=== PATIENT | female | born 1940 | race Caucasian/White ===

== ENCOUNTER 2019-04-06 07:40 | Outpatient (CLI) | payer MEDICARE, SELFPAY ==
--- NOTE | 2019-04-11 | SLEEP_ITS ---
CPAP Titration DATE OF STUDY: 04/06/2019 ORDERING PHYSICIAN: Katelynn Larsen M.D. REASON FOR THIS STUDY: Moderate obstructive sleep apnea on a prior study, 01/26/2019. HISTORY: This patient is a 78-year-old female, 72 inches tall, weighing 270 pounds with a body mass index of 36.6. On 01/26/2019, she underwent a basic nocturnal polysomnogram for complaints of tiredness and excessive daytime sleepiness. She had an apnea-hypopnea index of 19.5 with a minimum saturation of 88%. Her sleep apnea was severe during supine REM with an AHI of 32.2, worse in non-supine REM. She returns for a CPAP titration. MEDICAL COMORBIDITIES: 1. Paroxysmal atrial fibrillation. 2. Hypertension. 3. Hyperlipidemia. 4. Morbid obesity. 5. Anxiety. 6. COPD. 7. Hypothyroidism. 8. Degenerative joint disease. 9. Gastroesophageal reflux disease. HABITS: No history of tobacco. No alcohol. No recreational drugs. She does consume caffeine. DESCRIPTION OF THE STUDY: On the [place] Sleepiness Scale, her score was 12. This was conducted as a full night CPAP titration using the [employer] multiple channel system including EOG, EEG, submental EMG, EKG, nasal and oral airflow using thermistors and nasal pressure sensors, chest and abdominal belts, body position data and pulse oximetry. The study was scored using CMS guidelines. Duration of the study was 390.3 minutes. Sleep time was 307 minutes. Sleep efficiency was 78.7%. Sleep latency was prolonged at 31.9 minutes. REM latency was short at 70 minutes. There were 21 awakenings and the patient spent 14% of the study awake after sleep onset, 51.4 minutes. Sleep architecture showed 6.7% stage I sleep, 63.8% stage II sleep, no stage III sleep, and 15.2% stage REM. Sleep architecture was relatively well consolidated with 3 REM episodes. The apnea-hypopnea index was 6.6. The obstructive index was 6.1 and the central index was 0.6. During supine REM, the patient had 1 obstructive apnea, 2 central apneas, 16 obstructive hypopneas for an index of 20.9. In supine non-REM, she had 1 obstructive apnea, 1 central apnea, 13 obstructive hypopneas for an index of 3.6. No events occurred in non-supine non-REM. The lowest desaturation was 81%. The patient spent 2.9 minutes below 88%, 0.7% of the study. There were 32 desaturations of 4% or greater for an index of 4.9. This was higher during REM at 19.8. AROUSALS: Fifty-six arousals for an index of 8.6. There were 14 snores for an index of 2.2, 36 spontaneous arousals for an index of 5.5, and 6 limb movements for an arousal index of 0.9. LIMB MOVEMENTS: Thirty-seven limb movements for an index of 7.2. EKG: Sinus rhythm, sinus bradycardia, mean heart rate 58. During this titration, the patient used a small AirFit P10 nasal pillow, heated humidity with an initial pressure of 5 cm titrating up to 10 cm. At 10 cm, the patient had 1 hour 31 minutes in bed, 25 minutes in REM, 1 hour in non-REM, 1 central apnea, 2 hypopneas for an index of 2.1, and a minimum saturation of 89%. Sleep efficiency was 92%. IMPRESSION: 1. This CPAP titration shows an optimal pressure of 10 cm of water pressure using an AirFit P10 nasal pillow, small size with heated humidity. This should be used with all episodes of sleep. 2. Events were worse in supine REM. This appeared to be optimized at optimal pressure. 3. Other medical comorbidities as listed. Close clinical followup is recommended. Snoring was mild and intermittent and this resolved at the optimal pressure. MICHAEL KOHLI M.D. BOILER REPAIRMAN BOILER REPAIRMAN D I MT:
== END 2019-04-06 07:41 | disposition home or self-care (01) ==
LOC: ANHCSM 07:40
PROVIDERS: PCP Family Medicine; Visit Provider Internal Medicine Cardiovascular Disease
DX: G47.33 Obstructive sleep apnea (adult) (pediatric) (principal); I10 Essential (primary) hypertension; J44.9 Chronic obstructive pulmonary disease, unspecified; E03.9 Hypothyroidism, unspecified; I48.0 Paroxysmal atrial fibrillation; K21.9 Gastro-esophageal reflux disease without esophagitis
CPT/HCPCS: 95811

== ENCOUNTER 2019-04-13 09:19 | Outpatient (CLI) | payer MEDICARE, SELFPAY ==
[2019-04-13 09:32] LABS: Basophils Absolute Auto 0.1 K/mm3 (0.0-0.1); Eosinophils Absolute Auto 0.2 K/mm3 (0-0.3); Eosinophils Percent Auto 2.4 % (0-4.4); Hematocrit 43.7 % (37.0-47.0); Hemoglobin 14.2 g/dL (12.0-15.0); Immature Granulocyte Absolute 0.01 K/mm3 (0.00-0.031); Immature Granulocyte Percent A 0.2 % (0-0.5); Lymphocytes Absolute Auto 2.12 K/mm3 (0.9-3.2); Lymphocytes Percent Auto 34.4 % (18.3-44.2); Mean Corpuscular HGB Conc 32.5 g/dl (32-36); Mean Corpuscular Hemoglobin 28.5 pg (26-34); Mean Corpuscular Volume 87.8 fl (80-100); Monocytes Absolute Auto 0.4 K/mm3 (0.1-0.6); Neutrophils Absolute Auto 3.5 K/mm3 (1.3-6.7); Platelet Count Result 206 k/mm3 (150-375); Red Blood Count 4.98 M/mm3 (4.2-5.4); Red Cell Distribution Width 14.6 % (11.5-14.5); White Blood Count 6.2 K/mm3 (4.5-10.0)
[2019-04-13 09:36] LABS: Blood Urea Nitrogen 19 mg/dL (8-26); Carbon Dioxide 28 mmol/L (22-30); Chloride 103 mmol/L (98-109); Estimated Glomerular Filt Rate > 60; Glucose 130 mg/dL (70-105); Potassium 3.8 mmol/L (3.5-4.9); Sodium 141 mmol/L (138-146)
== END 2019-04-13 09:20 | disposition home or self-care (01) ==
LOC: ANHLAB 09:20
PROVIDERS: PCP Family Medicine; Visit Provider Internal Medicine Hematology & Oncology
DX: D75.1 Secondary polycythemia (principal)
CPT/HCPCS: 36415; 80048; 85025

== ENCOUNTER 2019-07-06 11:15 | Outpatient (CLI) | payer MEDICARE, SELFPAY ==
[2019-07-06 11:39] LABS: Basophils Absolute Auto 0.1 K/mm3 (0.0-0.1); Basophils Percent Auto 0.9 % (0.2-1.2); Eosinophils Absolute Auto 0.2 K/mm3 (0-0.3); Eosinophils Percent Auto 2.6 % (0-4.4); Hematocrit 43.7 % (37.0-47.0); Hemoglobin 13.8 g/dL (12.0-15.0); Immature Granulocyte Absolute 0.02 K/mm3 (0.00-0.031); Immature Granulocyte Percent A 0.3 % (0-0.5); Lymphocytes Absolute Auto 2.17 K/mm3 (0.9-3.2); Lymphocytes Percent Auto 33.3 % (18.3-44.2); Mean Corpuscular HGB Conc 31.6 g/dl (32-36); Mean Corpuscular Hemoglobin 28.3 pg (26-34); Mean Corpuscular Volume 89.7 fl (80-100); Mean Platelet Volume 9.9 fl (7.4-10.4); Monocytes Absolute Auto 0.4 K/mm3 (0.1-0.6); Monocytes Percent Auto 5.4 % (2.6-8.5); Neutrophils Absolute Auto 3.8 K/mm3 (1.3-6.7); Neutrophils Percent Auto 57.5 % (45.5-73.1); Platelet Count Result 235 k/mm3 (150-375); Red Blood Count 4.87 M/mm3 (4.2-5.4); Red Cell Distribution Width 14.6 % (11.5-14.5); White Blood Count 6.5 K/mm3 (4.5-10.0)
[2019-07-06 11:44] LABS: Blood Urea Nitrogen 20 mg/dL (8-26); Carbon Dioxide 30 mmol/L (22-30); Chloride 102 mmol/L (98-109); Estimated Glomerular Filt Rate 60; Glucose 129 mg/dL (70-105); Sodium 140 mmol/L (138-146)
== END 2019-07-06 11:16 | disposition home or self-care (01) ==
LOC: ANHLAB 11:16
PROVIDERS: PCP Family Medicine; Visit Provider Internal Medicine Hematology & Oncology
DX: D75.1 Secondary polycythemia (principal)
CPT/HCPCS: 36415; 80048; 85025

== ENCOUNTER 2019-07-27 09:54 | Outpatient (CLI) | payer MEDICARE, SELFPAY ==
--- NOTE | ~2019-07-27 | NM_ITS ---
EXAMINATION: NM bone scan whole body DATE: 07/27/2019 13:54 INDICATION: Low back pain TECHNIQUE: 23.6 mCi Tc-99m HDP was administered intravenously. Delayed whole-body scintigrams were o btained. COMPARISON: CT abdomen and pelvis dated 11/04/2016 and sacrum and coccyx radiographs dated 05/23/2018 FINDINGS: Mild lumbar dextrocurvature. Mild likely degenerative joint centered uptake at the bilateral acromioc lavicular joints, the bilateral patellofemoral joints, right greater than left and at several lumbar and lower thoracic facet joints most prominently on the left at L3-L4 there is corresponding severe o steoarthritis with vacuum phenomena on the prior CT. No other suspicious foci of abnormal bone uptake . IMPRESSION: 1. Mild likely degenerative joint centered uptake as detailed above. No other lesions suspicious for metastatic disease, fracture or other acute osseous abnormality. Reviewed, dictated and finalized at location A. IMPRESSION: 1. Mild likely degenerative joint centered uptake as detailed above. No other l esions suspicious for metastatic disease, fracture or other acute osseous abnor mality.
== END 2019-07-27 09:55 | disposition home or self-care (01) ==
PROVIDERS: PCP Family Medicine; Visit Provider Orthopaedic Surgery
DX: M54.5 Low back pain (principal)
CPT/HCPCS: 78306; A9561

== ENCOUNTER 2019-12-21 11:39 | Outpatient (CLI) | payer MEDICARE, SELFPAY ==
[2019-12-21 12:10] LABS: Basophils Absolute Auto 0.1 K/mm3 (0.0-0.1); Basophils Percent Auto 0.9 % (0.2-1.2); Eosinophils Absolute Auto 0.2 K/mm3 (0-0.3); Eosinophils Percent Auto 2.5 % (0-4.4); Hematocrit 45.1 % (37.0-47.0); Hemoglobin 14.4 g/dL (12.0-15.0); Immature Granulocyte Absolute 0.01 K/mm3 (0.00-0.031); Immature Granulocyte Percent A 0.2 % (0-0.5); Lymphocytes Absolute Auto 2.42 K/mm3 (0.9-3.2); Lymphocytes Percent Auto 38.3 % (18.3-44.2); Mean Corpuscular HGB Conc 31.9 g/dl (32-36); Mean Corpuscular Volume 87.6 fl (80-100); Mean Platelet Volume 10.1 fl (7.4-10.4); Monocytes Absolute Auto 0.4 K/mm3 (0.1-0.6); Monocytes Percent Auto 6.8 % (2.6-8.5); Neutrophils Absolute Auto 3.2 K/mm3 (1.3-6.7); Neutrophils Percent Auto 51.3 % (45.5-73.1); Platelet Count Result 231 k/mm3 (150-375); Red Blood Count 5.15 M/mm3 (4.2-5.4); Red Cell Distribution Width 14.4 % (11.5-14.5); White Blood Count 6.3 K/mm3 (4.5-10.0)
[2019-12-21 17:11] LABS: Alanine Aminotransferase 22 U/L (4-35); Albumin Level 4.1 g/dL (3.5-5.1); Alkaline Phosphatase 123 U/L (38-126); Anion Gap 7 mmol/L (8-16); Aspartate Amino Transferase 27 U/L (14-36); Bilirubin,Total 0.3 mg/dL (0.2-1.3); Blood Urea Nitrogen 23 mg/dL (7-17); Carbon Dioxide 31 mmol/L (22-30); Chloride 105 mmol/L (98-107); Estimated Glomerular Filt Rate > 60; Glucose 110 mg/dL (65-105); Potassium 4.5 mmol/L (3.4-5.0); Sodium 143 mmol/L (137-145)
== END 2019-12-21 11:40 | disposition home or self-care (01) ==
PROVIDERS: PCP Family Medicine; Visit Provider Internal Medicine Hematology & Oncology
DX: D75.1 Secondary polycythemia (principal)
CPT/HCPCS: 36415; 80053; 85025

== ENCOUNTER 2020-02-23 11:30 | Outpatient (CLI) | payer MEDICARE, SELFPAY ==
--- NOTE | ~2020-02-23 | US_ITS ---
US renal BI 02/23/2020 12:12 Procedure: Realtime transabdominal ultrasound of the kidneys and bladder. Indication: UTI Comparison: UTI Findings: Renal echotexture is normal bilaterally without hydronephrosis, contour deforming mass or r enal calculus. The right kidney measures 10.1 cm and left kidney measures 10.5 cm. Bladder within no rmal limits. Impression: 1: Unremarkable renal ultrasound. No stones, masses or hydronephrosis. Reviewed, dictated and finalized at location A. ALS COORDINATOR Impression: 1: Unremarkable renal ultrasound. No stones, masses or hydronephrosis.
== END 2020-02-23 11:31 | disposition home or self-care (01) ==
PROVIDERS: PCP Family Medicine; Visit Provider Internal Medicine Infectious Disease
DX: N39.0 Urinary tract infection, site not specified (principal)
CPT/HCPCS: 76775

== ENCOUNTER 2020-06-15 12:57 | Outpatient (CLI) | payer MEDICARE, SELFPAY | END 2020-06-15 12:58 | disposition home or self-care (01) | LOC: ANHAUDASC 13:00 | PROVIDERS: PCP Family Medicine; Visit Provider Otolaryngology | DX: H90.3 Sensorineural hearing loss, bilateral (principal) | CPT/HCPCS: 92557; 92567 ==

== ENCOUNTER 2020-07-12 09:24 | Outpatient (CLI) | payer MEDICARE, SELFPAY ==
[2020-07-12 09:50] LABS: Basophils Absolute Auto 0.1 K/mm3 (0.0-0.1); Basophils Percent Auto 1.1 % (0.2-1.2); Eosinophils Absolute Auto 0.2 K/mm3 (0-0.3); Eosinophils Percent Auto 3.1 % (0-4.4); Hematocrit 44.3 % (37.0-47.0); Hemoglobin 14.4 g/dL (12.0-15.0); Immature Granulocyte Absolute 0.01 K/mm3 (0.00-0.031); Immature Granulocyte Percent A 0.2 % (0-0.5); Lymphocytes Absolute Auto 2.23 K/mm3 (0.9-3.2); Lymphocytes Percent Auto 40.9 % (18.3-44.2); Mean Corpuscular HGB Conc 32.5 g/dl (32-36); Mean Corpuscular Hemoglobin 28.3 pg (26-34); Mean Corpuscular Volume 87.2 fl (80-100); Monocytes Absolute Auto 0.4 K/mm3 (0.1-0.6); Monocytes Percent Auto 6.4 % (2.6-8.5); Neutrophils Absolute Auto 2.6 K/mm3 (1.3-6.7); Neutrophils Percent Auto 48.3 % (45.5-73.1); Platelet Count Result 221 k/mm3 (150-375); Red Blood Count 5.08 M/mm3 (4.2-5.4); Red Cell Distribution Width 14.1 % (11.5-14.5); White Blood Count 5.5 K/mm3 (4.5-10.0)
== END 2020-07-12 09:25 | disposition home or self-care (01) ==
PROVIDERS: PCP Family Medicine; Visit Provider Internal Medicine Hematology & Oncology
DX: D75.1 Secondary polycythemia (principal)
CPT/HCPCS: 36415; 85025

== ENCOUNTER 2021-04-10 14:22 | Outpatient (CLI) | payer MEDICARE, SELFPAY ==
[2021-04-10 14:37] LABS: Basophils Absolute Auto 0.1 K/mm3 (0.0-0.1); Basophils Percent Auto 1.2 % (0.2-1.2); Eosinophils Absolute Auto 0.2 K/mm3 (0-0.3); Hematocrit 44.2 % (37.0-47.0); Immature Granulocyte Absolute 0.01 K/mm3 (0.00-0.031); Immature Granulocyte Percent A 0.2 % (0-0.5); Lymphocytes Absolute Auto 2.38 K/mm3 (0.9-3.2); Lymphocytes Percent Auto 40.1 % (18.3-44.2); Mean Corpuscular HGB Conc 31.7 g/dl (32-36); Mean Corpuscular Hemoglobin 29.3 pg (26-34); Mean Corpuscular Volume 92.5 fl (80-100); Mean Platelet Volume 10.3 fl (7.4-10.4); Monocytes Absolute Auto 0.4 K/mm3 (0.1-0.6); Monocytes Percent Auto 6.7 % (2.6-8.5); Neutrophils Absolute Auto 2.8 K/mm3 (1.3-6.7); Neutrophils Percent Auto 47.8 % (45.5-73.1); Platelet Count Result 221 k/mm3 (150-375); Red Blood Count 4.78 M/mm3 (4.2-5.4); Red Cell Distribution Width 14.2 % (11.5-14.5); White Blood Count 5.9 K/mm3 (4.5-10.0)
[2021-04-10 14:41] LABS: Blood Urea Nitrogen 23 mg/dL (8-26); Carbon Dioxide 25 mmol/L (22-30); Chloride 103 mmol/L (98-109); Estimated Glomerular Filt Rate > 60; Glucose 110 mg/dL (70-105); Potassium 3.9 mmol/L (3.5-4.9); Sodium 141 mmol/L (138-146)
[2021-04-10 16:46] LABS: Alanine Aminotransferase 21 U/L (4-35); Albumin Level 4.3 g/dL (3.5-5.1); Alkaline Phosphatase 113 U/L (38-126); Anion Gap 8 mmol/L (8-16); Aspartate Amino Transferase 55 U/L (14-36); Bilirubin,Total 0.6 mg/dL (0.2-1.3); Blood Urea Nitrogen 23 mg/dL (7-17); Calcium 10.1 mg/dL (8.4-10.2); Carbon Dioxide 26 mmol/L (22-30); Chloride 104 mmol/L (98-107); Estimated Glomerular Filt Rate > 60; Glucose 108 mg/dL (65-110); Sodium 138 mmol/L (137-145)
== END 2021-04-10 14:23 | disposition home or self-care (01) ==
LOC: ANHLAB 14:23
PROVIDERS: PCP Family Medicine; Visit Provider Internal Medicine Hematology & Oncology
DX: D75.1 Secondary polycythemia (principal)
CPT/HCPCS: 36415; 80053; 85025

== ENCOUNTER 2021-05-09 14:45 | Emergency (ER) | payer MEDICARE, SELFPAY ==
[2021-05-09 14:51] VITALS: BP 137/58; PULSE 92; PULSE 93; RESP 18; TEMP 36.9; O2SAT 94; O2SAT 95
[2021-05-09 14:52] VITALS: BP 137/58; PULSE 89; O2SAT 98
[2021-05-09] MEDS: SODIUM CHLORIDE 0.9% IV 1,000 ML 999 ML IV CONT (15:09)
[2021-05-09 15:16] LABS: Basophils Percent Auto 0.4 % (0.2-1.2); Eosinophils Percent Auto 0.3 % (0-4.4); Hematocrit 48.2 % (37.0-47.0); Hemoglobin 15.4 g/dL (12.0-15.0); Immature Granulocyte Absolute 0.01 K/mm3 (0.00-0.031); Immature Granulocyte Percent A 0.1 % (0-0.5); Lymphocytes Absolute Auto 0.48 K/mm3 (0.9-3.2); Lymphocytes Percent Auto 6.5 % (18.3-44.2); Mean Corpuscular Volume 90.8 fl (80-100); Mean Platelet Volume 10.1 fl (7.4-10.4); Monocytes Absolute Auto 0.2 K/mm3 (0.1-0.6); Monocytes Percent Auto 2.9 % (2.6-8.5); Neutrophils Absolute Auto 6.6 K/mm3 (1.3-6.7); Neutrophils Percent Auto 89.8 % (45.5-73.1); Platelet Count Result 207 k/mm3 (150-375); Red Blood Count 5.31 M/mm3 (4.2-5.4); Red Cell Distribution Width 14.4 % (11.5-14.5); White Blood Count 7.3 K/mm3 (4.5-10.0)
[2021-05-09 15:25] LABS: Lactic Acid Reflex 1.3 mmol/L (0.7-2.1)
[2021-05-09 15:26] LABS: Alanine Aminotransferase 20 U/L (4-35); Albumin Level 4.1 g/dL (3.5-5.1); Alkaline Phosphatase 105 U/L (38-126); Anion Gap 5 mmol/L (8-16); Aspartate Amino Transferase 25 U/L (14-36); Bilirubin,Total 0.6 mg/dL (0.2-1.3); Blood Urea Nitrogen 21 mg/dL (7-17); Calcium 9.1 mg/dL (8.4-10.2); Carbon Dioxide 29 mmol/L (22-30); Chloride 103 mmol/L (98-107); Estimated CRCL calculation 80 ml/min; Estimated Glomerular Filt Rate > 60; Glucose 141 mg/dL (65-110); Lipase 48 U/L (23-300); Potassium 4.1 mmol/L (3.4-5.0); Sodium 137 mmol/L (137-145)
[2021-05-09 15:33] VITALS: PULSE 80; O2SAT 97
--- NOTE | 2021-05-09 16:05 | ED.NAVMDI ---
HPI - Nausea/Vomiting/Diarrhea General Chief complaint: Nausea/Vomiting/Diarrhea Stated complaint: n/v/d Time Seen by Provider: 05/09/21 14:52 Source: patient History of Present Illness HPI Narrative: Patient presents with nausea, vomiting, and diarrhea. Patient reports she has been sick all day and then hard time tolerating p.o. so she came to the ER for further evaluation. Reports diffuse body aches and feels like she has chills. EMS gave her Zofran in route and she reports she is starting to feel improved. She denies any urinary symptoms denies any blood or bile or melena denies any known sick contacts. Related Data Home Medications Medication Instructions Recorded Confirmed omeprazole 20 mg capsule,delayed 20 mg PO DAILY 04/20/19 08/25/20 release levothyroxine 100 mcg tablet 125 mcg PO DAILY tablet 04/22/19 08/25/20 metoprolol succinate 25 mg 50 mg PO DAILY tablet 04/22/19 08/25/20 tablet,extended release 24 hr aspirin 227 mg-acetaminophen 194 1 tablet PO ONCE 11/30/19 08/25/20 mg-caffeine 33 mg tablet pravastatin 10 mg tablet 10 mg PO DAILY 06/17/20 08/25/20 pregabalin 100 mg capsule 100 mg PO DAILY cap 06/17/20 08/25/20 Allergies Allergy/AdvReac Type Severity Reaction Status Date / Time atorvastatin Allergy Mild Muscle Pain Verified 08/25/20 14:59 ciprofloxacin Allergy Unknown Hives Verified 08/25/20 14:59 codeine Allergy Unknown UNKNOWN Verified 08/25/20 14:59 levofloxacin Allergy Unknown Rash Verified 08/25/20 14:59 nitrofurantoin Allergy Unknown ITCH AND Verified 08/25/20 14:59 DIZZY Penicillins Allergy Unknown UTI Verified 08/25/20 14:59 prednisone Allergy Unknown Hives / Verified 08/25/20 14:59 Red Face Sulfa (Sulfonamide Allergy Unknown Anaphylactic Verified 08/25/20 14:59 Antibiotics) Shock Contrast Media Allergy Unknown Hives and Uncoded 07/13/20 11:19 rash Review of Systems Review of Systems: CONSTITUTIONAL: Reports chills and sweats EYES: Denies visual changes, redness, or discharge. ENT: Denies rhinorrhea, congestion, sore throat, or otalgia. CARDIOVASCULAR: Denies chest pain, palpitations, or edema. RESPIRATORY: Denies cough or dyspnea. GASTROINTESTINAL: Reports nausea vomiting and diarrhea GENITOURINARY: Denies dysuria or hematuria. SKIN: Denies rash or itching. MUSCULOSKELETAL: Denies back pain, joint pain, or myalgia. NEUROLOGIC: Denies headache, numbness, dizziness, or weakness. PSYCHIATRIC: Denies anxiety or depression. All systems reviewed & are unremarkable except as noted in HPI and below PMFSH Past Medical History Medical History Chronic atrial fibrillation Frequent urinary tract infections Hypersomnia Hypothyroidism Obesity (BMI 30-39.9) Obstructive sleep apnea Pulmonary hypertension Rhinitis Shortness of Breath Sleep-disordered breathing SOB (shortness of breath) Surgical History Surgical History History of hysterectomy Family History Family History Mother Carcinoma of colon Father Family history of emphysema, Onset Age: 60 Social History Social History Smoking status: Never smoker Alcohol intake: never Substance use: never Exam Narrative: GENERAL: Well-appearing, well-nourished, and in no acute distress. HEAD: Normocephalic, atraumatic. EYES: PERRLA and EOMI. ENT: Nares clear, no rhinorrhea or epistaxis. Mucous membranes moist. NECK: Supple. No masses. No JVD CHEST: Clear to auscultation. No respiratory distress. No wheezes rales or rhonchi HEART: Regular rate and rhythm. No murmur heard. Normal peripheral pulses. ABDOMEN: Soft, nontender, nondistended, normal active bowel sounds. EXTREMITIES: Normal range of motion. No edema. SKIN: Warm, dry, no rash. NEURO: No focal deficits. Alert and oriented
[2021-05-09 16:08] VITALS: PULSE 78; O2SAT 90
[2021-05-09 16:52] LABS: Add Urine Microscopic? YES; Appearance Urine Cloudy (Clear); Bacteria Urine Trace /hpf; Bilirubin Urine Negative (Negative); Blood Urine Negative (Negative); Color Urine Yellow (Yellow); Glucose Urine UA Negative (Negative); Ketones Urine Negative (Negative); Leukocyte Esterase Ur Negative LEU/UL (Negative); Mucus Urine Moderate /lpf; Nitrate Urine Negative (Negative); Protein Urine 1+ mg/dL (Negative); RBC Urine 0-2 /hpf (0-2); Specific Grav Ur 1.023 (1.001-1.035); Squamous Epithelial Cell Urine Rare /hpf (Few); Urobilinogen Urine Negative mg/dL (<2.0); WBC Urine 0-3 /hpf
--- NOTE | 2021-05-09 17:23 | PC.NURSE ---
Patient walked without difficulty with personal assistive devices, EDP made aware at this time.
== END 2021-05-09 18:05 | disposition home or self-care (01) ==
PROVIDERS: Emergency Provider Emergency Medicine; PCP Family Medicine
DX: R11.2 Nausea with vomiting, unspecified (principal); R52 Pain, unspecified; I48.20 Chronic atrial fibrillation, unspecified; Z87.440 Personal history of urinary (tract) infections; E03.9 Hypothyroidism, unspecified; G47.33 Obstructive sleep apnea (adult) (pediatric); E66.9 Obesity, unspecified; Z68.37 Body mass index [BMI] 37.0-37.9, adult; I27.20 Pulmonary hypertension, unspecified; Z79.82 Long term (current) use of aspirin
CPT/HCPCS: 36415; 51701; 80053; 81001; 83605; 83690; 85025; 96360; 99283; J7030

== ENCOUNTER 2021-06-16 06:02 | Emergency (ER) | payer MEDICARE, SELFPAY ==
[2021-06-16 06:18] VITALS: BP 175/76; PULSE 75; RESP 20; TEMP 36.2; O2SAT 98
[2021-06-16 06:36] VITALS: O2SAT 96
--- NOTE | 2021-06-16 06:51 | ED.URI ---
HPI - URI/Sore Throat General Chief Complaint: Upper Respiratory Infection Stated Complaint: URI, wants COVID test Time Seen by Provider: 06/16/21 06:19 Source: patient Mode of arrival: ambulatory Limitations: no limitations History of Present Illness HPI Narrative: Patient is an 80-year-old female here to on to get tested for COVID because my nephew is going back to [place] . Patient states that she been having URI symptoms, described as cough, runny nose for the past few days. Patient denies any chest pain, shortness of breath, abdominal pain, nausea, vomiting, diarrhea, fever or chills. Related Data Home Medications Medication Instructions Recorded Confirmed omeprazole 20 mg capsule,delayed 20 mg PO DAILY 04/20/19 08/25/20 release levothyroxine 100 mcg tablet 125 mcg PO DAILY tablet 04/22/19 08/25/20 metoprolol succinate 25 mg 50 mg PO DAILY tablet 04/22/19 08/25/20 tablet,extended release 24 hr aspirin 227 mg-acetaminophen 194 1 tablet PO ONCE 11/30/19 08/25/20 mg-caffeine 33 mg tablet pravastatin 10 mg tablet 10 mg PO DAILY 06/17/20 08/25/20 pregabalin 100 mg capsule 100 mg PO DAILY cap 06/17/20 08/25/20 Allergies Allergy/AdvReac Type Severity Reaction Status Date / Time atorvastatin Allergy Mild Muscle Pain Verified 06/16/21 06:23 ciprofloxacin Allergy Unknown Hives Verified 06/16/21 06:23 codeine Allergy Unknown UNKNOWN Verified 06/16/21 06:23 levofloxacin Allergy Unknown Rash Verified 06/16/21 06:23 nitrofurantoin Allergy Unknown ITCH AND Verified 06/16/21 06:23 DIZZY Penicillins Allergy Unknown UTI Verified 06/16/21 06:23 prednisone Allergy Unknown Hives / Verified 06/16/21 06:23 Red Face Sulfa (Sulfonamide Allergy Unknown Anaphylactic Verified 06/16/21 06:23 Antibiotics) Shock Contrast Media Allergy Unknown Hives and Uncoded 07/13/20 11:19 rash Review of Systems Review of Systems: Per HPI [facility] Past Medical History Medical History Chronic atrial fibrillation Frequent urinary tract infections Hypersomnia Hypothyroidism Obesity (BMI 30-39.9) Obstructive sleep apnea Pulmonary hypertension Rhinitis Shortness of Breath Sleep-disordered breathing SOB (shortness of breath) Surgical History Surgical History History of hysterectomy Family History Family History Mother Carcinoma of colon Father Family history of emphysema, Onset Age: 60 Social History Social History Smoking status: Never smoker Alcohol intake: never Substance use: never Exam Const: General: cooperative, comfortable, no acute distress, well developed, alert and awake; No confusion Nutritional Appearance: obese Orientation/consciousness: oriented to person, oriented to place, oriented to time, patient oriented x3 and No confusion Limitations: no limitations HENMT: Head: normal to inspection, normocephalic and atraumatic Ears: hearing grossly normal bilaterally, TM normal on the right and TM normal on the left General nose exam: Normal external nose present, Normal nares present and No nasal discharge present Face and sinus: normal facial exam Mouth: Yes Normal oral and palatal mucosa present, Yes lip normal, Yes tongue normal and Yes oropharynx normal Throat: posterior oropharynx normal, tonsils normal and uvula midline Eyes: General: appearance normal, both eyes and all related structures Pupils: Equal, round and reactive pupils present EOM: EOMs intact bilaterally Neck: Neck: normal visual inspection, full ROM, no lymphadenopathy and no meningeal signs Chest: Chest palpation & inspection: normal inspection of the chest Resp: Effort & Inspection: normal respiratory effort, able to speak in complete sentences, no respiratory distress and not tachypneic Auscu
[2021-06-16 07:19] LABS: Influenza A QL RT-PCR Negative (Negative); Influenza B QL RT-PCR Negative (Negative); SARS-CoV-2 RNA PCR Negative
--- NOTE | 2021-06-16 07:21 | PC.NURSE ---
Patient report received from RODNEY Atkinson. All questions answered and care of patient assumed. Patient resting comfortably in stretcher at this time. Awaiting lab results and disposition. Will address needs as they arise.
== END 2021-06-16 07:53 | disposition home or self-care (01) ==
LOC: ANHED 06:51
PROVIDERS: Emergency Provider Emergency Medicine; PCP Family Medicine
DX: J06.9 Acute upper respiratory infection, unspecified (principal); Z20.822 Contact with and (suspected) exposure to COVID-19; I48.20 Chronic atrial fibrillation, unspecified; I27.20 Pulmonary hypertension, unspecified; E03.9 Hypothyroidism, unspecified; G47.33 Obstructive sleep apnea (adult) (pediatric); E66.9 Obesity, unspecified; Z68.37 Body mass index [BMI] 37.0-37.9, adult; Z87.442 Personal history of urinary calculi; Z79.82 Long term (current) use of aspirin
CPT/HCPCS: 87502; 99283; C9803; U0003; U0005

== ENCOUNTER 2021-08-03 13:55 | Outpatient (CLI) | payer MEDICARE, SELFPAY ==
--- NOTE | ~2021-08-03 | US_ITS ---
EXAMINATION: US art doppler w press LE BI DATE: 08/03/2021 15:36 INDICATION: Peripheral vascular disease and hypercholesterolemia TECHNIQUE: Segmental pressures and plethysmographic and Doppler waveforms of the brachial and lower e xtremity arteries were obtained. COMPARISON: None. FINDINGS: Right and left brachial artery pressures of 161 mm Hg and 160 mm Hg, respectively, are concordant (no rmal difference <= 30 mmHg). The right and left high-thigh pressure indices are unable to be assessed due to inability to occlude the vessels in either thigh (normal > 1.2). The right ankle-brachial index (FLAVIA) is 1.16 (normal >= 0.9-1). The right great toe-brachial index (T BI) is 0.25 (normal >= 0.6-0.8). The right lower extremity segmental pressure gradients are normal (n ormal gradients <= 20-30 mmHg between adjacent levels on the same leg or the same levels on the two l egs). Arterial waveforms are biphasic with brisk systolic upstrokes throughout the arteries of the ri ght lower limb. The left FLAVIA is 0.94. The left TBI is 0.47. The left lower extremity segmental pressure gradients are increased between the left dorsalis pedis and posterior tibial arteries and the corresponding arteri es at the contralateral right ankle. Arterial waveforms are biphasic with brisk systolic upstrokes th roughout the arteries of the left lower limb. IMPRESSION: 1. Arterial occlusive disease to the bilateral lower limbs with moderate to severely decreased right TBI and moderately decreased left TBI. Reviewed, dictated and finalized at location A. IMPRESSION: 1. Arterial occlusive disease to the bilateral lower limbs with moderate to sev erely decreased right TBI and moderately decreased left TBI.
== END 2021-08-03 13:56 | disposition home or self-care (01) ==
PROVIDERS: PCP Family Medicine; Visit Provider Podiatrist Foot & Ankle Surgery
DX: I73.9 Peripheral vascular disease, unspecified (principal)
CPT/HCPCS: 93923

== ENCOUNTER 2022-02-05 10:02 | Outpatient (CLI) | payer MEDICARE, SELFPAY | END 2022-02-05 10:03 | disposition home or self-care (01) | LOC: ANHAUDIO 10:06 | PROVIDERS: PCP Family Medicine; Visit Provider Otolaryngology | DX: H90.3 Sensorineural hearing loss, bilateral (principal) | CPT/HCPCS: 92557; 92567 ==

== ENCOUNTER 2022-04-03 14:03 | Outpatient (CLI) | payer MEDICARE, SELFPAY ==
--- NOTE | 2022-04-04 07:25 | WPDPFTINT ---
PFT Procedure Performed PFT Procedure Performed Spirometry with Pre/Post Bronchodilator Plethysmography (Lung Vol) Diffusing Cap (DLCO) Flow Vol Loop PFT Interpretation This is a pulmonary function test with pre and post-bronchodilator spirometry, plethysmography and diffusing capacity. The test was performed and results interpreted in accordance with the 2019 and 2005 ATS/ERS Task Force guidelines respectively using the Global Lung Function Initiative-2012 reference equations. Patient demonstrated good effort and cooperation. Reproducibility criteria were met. The quality of the pre bronchodilator spirometry maneuver was Grade A and post bronchodilator spirometry maneuver was Grade B. Findings: Spirometry: The contour the inspiratory and expiratory flow tracing are normal. The pre bronchodilator FVC is 2.42 L, 72% predicted. The pre bronchodilator FEV1 is 1.73 L, 72% predicted. The pre bronchodilator FEV1: FVC ratio 72%. The post bronchodilator FVC is 2.38 L, representing a 2% decrease. The post bronchodilator FEV1 is 1.82 L, representing a 5% increase. The post bronchodilator FEV1: FVC ratio 77%. Plethysmography: Total lung capacity is 5.08 L, 81% predicted. The functional residual capacity is 3.56 L, 97% predicted. The residual volume is 2.65 L, 94% predicted. Diffusion capacity: The diffusing capacity unadjusted for hemoglobin and carboxyhemoglobin is 15.5, 69% predicted. The diffusing capacity adjusted for alveolar volume is 4.23, 113% predicted. Impression: There is a mild restrictive ventilatory abnormality with a normal FEV1. The spirometry is normal without evidence of an obstructive abnormality. There is no significant improvement after inhaling a single dose of albuterol. The diffusing capacity unadjusted for hemoglobin and carboxyhemoglobin is mildly decreased and normalizes when adjusted for alveolar volume. There are no prior studies for comparison
== END 2022-04-03 14:04 | disposition home or self-care (01) ==
LOC: ANHPFT 14:06
PROVIDERS: PCP Family Medicine; Visit Provider Internal Medicine Critical Care Medicine
DX: J44.9 Chronic obstructive pulmonary disease, unspecified (principal); R94.2 Abnormal results of pulmonary function studies
CPT/HCPCS: 94060; 94726; 94729

== ENCOUNTER 2022-07-31 08:49 | Emergency (ER) | payer MEDICARE, SELFPAY ==
[2022-07-31] VITALS (14 sets, daily range): BP systolic 139–166; BP diastolic 22–86; PULSE 55–84; RESP 12–22; TEMP 36.4; O2SAT 97–100
--- NOTE | ~2022-07-31 | CT_ITS ---
EXAMINATION: CT abdomen pelvis wo con DATE: 07/31/2022 10:04 INDICATION: Left lower quadrant pain and nausea TECHNIQUE: Computed tomography (CT) of the abdomen and pelvis was performed without intravenous contr ast. The dose-length product (DLP) was 1562.73 mGy-cm. Automated exposure control and iterative recon struction technique were employed. COMPARISON: 10/25/2016 FINDINGS: Minimal dependent atelectasis is present in the lung bases. The heart size is normal. There is calcified coronary artery atherosclerosis. Punctate calcifications in an otherwise normal spleen likely represent healed granulomatous disease. The liver, pancreas, gallbladder, and adrenal glands a re normal. The kidneys are unremarkable. No stones are identified in the kidneys, ureters, or bladder . No hydronephrosis or hydroureter. No pathologically enlarged abdominal or pelvic lymph nodes are id entified. There is calcified atherosclerosis of the aorta and many of the other arteries. There is fe deidra impaction of the rectum. There is rectal wall thickening with edematous stranding of the perirect al fat. A small volume of presacral ascites is noted. Colonic diverticulosis is present without evide nce of diverticulitis. There is moderate lumbar spondylosis. IMPRESSION: 1. The impaction of the rectum with findings consistent with stercoral colitis. Reviewed, dictated and finalized at location A.
--- NOTE | 2022-07-31 09:35 | ED.GENADULT ---
HPI - General Adult General Chief complaint: Unspecified <Eleni Garcia PA-C - Last Filed: 07/31/22 12:17> Stated complaint: constipation <Eleni Garcia PA-C - Last Filed: 07/31/22 12:17> Time Seen by Provider: 07/31/22 09:05 <Eleni Garcia PA-C - Last Filed: 07/31/22 12:17> Source: patient <JAMES Mitchell Last Filed: 07/31/22 12:17> Mode of arrival: ambulatory <JAMES Mitchell Last Filed: 07/31/22 12:17> Limitations: no limitations <Eleni Garcia PA-C - Last Filed: 07/31/22 12:17> History of Present Illness HPI narrative: Patient is an 82-year-old female who presents to the ED with report of constipation. Patient reports having pain across her lower abdomen, worse in the left side for the last 1 week. She was started on Cipro last week by her primary care doctor for possible diverticulitis. Patient has been taking this as directed, but the pain has continued to worsen. She has not tried anything for the pain. She does also report having constipation for the last 3 days. She has tried taking MiraLAX, Dulcolax, Colace, prunes/prune juice without relief. She states she is only able to pass small pellets of stool. She reports nausea, but denies vomiting. Denies fever. Denies acute urinary concerns, but states she has frequent UTIs related to incontinence. <Eleni Garcia PA-C - Last Filed: 07/31/22 12:17> Related Data Home medications: Home Medications Medication Instructions Recorded Confirmed omeprazole 20 mg capsule,delayed 20 mg PO DAILY 04/20/19 03/01/22 release levothyroxine 100 mcg tablet 125 mcg PO DAILY 04/22/19 03/01/22 metoprolol succinate 25 mg 50 mg PO DAILY 04/22/19 03/01/22 tablet,extended release 24 hr aspirin 227 mg-acetaminophen 194 1 tablet PO ONCE 11/30/19 03/01/22 mg-caffeine 33 mg tablet pravastatin 10 mg tablet 10 mg PO DAILY 06/17/20 03/01/22 pregabalin 100 mg capsule (Lyrica) 100 mg PO DAILY 06/17/20 03/01/22 vibegron 75 mg tablet (Gemtesa) 75 mg PO DAILY 10/31/21 03/01/22 <Eleni Garcia PA-C - Last Filed: 07/31/22 12:17> Allergies/adverse reactions: Allergies Allergy/AdvReac Type Severity Reaction Status Date / Time atorvastatin Allergy Mild Muscle Pain Verified 07/31/22 09:31 ciprofloxacin Allergy Unknown Hives Verified 07/31/22 09:31 codeine Allergy Unknown UNKNOWN Verified 07/31/22 09:31 levofloxacin Allergy Unknown Rash Verified 07/31/22 09:31 nitrofurantoin Allergy Unknown ITCH AND Verified 07/31/22 09:31 DIZZY Penicillins Allergy Unknown UTI Verified 07/31/22 09:31 prednisone Allergy Unknown Hives / Verified 07/31/22 09:31 Red Face Sulfa (Sulfonamide Allergy Unknown Anaphylactic Verified 07/31/22 09:31 Antibiotics) Shock Contrast Media Allergy Unknown Hives and Uncoded 07/31/22 09:31 rash <Eleni Garcia PA-C - Last Filed: 07/31/22 12:17> Review of Systems Review of Systems: CONSTITUTIONAL: Denies fever, chills, or sweats. CARDIOVASCULAR: Denies chest pain. RESPIRATORY: Denies dyspnea. GASTROINTESTINAL: See HPI. GENITOURINARY: See HPI. SKIN: Denies rash or itching. MUSCULOSKELETAL: Denies back pain, joint pain, or myalgia. <Eleni Garcia PA-C - Last Filed: 07/31/22 12:17> All systems reviewed & are unremarkable except as noted in HPI and below <Eleni Garcia PA-C - Last Filed: 07/31/22 12:17> [facility] Past Medical History Medical History: Medical History Chronic atrial fibrillation Frequent urinary tract infections Hypersomnia Hypothyroidism Obesity (BMI 30-39.9) Obstructive sleep apnea Pulmonary hypertension Rhinitis Shortness of Breath Sleep-disordered breathing SOB (shortness of breath) <Eleni Garcia PA-C - Last Filed: 07/31/22 12:17> Surgical History Surgical History: Surgical History (Reviewed 07/31/22 @ 0
[2022-07-31 09:39] LABS: Basophils Percent Auto 0.8 % (0.2-1.2); Eosinophils Absolute Auto 0.1 K/mm3 (0-0.3); Eosinophils Percent Auto 2.5 % (0-4.4); Hematocrit 45.6 % (37.0-47.0); Hemoglobin 14.9 g/dL (12.0-15.0); Immature Granulocyte Absolute 0.01 K/mm3 (0.00-0.031); Immature Granulocyte Percent A 0.2 % (0-0.5); Lymphocytes Absolute Auto 1.63 K/mm3 (0.9-3.2); Lymphocytes Percent Auto 31.1 % (18.3-44.2); Mean Corpuscular HGB Conc 32.7 g/dl (32-36); Mean Corpuscular Hemoglobin 29.3 pg (26-34); Mean Corpuscular Volume 89.8 fl (80-100); Mean Platelet Volume 9.9 fl (7.4-10.4); Monocytes Absolute Auto 0.4 K/mm3 (0.1-0.6); Monocytes Percent Auto 6.9 % (2.6-8.5); Neutrophils Absolute Auto 3.1 K/mm3 (1.3-6.7); Neutrophils Percent Auto 58.5 % (45.5-73.1); Platelet Count Result 231 k/mm3 (150-375); Red Blood Count 5.08 M/mm3 (4.2-5.4); Red Cell Distribution Width 14.2 % (11.5-14.5); White Blood Count 5.2 K/mm3 (4.5-10.0)
[2022-07-31] MEDS: SODIUM CHLORIDE 0.9% IV 1,000 ML 999 ML IV CONT (09:52)
[2022-07-31 09:54] LABS: Appearance Urine Clear (Clear); Bilirubin Urine Negative (Negative); Blood Urine Negative (Negative); Color Urine Yellow (Yellow); Glucose Urine UA Negative (Negative); Ketones Urine Negative (Negative); Leukocyte Esterase Ur Negative LEU/UL (Negative); Nitrate Urine Negative (Negative); Protein Urine Negative (Negative); Specific Grav Ur 1.004 (1.001-1.035); Urobilinogen Urine 0.2 mg/dL (<2.0)
[2022-07-31 09:56] LABS: Add Urine Microscopic? NO
[2022-07-31 10:48] LABS: Alanine Aminotransferase 22 U/L (6-35); Albumin Level 4.3 g/dL (3.5-5.1); Alkaline Phosphatase 116 U/L (38-126); Anion Gap 5 mmol/L (8-16); Aspartate Amino Transferase 29 U/L (14-36); Bilirubin,Total 0.9 mg/dL (0.2-1.3); Blood Urea Nitrogen 15 mg/dL (7-17); Carbon Dioxide 34 mmol/L (22-30); Chloride 100 mmol/L (98-107); Estimated CRCL calculation 77 ml/min; Estimated Glomerular Filt Rate > 60; Glucose 101 mg/dL (65-110); Lipase 71 U/L (23-300); Potassium 4.1 mmol/L (3.4-5.0); Sodium 139 mmol/L (137-145)
--- NOTE | 2022-07-31 11:25 | PC.NURSE ---
approx 400ml SSE inserted at this time. patient tolerating well
--- NOTE | 2022-07-31 11:59 | PC.NURSE ---
patient received approx 500ml SSE, tolerated well. up to BSC and reports having a bowel movement and feeling like she is cleaned out. patient ready to go home. provider aware
== END 2022-07-31 12:35 | disposition home or self-care (01) ==
PROVIDERS: Emergency Provider Physician Assistant; PCP Family Medicine
DX: K59.00 Constipation, unspecified (principal); I48.20 Chronic atrial fibrillation, unspecified; I27.20 Pulmonary hypertension, unspecified; E03.9 Hypothyroidism, unspecified; G47.33 Obstructive sleep apnea (adult) (pediatric); E66.9 Obesity, unspecified; Z68.36 Body mass index [BMI] 36.0-36.9, adult; Z87.440 Personal history of urinary (tract) infections; Z90.710 Acquired absence of both cervix and uterus; Z79.82 Long term (current) use of aspirin
CPT/HCPCS: 36415; 74176; 80053; 81003; 83690; 85025; 96360; 99284; J7030

== ENCOUNTER 2022-08-02 08:38 | Emergency (ER) | payer MEDICARE, SELFPAY ==
[2022-08-02 08:39] VITALS: BP 130/75; PULSE 72; RESP 14; TEMP 36.4; O2SAT 100
--- NOTE | 2022-08-02 09:28 | ED.NAVMDI ---
HPI - Nausea/Vomiting/Diarrhea General Chief complaint: Nausea/Vomiting/Diarrhea Stated complaint: diarrhea, rectal pain Time Seen by Provider: 08/02/22 08:47 Source: patient, EMS, RN notes reviewed and old records reviewed Mode of arrival: EMS Limitations: no limitations History of Present Illness HPI Narrative: This is an 82 year old female who presents for evaluation of diarrhea. Patient was having issues with constipation 2 days ago. She was found to have fecal impaction on that visit. She states she was given an enema and in ER. She went home and started taking Miralax and Dulcolax. She also reports drinking prune juice. She states she has significant rectal pain from straining to have bowel movement. She reports she is passing some liquid stool around formed stool. She reports nausea but no vomiting. Related Data Home Medications Medication Instructions Recorded Confirmed omeprazole 20 mg capsule,delayed 20 mg PO DAILY 04/20/19 03/01/22 release levothyroxine 100 mcg tablet 125 mcg PO DAILY 04/22/19 03/01/22 metoprolol succinate 25 mg 50 mg PO DAILY 04/22/19 03/01/22 tablet,extended release 24 hr aspirin 227 mg-acetaminophen 194 1 tablet PO ONCE 11/30/19 03/01/22 mg-caffeine 33 mg tablet pravastatin 10 mg tablet 10 mg PO DAILY 06/17/20 03/01/22 pregabalin 100 mg capsule (Lyrica) 100 mg PO DAILY 06/17/20 03/01/22 vibegron 75 mg tablet (Gemtesa) 75 mg PO DAILY 10/31/21 03/01/22 chlorhexidine gluconate 0.12 % 08/02/22 mouthwash clotrimazole-betamethasone 1 applic topical 08/02/22 %-0.05 % topical cream conjugated estrogens 0.625 mg/gram 08/02/22 vaginal cream (Premarin) cyclosporine 0.09 % eye drops in a drp 08/02/22 dropperette (Cequa) ergocalciferol (vitamin D2) 1,250 08/02/22 mcg (50,000 unit) capsule levothyroxine 125 mcg tablet mcg 08/02/22 metoprolol succinate 50 mg mg PO 08/02/22 tablet,extended release 24 hr pravastatin 10 mg tablet mg 08/02/22 vibegron 75 mg tablet (Gemtesa) mg 08/02/22 Allergies Allergy/AdvReac Type Severity Reaction Status Date / Time atorvastatin Allergy Mild Muscle Pain Verified 07/31/22 09:31 ciprofloxacin Allergy Unknown Hives Verified 07/31/22 09:31 codeine Allergy Unknown UNKNOWN Verified 07/31/22 09:31 levofloxacin Allergy Unknown Rash Verified 07/31/22 09:31 nitrofurantoin Allergy Unknown ITCH AND Verified 07/31/22 09:31 DIZZY Penicillins Allergy Unknown UTI Verified 07/31/22 09:31 prednisone Allergy Unknown Hives / Verified 07/31/22 09:31 Red Face Sulfa (Sulfonamide Allergy Unknown Anaphylactic Verified 07/31/22 09:31 Antibiotics) Shock Contrast Media Allergy Unknown Hives and Uncoded 07/31/22 09:31 rash Review of Systems Constitutional: Constitutional: Denies weakness Cardiovascular: Cardiovascular: Denies syncope, Denies rapid heart rate, Denies irregular heart rhythm, Denies leg edema and Denies dyspnea Respiratory: Respiratory: Denies chest congestion, Denies hemoptysis, Denies excessive phlegm production and Denies dyspnea Gastrointestinal: Gastrointestinal: Reports abdominal pain, Denies hematochezia, Reports constipation, Reports diarrhea, Reports nausea and Denies vomiting Genitourinary: Genitourinary: Denies hematuria and Denies dysuria Musculoskeletal: Musculoskeletal: Denies joint swelling, Denies loss of height and Denies muscle weakness Neurologic: Denies syncope, Denies focal weakness and Denies weakness PMF Past Medical History Medical History Chronic atrial fibrillation Frequent urinary tract infections Hypersomnia Hypothyroidism Obesity (BMI 30-39.9) Obstructive sleep apnea Pulmonary hypertension Rhinitis Shortness of Breath Sleep-disordered breathing SOB (shortness of breath) Surgical History Surgical History History of hysterectomy Family History Family Hi
[2022-08-02 10:03] LABS: Appearance Urine Clear (Clear); Bilirubin Urine Negative (Negative); Blood Urine Negative (Negative); Color Urine Yellow (Yellow); Glucose Urine UA Negative (Negative); Ketones Urine Trace mg/dL (Negative); Leukocyte Esterase Ur Negative LEU/UL (Negative); Nitrate Urine Negative (Negative); Protein Urine Negative (Negative); Specific Grav Ur 1.004 (1.001-1.035)
[2022-08-02 10:04] LABS: Basophils Absolute Auto 0.1 K/mm3 (0.0-0.1); Basophils Percent Auto 0.8 % (0.2-1.2); Eosinophils Absolute Auto 0.1 K/mm3 (0-0.3); Eosinophils Percent Auto 1.1 % (0-4.4); Hematocrit 44.1 % (37.0-47.0); Hemoglobin 14.5 g/dL (12.0-15.0); Immature Granulocyte Absolute 0.01 K/mm3 (0.00-0.031); Immature Granulocyte Percent A 0.2 % (0-0.5); Lymphocytes Absolute Auto 1.46 K/mm3 (0.9-3.2); Lymphocytes Percent Auto 22.7 % (18.3-44.2); Mean Corpuscular HGB Conc 32.9 g/dl (32-36); Mean Corpuscular Hemoglobin 29.4 pg (26-34); Mean Corpuscular Volume 89.3 fl (80-100); Mean Platelet Volume 10.3 fl (7.4-10.4); Monocytes Absolute Auto 0.4 K/mm3 (0.1-0.6); Monocytes Percent Auto 6.2 % (2.6-8.5); Neutrophils Absolute Auto 4.5 K/mm3 (1.3-6.7); Platelet Count Result 230 k/mm3 (150-375); Red Blood Count 4.94 M/mm3 (4.2-5.4); Red Cell Distribution Width 13.6 % (11.5-14.5); White Blood Count 6.4 K/mm3 (4.5-10.0)
[2022-08-02 10:04] LABS: Add Urine Microscopic? NO
[2022-08-02 10:15] LABS: Alanine Aminotransferase 24 U/L (6-35); Albumin Level 4.3 g/dL (3.5-5.1); Alkaline Phosphatase 111 U/L (38-126); Anion Gap 2 mmol/L (8-16); Aspartate Amino Transferase 32 U/L (14-36); Bilirubin,Total 0.9 mg/dL (0.2-1.3); Blood Urea Nitrogen 14 mg/dL (7-17); Calcium 9.9 mg/dL (8.4-10.2); Carbon Dioxide 34 mmol/L (22-30); Chloride 102 mmol/L (98-107); Estimated CRCL calculation 87 ml/min; Estimated Glomerular Filt Rate > 60; Glucose 115 mg/dL (65-110); Lipase 43 U/L (23-300); Potassium 4.1 mmol/L (3.4-5.0); Sodium 138 mmol/L (137-145)
--- NOTE | 2022-08-02 11:12 | PC.NURSE ---
report received from Dahlia STEVENS
== END 2022-08-02 12:45 | disposition home or self-care (01) ==
PROVIDERS: Emergency Provider General Practice; PCP Family Medicine
DX: K59.00 Constipation, unspecified (principal); I48.20 Chronic atrial fibrillation, unspecified; E03.9 Hypothyroidism, unspecified; I27.20 Pulmonary hypertension, unspecified; G47.33 Obstructive sleep apnea (adult) (pediatric); E66.9 Obesity, unspecified; Z68.35 Body mass index [BMI] 35.0-35.9, adult; Z87.440 Personal history of urinary (tract) infections; Z90.710 Acquired absence of both cervix and uterus
CPT/HCPCS: 36415; 80053; 81003; 83690; 85025; 99283

== ENCOUNTER 2022-12-04 20:08 | Observation (INO) | payer MEDICARE, SELFPAY ==
--- NOTE | ~2022-12-04 | XR_ITS ---
EXAMINATION: XR knee LT 3V DATE: 12/04/2022 21:15 INDICATION: Left knee injury and pain. TECHNIQUE: 3 views of left knee were obtained. COMPARISON: None. FINDINGS: Bone alignment is normal. No fracture. There is mild tricompartmental osteoarthritis. No kn ee joint effusion. IMPRESSION: 1. Mild left knee osteoarthritis. Reviewed, dictated and finalized at location E.
[2022-12-04 20:23] VITALS: BP 138/72; PULSE 69; RESP 20; TEMP 36.8; O2SAT 100
--- NOTE | 2022-12-04 22:49 | ED.EXTPRO ---
HPI - Extremity Problem General Chief complaint: Extremity Problem,Nontraumatic Stated complaint: nontraumatic left knee pain Time Seen by Provider: 12/04/22 22:15 Source: patient Mode of arrival: EMS History of Present Illness HPI Narrative: This is an 82 year old who presents with pain in her left knee. Patient twisted her left leg at the knee while rising from seated position on the toilet. She has been unable to bear weight. Denies paresthesias. It is 10/10 in severity and radiates proximally up her back. She usually ambulates with 1 cane but had attempted to ambulate with 2. Not on anticoagulation. No history DM. No loss of consciousness. Denies syncope. She thinks she heard a click. She took 1 Aleve after it first happened at approximately 8pm. PCP [facility] at [facility] Related Data Home Medications Medication Instructions Recorded Confirmed omeprazole 20 mg capsule,delayed 20 mg PO DAILY 04/20/19 12/05/22 release pregabalin 100 mg capsule (Lyrica) 100 mg PO DAILY 06/17/20 12/05/22 clotrimazole-betamethasone 1 1 applic topical DAILY PRN Itching 08/02/22 12/05/22 %-0.05 % topical cream conjugated estrogens 0.625 mg/gram 1 applic vaginal WEEKLY 08/02/22 12/05/22 vaginal cream (Premarin) cyclosporine 0.09 % eye drops in a 1 drp EACH EYE BID 08/02/22 12/05/22 dropperette (Cequa) ergocalciferol (vitamin D2) 1,250 1,250 mcg PO WEEKLY 08/02/22 12/05/22 mcg (50,000 unit) capsule levothyroxine 125 mcg tablet 125 mcg PO DAILY 08/02/22 12/05/22 metoprolol succinate 50 mg 50 mg PO DAILY 08/02/22 12/05/22 tablet,extended release 24 hr pravastatin 10 mg tablet 10 mg PO DAILY 08/02/22 12/05/22 vibegron 75 mg tablet (Gemtesa) 75 mg PO DAILY 08/02/22 12/05/22 ipratropium bromide 21 mcg (0.03 1 - 2 spray intranasal DAILY 12/05/22 12/05/22 %) nasal spray Allergies Allergy/AdvReac Type Severity Reaction Status Date / Time atorvastatin Allergy Mild Muscle Pain Verified 12/04/22 23:42 ciprofloxacin Allergy Unknown Hives Verified 12/04/22 23:42 codeine Allergy Unknown UNKNOWN Verified 12/04/22 23:42 Iodinated Contrast Media Allergy Unknown HIVES AND Verified 12/05/22 11:11 RASH levofloxacin Allergy Unknown Rash Verified 12/04/22 23:42 nitrofurantoin Allergy Unknown ITCH AND Verified 12/04/22 23:42 DIZZY Penicillins Allergy Unknown UTI Verified 12/04/22 23:42 prednisone Allergy Unknown Hives / Verified 12/04/22 23:42 Red Face Sulfa (Sulfonamide Allergy Unknown Anaphylactic Verified 12/04/22 23:42 Antibiotics) Shock PMFSH Past Medical History Medical History Chronic atrial fibrillation Frequent urinary tract infections Hypersomnia Hypothyroidism Obesity (BMI 30-39.9) Obstructive sleep apnea Pulmonary hypertension Rhinitis Shortness of Breath Sleep-disordered breathing SOB (shortness of breath) Surgical History Surgical History History of hysterectomy Family History Family History Mother Carcinoma of colon Father Family history of emphysema, Onset Age: 60 Social History Social History Smoking status: Never smoker Second hand tobacco smoke exposure: No Alcohol intake: never Substance use: never Substance use type: does not use Lack of Transportation: No Lack of Food: Never True Current Housing: I Have Housing Concerned About Future Housing: No Difficulty Paying Gas/Electric Bills: No Difficulty Paying for Meds: No Currently Unemployed: No Education: Master's Degree or Higher Difficulty w/ Childcare or Family Care: No Living arrangements: with family Occupation/Education: retired Spiritual care concerns: No Exam Const: General: healthy appearing and alert; No confusion or diaphoretic Nutritional Appearance: well nourishe
[2022-12-04] MEDS: KETOROLAC 30 MG/ML VIAL (*BKC) 15 MG IM (22:59)
[2022-12-04] MEDS: ACETAMINOPHEN 500 MG TABLET 1000 MG PO (22:59)
--- NOTE | 2022-12-04 23:38 | PC.NURSE ---
Pt unable to use crutches, pt unable to stand due to pain, concerned about caring for self at home alone. Pt 2 person assisted to stretcher w/ difficulty. Pt had saturated pants, depends full of urine, changed depends, changed linen. Repositioned pt. Will update EDP on pt status.
[2022-12-04 23:39] VITALS: BP 155/89; PULSE 69; RESP 18; TEMP 36.4; O2SAT 97
[2022-12-05 02:07] VITALS: BP 130/90; PULSE 70; RESP 17; O2SAT 98
[2022-12-05 02:09] LABS: Appearance Urine Clear (Clear); Bilirubin Urine Negative (Negative); Blood Urine Negative (Negative); Color Urine Yellow (Yellow); Glucose Urine UA Negative (Negative); Ketones Urine Negative (Negative); Leukocyte Esterase Ur Negative LEU/UL (Negative); Nitrate Urine Negative (Negative); Protein Urine Negative (Negative); Specific Grav Ur 1.005 (1.001-1.035); pH Urine 7.5 (5.0-9.0)
[2022-12-05 02:15] LABS: Add Urine Microscopic? NO
[2022-12-05 03:05] VITALS: BP 184/90; PULSE 60; RESP 16; TEMP 36.3; O2SAT 98
[2022-12-05 03:37] VITALS: BMI 38.0
--- NOTE | 2022-12-05 03:50 | ADMGEN ---
This patient, Matilde Cloud, was admitted to [address] [place] [address] Room 307-01. Patient/family oriented to hospital policies and general routines including ID bracelet, bed and alarms, visiting hours, pain management, procedures, bathroom and other care routines, personal items, smoking policy, room service/diet, and visiting hours. Information on how to activate the Rapid Response Team has been discussed. Patient/Family are encouraged to report perceived risks to care and to ask questions if they do not understand what they are told or what they should do.
[2022-12-05 06:19] VITALS: BP 106/78; PULSE 72; RESP 18; TEMP 36.6; O2SAT 97
--- NOTE | 2022-12-05 09:22 | PM.IMHP ---
H&P: HPI History of Present Illness Date/Time: 12/05/22 09:22 Chief Complaint: Nontraumatic left knee pain Narrative: This is an 82-year-old with a significant past medical history of chronic atrial fibrillation, hypothyroidism, obesity, obstructive sleep apnea, pulmonary hypertension, peripheral neuropathy, frequent UTI, and history of hysterectomy who presented to the ER on 12/04/2022 for evaluation of left knee pain. Patient states that she was getting up from the toilet when she felt a pop and increased pain in her left knee. She states when she turned that her leg did not turn with her causing a twist injury to her left knee. Patient states that she pressed her medical alert button and EMS came and brought her to ER for further evaluation. Workup in the ER included a left knee x-ray which showed osteoarthritis, no fracture seen. Patient was reporting 10/10 pain and she was given a dose of IV Toradol and some Tylenol while in the ER. She was still unable to bear weight and since the patient lives alone she was admitted for possible rehab placement. On examination today patient reports medial and lateral left knee pain. No bruising, swelling, or erythema noted. She reports numbness and tingling in BLE due to her history of peripheral neuropathy. Labs were essentially unremarkable. Potassium 4.1, BUN 14, creatinine 0.6, sodium 141, UA was negative. PT and OT ordered for today. Will need to touch base with case management regarding placement after PT and OT recommendations. Review of Systems Constitutional: Constitutional: Reports as per HPI and Reports no additional constitutional complaints Eyes: Eyes: Reports as per HPI and Reports no additional eye complaints ENT: Reports system reviewed and no additional complaints, except as documented and Reports as per HPI Cardiovascular: Cardiovascular: Reports as per HPI and Reports no additional cardiovascular complaints Respiratory: Respiratory: Reports as per HPI and Reports no additional respiratory complaints Gastrointestinal: Gastrointestinal: Reports as per HPI and Reports no additional gastrointestinal complaints Genitourinary: Genitourinary: Reports no additional female genitourinary complaints and Reports as per HPI Musculoskeletal: Musculoskeletal: Reports no additional musculoskeletal complaints and Reports as per HPI Integumentary/Breasts: Skin/Breast: Reports system reviewed and no additional complaints, except as docu and Reports as per HPI Neurologic: Reports system reviewed and no additional complaints, except as documented and Reports as per HPI Psychiatric: Psychiatric: Reports no additional psychiatric complaints and Reports as per HPI [facility] Past Medical History Medical History Chronic atrial fibrillation Frequent urinary tract infections Hypersomnia Hypothyroidism Obesity (BMI 30-39.9) Obstructive sleep apnea Pulmonary hypertension Rhinitis Shortness of Breath Sleep-disordered breathing SOB (shortness of breath) Surgical History Surgical History History of hysterectomy Family History Family History Mother Carcinoma of colon Father Family history of emphysema, Onset Age: 60 Social History Social History Smoking status: Never smoker Second hand tobacco smoke exposure: No Alcohol intake: never Substance use: never Substance use type: does not use Lack of Transportation: No Lack of Food: Never True Current Housing: I Have Housing Concerned About Future Housing: No Difficulty Paying Gas/Electric Bills: No Difficulty Paying for Meds: No Currently Unemployed: No Education: Master's Degree or Higher Difficulty w/ Childcare or Family Care: No Living arrangements: with family Occupation/Educatio
[2022-12-05 09:47] LABS: Hematocrit 46.7 % (37.0-47.0); Hemoglobin 14.7 g/dL (12.0-15.0); Mean Corpuscular HGB Conc 31.5 g/dl (32-36); Mean Corpuscular Volume 92.1 fl (80-100); Platelet Count Result 220 k/mm3 (150-375); Red Blood Count 5.07 M/mm3 (4.2-5.4); Red Cell Distribution Width 14.2 % (11.5-14.5); White Blood Count 6.9 K/mm3 (4.5-10.0)
[2022-12-05 09:57] LABS: Anion Gap 3 mmol/L (8-16); Blood Urea Nitrogen 14 mg/dL (7-17); Calcium 9.8 mg/dL (8.4-10.2); Carbon Dioxide 30 mmol/L (22-30); Chloride 108 mmol/L (98-107); Estimated CRCL calculation 88 ml/min; Estimated Glomerular Filt Rate > 60; Glucose 123 mg/dL (65-110); Potassium 4.1 mmol/L (3.4-5.0); Sodium 141 mmol/L (137-145)
[2022-12-05] MEDS: ACETAMINOPHEN 325 MG TABLET 650 MG PO (10:04)
[2022-12-05 12:16] VITALS: PULSE 80
[2022-12-05] MEDS: PREGABALIN (*CRX) 50 MG CAPSULE 100 MG PO (12:16)
[2022-12-05] MEDS: METOPROLOL SUCCINATE EXT REL 50 MG TABCR PO (12:16)
[2022-12-05] MEDS: traMADol HCL (*CRX) 25 MG TABLET PO ×2 (12:17→21:37)
[2022-12-05] MEDS: cycloSPORINE 0.4 ML OPHTH SOLUTION 1 DROP EACH EYE ×2 (12:17→20:33)
[2022-12-05] MEDS: PRAVASTATIN SODIUM 10 MG TABLET PO (12:18)
[2022-12-05] MEDS: PANTOPRAZOLE 40 MG TABLET PO ×2 (12:18→20:33)
[2022-12-05] MEDS: TOLNAFTATE 1% POWDER 45 GM BTL 1 APPLIC TOPICAL ×2 (12:18→20:33)
[2022-12-05 13:32] VITALS: BP 122/49; PULSE 63; RESP 18; TEMP 36.6; O2SAT 97
--- NOTE | 2022-12-05 18:40 | PC.NURSE ---
Ruma Antonio provided care for this patient on 12/05/22. I agreed with her assessments and charting.
[2022-12-05 21:24] VITALS: BP 123/99; PULSE 66; RESP 16; TEMP 36.6; O2SAT 96
[2022-12-06] MEDS: traMADol HCL (*CRX) 25 MG TABLET PO ×3 (02:59→20:47)
[2022-12-06 06:00] VITALS: BP 142/54; PULSE 64; RESP 18; TEMP 35.9; O2SAT 96
[2022-12-06] MEDS: LEVOTHYROXINE SODIUM 125 MCG TABLET PO (06:25)
[2022-12-06 06:31] LABS: Basophils Absolute Auto 0.1 K/mm3 (0.0-0.1); Basophils Percent Auto 1.1 % (0.2-1.2); Eosinophils Absolute Auto 0.1 K/mm3 (0-0.3); Eosinophils Percent Auto 2.9 % (0-4.4); Hematocrit 43.1 % (37.0-47.0); Hemoglobin 13.6 g/dL (12.0-15.0); Immature Granulocyte Absolute 0.01 K/mm3 (0.00-0.031); Immature Granulocyte Percent A 0.2 % (0-0.5); Lymphocytes Absolute Auto 1.38 K/mm3 (0.9-3.2); Mean Corpuscular HGB Conc 31.6 g/dl (32-36); Mean Corpuscular Hemoglobin 29.2 pg (26-34); Mean Corpuscular Volume 92.5 fl (80-100); Mean Platelet Volume 10.2 fl (7.4-10.4); Monocytes Absolute Auto 0.3 K/mm3 (0.1-0.6); Monocytes Percent Auto 6.3 % (2.6-8.5); Neutrophils Absolute Auto 2.9 K/mm3 (1.3-6.7); Neutrophils Percent Auto 60.5 % (45.5-73.1); Platelet Count Result 196 k/mm3 (150-375); Red Blood Count 4.66 M/mm3 (4.2-5.4); Red Cell Distribution Width 14.2 % (11.5-14.5); White Blood Count 4.8 K/mm3 (4.5-10.0)
[2022-12-06 06:46] LABS: Anion Gap 8 mmol/L (8-16); Blood Urea Nitrogen 17 mg/dL (7-17); Calcium 9.2 mg/dL (8.4-10.2); Carbon Dioxide 24 mmol/L (22-30); Chloride 107 mmol/L (98-107); Estimated CRCL calculation 76 ml/min; Estimated Glomerular Filt Rate > 60; Glucose 131 mg/dL (65-110); Potassium 3.7 mmol/L (3.4-5.0); Sodium 139 mmol/L (137-145)
--- NOTE | 2022-12-06 09:21 | PM.IMPN ---
Progress Note: A&P Assessment and Plan (1) Knee meniscus pain: Qualifiers: Laterality: left Qualified Code(s): M25.562 - Pain in left knee Code(s): M25.569 - Pain in unspecified knee Status: Acute Assessment and Plan: 12/05/2022 Reports the medial and lateral pain to left knee status post twist injury, no swelling, no erythema, no bruising. X-ray of left knee shows osteoarthritis, no fracture Patient reports that she is unable to bear weight. PT and OT ordered for evaluation and treatment Consult with case coordination for rehab placement if she qualifies since she lives by herself. Tramadol 25 mg q.6 hour ordered for pain control Continue with rest, ice, compression, elevation. 12/06/22: Patient working with PT and OT, PT and OT recommending halfway facility Discussed patient with case coordination for halfway as she lives by herself. They are planning on sending referrals out today for rehab. Continue with pain medication as needed for pain control, tolerating Toradol q.6 hours, still reporting medial and lateral pain Continue with rest, ice, compression, elevation Weight-bearing as tolerated on left lower extremity (2) Chronic atrial fibrillation: Code(s): I48.20 - Chronic atrial fibrillation, unspecified Status: Acute Assessment and Plan: 12/05/22: Continue metoprolol 50 mg ER 12/06/22: No change to current treatment plan (3) Hypothyroidism: Code(s): E03.9 - Hypothyroidism, unspecified Status: Acute Assessment and Plan: 12/05/2022: Continue Synthroid 12/06/22: No change to current treatment plan (4) Obesity (BMI 30-39.9): Code(s): E66.9 - Obesity, unspecified Status: Acute Assessment and Plan: 12/05/22: 123.7 kg, BMI 38 Time Spent With Patient Time with patient: 25 - 35 minutes Subjective Date/time seen: 12/06/22 09:21 Interval history: 12/05/2022: This is an 82-year-old with a significant past medical history of chronic atrial fibrillation, hypothyroidism, obesity, obstructive sleep apnea, pulmonary hypertension, peripheral neuropathy, frequent UTI, and history of hysterectomy who presented to the ER on 12/04/2022 for evaluation of left knee pain.? Patient states that she was getting up from the toilet when she felt a pop and increased pain in her left knee.? She states when she turned that her leg did not turn with her causing a twist injury to her left knee.? Patient states that she pressed her medical alert button and EMS came and brought her to ER for further evaluation.? Workup in the ER included a left knee x-ray which showed osteoarthritis, no fracture seen.? Patient was reporting 10/10 pain and she was given a dose of IV Toradol and some Tylenol while in the ER.? She was still unable to bear weight and since the patient lives alone she was admitted for possible rehab placement. On examination today patient reports medial and lateral left knee pain. No bruising, swelling, or erythema noted. She reports numbness and tingling in BLE due to her history of peripheral neuropathy.? Labs were essentially unremarkable.? Potassium 4.1, BUN 14, creatinine 0.6, sodium 141, UA was negative.? PT and OT ordered for today. Will need to touch base with case management regarding placement after PT and OT recommendations. 12/06/22: Patient in good spirits today. She states that the Toradol is helping control her pain, she reports pain 1/10 in her left knee. She reports that her pain is both medial and lateral. No bruising or swelling noted on exam today. Labs today are essentially unremarkable, potassium 3.7. Patient worked with PT and OT yesterday and are recommending halfway facility as she was only able to ambulate about 5 ft. Case coordination following patient and will start sending out referrals for halfway today for possible discharge tomorrow. Patient has no new complaints and no new even
[2022-12-06] MEDS: PREGABALIN (*CRX) 50 MG CAPSULE 100 MG PO (10:21)
[2022-12-06] MEDS: PANTOPRAZOLE 40 MG TABLET PO ×2 (10:21→20:38)
[2022-12-06 10:22] VITALS: PULSE 80
[2022-12-06] MEDS: METOPROLOL SUCCINATE EXT REL 50 MG TABCR PO (10:22)
[2022-12-06] MEDS: ENOXAPARIN 40 MG/0.4 ML SYRINGE SUB-Q (10:24)
[2022-12-06] MEDS: cycloSPORINE 0.4 ML OPHTH SOLUTION 1 DROP EACH EYE ×2 (10:24→20:48)
[2022-12-06] MEDS: PRAVASTATIN SODIUM 10 MG TABLET PO (10:25)
[2022-12-06] MEDS: TOLNAFTATE 1% POWDER 45 GM BTL 1 APPLIC TOPICAL ×2 (10:28→20:43)
--- NOTE | 2022-12-06 13:18 | PHAR ---
PHARMACY VERIFIED HOME MED: *USE FROM HOME* Vibegron [Gemtesa] 75 mg tablet TAKE 1 TABLET BY MOUTH AT HS
[2022-12-06 14:00] VITALS: BP 134/56; PULSE 64; RESP 16; TEMP 36.1; O2SAT 99
[2022-12-06 21:21] VITALS: BP 148/63; PULSE 64; RESP 18; TEMP 36.6; O2SAT 99
[2022-12-07 04:45] VITALS: BP 151/47; PULSE 57; RESP 18; TEMP 36.2; O2SAT 94
[2022-12-07] MEDS: traMADol HCL (*CRX) 25 MG TABLET PO ×2 (05:57→18:23)
[2022-12-07] MEDS: LEVOTHYROXINE SODIUM 125 MCG TABLET PO (05:58)
[2022-12-07 08:15] VITALS: BP 147/67; PULSE 63; O2SAT 98
[2022-12-07] MEDS: PREGABALIN (*CRX) 50 MG CAPSULE 100 MG PO (08:16)
[2022-12-07] MEDS: PANTOPRAZOLE 40 MG TABLET PO ×2 (08:16→20:08)
[2022-12-07] MEDS: cycloSPORINE 0.4 ML OPHTH SOLUTION 1 DROP EACH EYE ×2 (08:16→20:07)
[2022-12-07 08:19] VITALS: PULSE 63
[2022-12-07] MEDS: METOPROLOL SUCCINATE EXT REL 50 MG TABCR PO (08:19)
[2022-12-07] MEDS: IPRATROPIUM NASAL SPRAY 0.03% 15 ML BOTTLE NASAL (08:20)
[2022-12-07] MEDS: TOLNAFTATE 1% POWDER 45 GM BTL 1 APPLIC TOPICAL ×2 (08:22→20:08)
[2022-12-07 14:00] VITALS: BP 131/49; PULSE 66; RESP 16; TEMP 36.4; O2SAT 97
--- NOTE | 2022-12-07 15:11 | P.PNIM_ITS ---
Progress Note: A&P Assessment and Plan (1) Knee meniscus pain: Qualifiers: Laterality: left Qualified Code(s): M25.562 - Pain in left knee Code(s): M25.569 - Pain in unspecified knee Status: Acute Assessment and Plan: 12/05/2022 * Reports the medial and lateral pain to left knee status post twist injury, no swelling, no erythema, no bruising. * X-ray of left knee shows osteoarthritis, no fracture * Patient reports that she is unable to bear weight. PT and OT ordered for evaluation and treatment * Consult with case coordination for rehab placement if she qualifies since she lives by herself. * Tramadol 25 mg q.6 hour ordered for pain control * Continue with rest, ice, compression, elevation. 12/06/22: * Patient working with PT and OT, PT and OT recommending prison facility * Discussed patient with case coordination for prison as she lives by herself. They are planning on sending referrals out today for rehab. * Continue with pain medication as needed for pain control, tolerating Toradol q.6 hours, still reporting medial and lateral pain * Continue with rest, ice, compression, elevation * Weight-bearing as tolerated on left lower extremity 12/07/22: * continue to work with PT and OT * awaiting insurance approval for prison rehab, plan for discharge tomorrow * control with Toradol q.6 hours * continue with rest, ice, compression, elevation * weight-bearing as tolerated (2) Chronic atrial fibrillation: Code(s): I48.20 - Chronic atrial fibrillation, unspecified Status: Acute Assessment and Plan: 12/05/22: * Continue metoprolol 50 mg ER 12/06/22: * No change to current treatment plan (3) Hypothyroidism: Code(s): E03.9 - Hypothyroidism, unspecified Status: Acute Assessment and Plan: 12/05/2022: * Continue Synthroid 12/06/22: * No change to current treatment plan (4) Obesity (BMI 30-39.9): Code(s): E66.9 - Obesity, unspecified Status: Acute Assessment and Plan: 12/05/22: * 123.7 kg, BMI 38 Time Spent With Patient Time with patient: 25 - 35 minutes Subjective Date/time seen: 12/07/22 15:11 Interval history: 12/05/2022: This is an 82-year-old with a significant past medical history of chronic atrial fibrillation, hypothyroidism, obesity, obstructive sleep apnea, pulmonary hyper tension, peripheral neuropathy, frequent UTI, and history of hysterectomy who presented to the ER on 12/04/2022 for evaluation of left knee pain.? Patient states that she was getting up from the toilet when she felt a pop and increased pain in her left knee.? She states when she turned that her leg did not turn with her causing a twist injury to her left knee.? Patient states that she pressed her medical alert button and EMS came and brought her to ER for further evaluation.? Workup in the ER included a left knee x-ray which showed osteoarthritis, no fracture seen.? Patient was reporting 10/10 pain and she was given a dose of IV Toradol and some Tylenol while in the ER.? She was still unable to bear weight and since the patient lives alone she was admitted for possible rehab placement. On examination today patient reports medial and lateral left knee pain. No bruising, swelling, or erythema noted. She reports numbness and tingling in BLE due to her history of peripheral neuropathy.? Labs were essentially unremarkable.? Potassium 4.1, BUN 14, creatinine 0.6, sodium 141, UA was negative.? PT and OT ordered for today. Will need to touch base with case management regarding placement after PT an
--- NOTE | 2022-12-07 15:11 | PM.IMPN ---
Progress Note: A&P Assessment and Plan (1) Knee meniscus pain: Qualifiers: Laterality: left Qualified Code(s): M25.562 - Pain in left knee Code(s): M25.569 - Pain in unspecified knee Status: Acute Assessment and Plan: 12/05/2022 Reports the medial and lateral pain to left knee status post twist injury, no swelling, no erythema, no bruising. X-ray of left knee shows osteoarthritis, no fracture Patient reports that she is unable to bear weight. PT and OT ordered for evaluation and treatment Consult with case coordination for rehab placement if she qualifies since she lives by herself. Tramadol 25 mg q.6 hour ordered for pain control Continue with rest, ice, compression, elevation. 12/06/22: Patient working with PT and OT, PT and OT recommending shelter facility Discussed patient with case coordination for shelter as she lives by herself. They are planning on sending referrals out today for rehab. Continue with pain medication as needed for pain control, tolerating Toradol q.6 hours, still reporting medial and lateral pain Continue with rest, ice, compression, elevation Weight-bearing as tolerated on left lower extremity 12/07/22: continue to work with PT and OT awaiting insurance approval for shelter rehab, plan for discharge tomorrow control with Toradol q.6 hours continue with rest, ice, compression, elevation weight-bearing as tolerated (2) Chronic atrial fibrillation: Code(s): I48.20 - Chronic atrial fibrillation, unspecified Status: Acute Assessment and Plan: 12/05/22: Continue metoprolol 50 mg ER 12/06/22: No change to current treatment plan (3) Hypothyroidism: Code(s): E03.9 - Hypothyroidism, unspecified Status: Acute Assessment and Plan: 12/05/2022: Continue Synthroid 12/06/22: No change to current treatment plan (4) Obesity (BMI 30-39.9): Code(s): E66.9 - Obesity, unspecified Status: Acute Assessment and Plan: 12/05/22: 123.7 kg, BMI 38 Time Spent With Patient Time with patient: 25 - 35 minutes Subjective Date/time seen: 12/07/22 15:11 Interval history: 12/05/2022: This is an 82-year-old with a significant past medical history of chronic atrial fibrillation, hypothyroidism, obesity, obstructive sleep apnea, pulmonary hypertension, peripheral neuropathy, frequent UTI, and history of hysterectomy who presented to the ER on 12/04/2022 for evaluation of left knee pain.? Patient states that she was getting up from the toilet when she felt a pop and increased pain in her left knee.? She states when she turned that her leg did not turn with her causing a twist injury to her left knee.? Patient states that she pressed her medical alert button and EMS came and brought her to ER for further evaluation.? Workup in the ER included a left knee x-ray which showed osteoarthritis, no fracture seen.? Patient was reporting 10/10 pain and she was given a dose of IV Toradol and some Tylenol while in the ER.? She was still unable to bear weight and since the patient lives alone she was admitted for possible rehab placement. On examination today patient reports medial and lateral left knee pain. No bruising, swelling, or erythema noted. She reports numbness and tingling in BLE due to her history of peripheral neuropathy.? Labs were essentially unremarkable.? Potassium 4.1, BUN 14, creatinine 0.6, sodium 141, UA was negative.? PT and OT ordered for today. Will need to touch base with case management regarding placement after PT and OT recommendations. 12/06/22: Patient in good spirits today. She states that the Toradol is helping control her pain, she reports pain 1/10 in her left knee. She reports that her pain is both medial and lateral. No bruising or swelling noted on exam today. Labs today are essentially unremarkable, potassium 3.7. Patient worked with PT and OT yesterday and are recommending
[2022-12-07 20:06] VITALS: BP 168/56; PULSE 64; RESP 18; TEMP 36.8; O2SAT 98
[2022-12-07] MEDS: PRAVASTATIN SODIUM 10 MG TABLET PO (20:08)
[2022-12-08 00:43] VITALS: BP 170/80; PULSE 63; RESP 18; O2SAT 94
[2022-12-08] MEDS: traMADol HCL (*CRX) 25 MG TABLET PO ×3 (03:45→20:29)
[2022-12-08 05:25] VITALS: BP 131/80; PULSE 67; RESP 16; TEMP 36.6; O2SAT 96
[2022-12-08] MEDS: LEVOTHYROXINE SODIUM 125 MCG TABLET PO (05:28)
[2022-12-08 08:00] VITALS: PULSE 67; RESP 16; O2SAT 96
--- NOTE | 2022-12-08 08:33 | PM.DS ---
DS: Admitting Diagnosis Admitting Diagnosis Knee meniscus pain chronic AFib hypothyroidism obesity DS: Discharge Diagnosis Discharge Diagnosis (1) Knee meniscus pain: Qualifiers: Laterality: left Qualified Code(s): M25.562 - Pain in left knee Code(s): M25.569 - Pain in unspecified knee Status: Acute (2) Chronic atrial fibrillation: Code(s): I48.20 - Chronic atrial fibrillation, unspecified Status: Acute (3) Hypothyroidism: Code(s): E03.9 - Hypothyroidism, unspecified Status: Acute (4) Obesity (BMI 30-39.9): Code(s): E66.9 - Obesity, unspecified Status: Acute DS: Summary Time Spent with Patient Time attestation: Total time spent providing and/or coordinating discharge services: Time spent: Greater than 30 minutes Exam Narrative: GENERAL: Well appearing, well developed female, in no acute distress. HEAD: Normocephalic, atraumatic. NECK: Supple. No adenopathy, trachea midline RESPIRATORY: Airway patent, respirations nonlabored. Clear to auscultation bilaterally, no adventitious lung sounds. CARDIOVASCULAR: Regular rate and rhythm without murmurs, rubs, or gallops.? Radial pulses 2+ and equal bilaterally. Remains on room air ABDOMINAL: Normoactive BS. Abdomen soft, nontender, nondistended. MUSCULOSKELETAL: Left lower extremity decreased range of motion otherwise moves all extremities. No swelling, effusion, bruising, erythema noted. SKIN: Warm, dry, normal color. No rashes. NEURO: A&O X3. Speech clear. PSYCHIATRIC: Appropriate mood and affect. Normal interaction. Discharge Plan Discharge Discharge Medications: New acetaminophen 500 mg capsule 1,000 mg PO Q6H PRN (Reason: pain) Qty: 30 0RF ibuprofen 200 mg capsule 600 mg PO Q6H PRN (Reason: pain) Qty: 48 0RF No Action pregabalin [Lyrica] 100 mg capsule 100 mg PO DAILY omeprazole 20 mg capsule,delayed release(DR/EC) 20 mg PO DAILY metoprolol succinate 50 mg tablet extended release 24 hr 50 mg PO DAILY pravastatin 10 mg tablet 10 mg PO DAILY Premarin 0.625 mg/gram cream 1 applic vaginal WEEKLY Rx Instructions: on saturday levothyroxine 125 mcg tablet 125 mcg PO DAILY clotrimazole-betamethasone 1-0.05 % cream 1 applic TOPICAL DAILY PRN (Reason: Itching) ergocalciferol (vitamin D2) 1,250 mcg (50,000 unit) capsule 1,250 mcg PO WEEKLY Cequa 0.09 % dropperette 1 drp EACH EYE BID Gemtesa 75 mg tablet 75 mg PO DAILY ipratropium bromide 21 mcg (0.03 %) spray,non-aerosol 1 - 2 spray intranasal DAILY Rx Instructions: administer into each nostril, aim back/up/out Date of admission: 12/05/22 01:26 Primary Care Provider: Octavio,Ramonita Costa Admitting Provider: Tracie Lopez Attending physician on admission: Tracie Lopez Condition: Stable Quality VTE Prophylaxis VTE prophylaxis: pharmacologic ordered
[2022-12-08] MEDS: PREGABALIN (*CRX) 50 MG CAPSULE 100 MG PO (09:13)
[2022-12-08] MEDS: cycloSPORINE 0.4 ML OPHTH SOLUTION 1 DROP EACH EYE ×2 (09:13→20:27)
[2022-12-08] MEDS: IPRATROPIUM NASAL SPRAY 0.03% 15 ML BOTTLE NASAL (09:14)
[2022-12-08] MEDS: METOPROLOL SUCCINATE EXT REL 50 MG TABCR PO (09:14)
[2022-12-08] MEDS: PANTOPRAZOLE 40 MG TABLET PO ×2 (09:14→20:28)
[2022-12-08] MEDS: TOLNAFTATE 1% POWDER 45 GM BTL 1 APPLIC TOPICAL ×2 (09:14→20:28)
[2022-12-08 14:00] VITALS: BP 150/59; PULSE 70; RESP 20; TEMP 36.4; O2SAT 94
--- NOTE | 2022-12-08 18:42 | P.PNIM_ITS ---
Progress Note: A&P Assessment and Plan (1) Knee meniscus pain: Qualifiers: Laterality: left Qualified Code(s): M25.562 - Pain in left knee Code(s): M25.569 - Pain in unspecified knee Status: Acute Assessment and Plan: 12/05/2022 * Reports the medial and lateral pain to left knee status post twist injury, no swelling, no erythema, no bruising. * X-ray of left knee shows osteoarthritis, no fracture * Patient reports that she is unable to bear weight. PT and OT ordered for evaluation and treatment * Consult with case coordination for rehab placement if she qualifies since she lives by herself. * Tramadol 25 mg q.6 hour ordered for pain control * Continue with rest, ice, compression, elevation. 12/06/22: * Patient working with PT and OT, PT and OT recommending nursing home facility * Discussed patient with case coordination for nursing home as she lives by herself. They are planning on sending referrals out today for rehab. * Continue with pain medication as needed for pain control, tolerating Toradol q.6 hours, still reporting medial and lateral pain * Continue with rest, ice, compression, elevation * Weight-bearing as tolerated on left lower extremity 12/07/22: * continue to work with PT and OT * awaiting insurance approval for nursing home rehab, plan for discharge tomorrow * control with Toradol q.6 hours * continue with rest, ice, compression, elevation * weight-bearing as tolerated 12/08/2022: * continue to work with PT and OT * case management still awaiting insurance approval for rehab * continue with rest, ice, compression, elevation * weight-bearing as tolerated * continue with pain control medications (2) Chronic atrial fibrillation: Code(s): I48.20 - Chronic atrial fibrillation, unspecified Status: Acute Assessment and Plan: 12/05/22: * Continue metoprolol 50 mg ER 12/06/22: * No change to current treatment plan (3) Hypothyroidism: Code(s): E03.9 - Hypothyroidism, unspecified Status: Acute Assessment and Plan: 12/05/2022: * Continue Synthroid 12/06/22: * No change to current treatment plan (4) Obesity (BMI 30-39.9): Code(s): E66.9 - Obesity, unspecified Status: Acute Assessment and Plan: 12/05/22: * 123.7 kg, BMI 38 Time Spent With Patient Time with patient: Greater than 35 minutes Subjective Date/time seen: 12/08/22 18:42 Interval history: 12/05/2022: This is an 82-year-old with a significant past medical history of chronic atrial fibrillation, hypothyroidism, obesity, obstructive sleep apnea, pulmonary hypertension, peripheral neuropathy, frequent UTI, and history of hysterectomy who presented to the ER on 12/04/2022 for evaluation of left knee pain.? Patient states that she was getting up from the toilet when she felt a pop and increased pain in her left knee.? She states when she turned that her leg did not turn with her causing a twist injury to her left knee.? Patient states that she pressed her medical alert button and EMS came and brought her to ER for further evaluation.? Workup in the ER included a left knee x-ray which showed osteoarthritis, no fracture seen.? Patient was reporting 10/10 pain and she was given a dose of IV Toradol and some Tylenol while in the ER.? She was still unable to bear weight and since the patient lives alone she was admitted for possible rehab placement. On examination today patient reports medial and lateral left knee pain. No bruising, swelling, or erythema noted. She reports numbness and tingl
--- NOTE | 2022-12-08 18:42 | PM.IMPN ---
Progress Note: A&P Assessment and Plan (1) Knee meniscus pain: Qualifiers: Laterality: left Qualified Code(s): M25.562 - Pain in left knee Code(s): M25.569 - Pain in unspecified knee Status: Acute Assessment and Plan: 12/05/2022 Reports the medial and lateral pain to left knee status post twist injury, no swelling, no erythema, no bruising. X-ray of left knee shows osteoarthritis, no fracture Patient reports that she is unable to bear weight. PT and OT ordered for evaluation and treatment Consult with case coordination for rehab placement if she qualifies since she lives by herself. Tramadol 25 mg q.6 hour ordered for pain control Continue with rest, ice, compression, elevation. 12/06/22: Patient working with PT and OT, PT and OT recommending alf facility Discussed patient with case coordination for alf as she lives by herself. They are planning on sending referrals out today for rehab. Continue with pain medication as needed for pain control, tolerating Toradol q.6 hours, still reporting medial and lateral pain Continue with rest, ice, compression, elevation Weight-bearing as tolerated on left lower extremity 12/07/22: continue to work with PT and OT awaiting insurance approval for alf rehab, plan for discharge tomorrow control with Toradol q.6 hours continue with rest, ice, compression, elevation weight-bearing as tolerated 12/08/2022: continue to work with PT and OT case management still awaiting insurance approval for rehab continue with rest, ice, compression, elevation weight-bearing as tolerated continue with pain control medications (2) Chronic atrial fibrillation: Code(s): I48.20 - Chronic atrial fibrillation, unspecified Status: Acute Assessment and Plan: 12/05/22: Continue metoprolol 50 mg ER 12/06/22: No change to current treatment plan (3) Hypothyroidism: Code(s): E03.9 - Hypothyroidism, unspecified Status: Acute Assessment and Plan: 12/05/2022: Continue Synthroid 12/06/22: No change to current treatment plan (4) Obesity (BMI 30-39.9): Code(s): E66.9 - Obesity, unspecified Status: Acute Assessment and Plan: 12/05/22: 123.7 kg, BMI 38 Time Spent With Patient Time with patient: Greater than 35 minutes Subjective Date/time seen: 12/08/22 18:42 Interval history: 12/05/2022: This is an 82-year-old with a significant past medical history of chronic atrial fibrillation, hypothyroidism, obesity, obstructive sleep apnea, pulmonary hypertension, peripheral neuropathy, frequent UTI, and history of hysterectomy who presented to the ER on 12/04/2022 for evaluation of left knee pain.? Patient states that she was getting up from the toilet when she felt a pop and increased pain in her left knee.? She states when she turned that her leg did not turn with her causing a twist injury to her left knee.? Patient states that she pressed her medical alert button and EMS came and brought her to ER for further evaluation.? Workup in the ER included a left knee x-ray which showed osteoarthritis, no fracture seen.? Patient was reporting 10/10 pain and she was given a dose of IV Toradol and some Tylenol while in the ER.? She was still unable to bear weight and since the patient lives alone she was admitted for possible rehab placement. On examination today patient reports medial and lateral left knee pain. No bruising, swelling, or erythema noted. She reports numbness and tingling in BLE due to her history of peripheral neuropathy.? Labs were essentially unremarkable.? Potassium 4.1, BUN 14, creatinine 0.6, sodium 141, UA was negative.? PT and OT ordered for today. Will need to touch base with case management regarding placement after PT and OT recommendations. 12/06/22: Patient in good spirits today. She states that the Toradol is helping control her pain, she reports pa
[2022-12-08 20:00] VITALS: PULSE 63; RESP 18; O2SAT 98
[2022-12-08] MEDS: PRAVASTATIN SODIUM 10 MG TABLET PO (20:27)
[2022-12-08 21:05] VITALS: BP 144/64; PULSE 63; RESP 18; TEMP 36.8; O2SAT 98
[2022-12-09] MEDS: traMADol HCL (*CRX) 25 MG TABLET PO ×2 (05:39→16:07)
[2022-12-09] MEDS: LEVOTHYROXINE SODIUM 125 MCG TABLET PO (05:39)
[2022-12-09 06:00] VITALS: BP 144/65; PULSE 68; RESP 20; TEMP 36.5; O2SAT 98
[2022-12-09 06:10] LABS: Hemoglobin 14.5 g/dL (12.0-15.0); Mean Corpuscular HGB Conc 32.2 g/dl (32-36); Mean Corpuscular Hemoglobin 29.2 pg (26-34); Mean Corpuscular Volume 90.7 fl (80-100); Mean Platelet Volume 9.8 fl (7.4-10.4); Platelet Count Result 215 k/mm3 (150-375); Red Blood Count 4.96 M/mm3 (4.2-5.4); Red Cell Distribution Width 13.8 % (11.5-14.5); White Blood Count 4.5 K/mm3 (4.5-10.0)
[2022-12-09 06:30] LABS: Anion Gap 5 mmol/L (8-16); Blood Urea Nitrogen 17 mg/dL (7-17); Calcium 9.5 mg/dL (8.4-10.2); Carbon Dioxide 29 mmol/L (22-30); Chloride 103 mmol/L (98-107); Estimated CRCL calculation 76 ml/min; Estimated Glomerular Filt Rate > 60; Glucose 123 mg/dL (65-110); Potassium 3.8 mmol/L (3.4-5.0); Sodium 137 mmol/L (137-145)
[2022-12-09 08:00] VITALS: O2SAT 98
[2022-12-09] MEDS: PANTOPRAZOLE 40 MG TABLET PO ×2 (08:02→20:36)
[2022-12-09] MEDS: PREGABALIN (*CRX) 50 MG CAPSULE 100 MG PO (08:03)
[2022-12-09] MEDS: cycloSPORINE 0.4 ML OPHTH SOLUTION 1 DROP EACH EYE ×2 (08:03→20:36)
[2022-12-09] MEDS: METOPROLOL SUCCINATE EXT REL 50 MG TABCR PO (08:03)
[2022-12-09] MEDS: TOLNAFTATE 1% POWDER 45 GM BTL 1 APPLIC TOPICAL ×2 (08:04→20:36)
[2022-12-09] MEDS: IPRATROPIUM NASAL SPRAY 0.03% 15 ML BOTTLE NASAL (08:04)
--- NOTE | 2022-12-09 10:36 | P.PNIM_ITS ---
Progress Note: A&P Assessment and Plan (1) Knee meniscus pain: Qualifiers: Laterality: left Qualified Code(s): M25.562 - Pain in left knee Code(s): M25.569 - Pain in unspecified knee Status: Acute Assessment and Plan: 12/05/2022 * Reports the medial and lateral pain to left knee status post twist injury, no swelling, no erythema, no bruising. * X-ray of left knee shows osteoarthritis, no fracture * Patient reports that she is unable to bear weight. PT and OT ordered for evaluation and treatment * Consult with case coordination for rehab placement if she qualifies since she lives by herself. * Tramadol 25 mg q.6 hour ordered for pain control * Continue with rest, ice, compression, elevation. 12/06/22: * Patient working with PT and OT, PT and OT recommending nursing home facility * Discussed patient with case coordination for nursing home as she lives by herself. They are planning on sending referrals out today for rehab. * Continue with pain medication as needed for pain control, tolerating Toradol q.6 hours, still reporting medial and lateral pain * Continue with rest, ice, compression, elevation * Weight-bearing as tolerated on left lower extremity 12/07/22: * continue to work with PT and OT * awaiting insurance approval for nursing home rehab, plan for discharge tomorrow * control with Toradol q.6 hours * continue with rest, ice, compression, elevation * weight-bearing as tolerated 12/08/2022: * continue to work with PT and OT * case management still awaiting insurance approval for rehab * continue with rest, ice, compression, elevation * weight-bearing as tolerated * continue with pain control medications 12/09/22: * Case management still awaiting insurance approval for rehab * no change to previous treatment plan (2) Chronic atrial fibrillation: Code(s): I48.20 - Chronic atrial fibrillation, unspecified Status: Acute Assessment and Plan: 12/05/22: * Continue metoprolol 50 mg ER 12/06/22: * No change to current treatment plan (3) Hypothyroidism: Code(s): E03.9 - Hypothyroidism, unspecified Status: Acute Assessment and Plan: 12/05/2022: * Continue Synthroid 12/06/22: * No change to current treatment plan (4) Obesity (BMI 30-39.9): Code(s): E66.9 - Obesity, unspecified Status: Acute Assessment and Plan: 12/05/22: * 123.7 kg, BMI 38 Time Spent With Patient Time with patient: 25 - 35 minutes Subjective Date/time seen: 12/09/22 10:36 Interval history: 12/05/2022: This is an 82-year-old with a significant past medical history of chronic atrial fibrillation, hypothyroidism, obesity, obstructive sleep apnea, pulmonary hypertension, peripheral neuropathy, frequent UTI, and history of hysterectomy who presented to the ER on 12/04/2022 for evaluation of left knee pain.? Patient states that she was getting up from the toilet when she felt a pop and increased pain in her left knee.? She states when she turned that her leg did not turn with her causing a twist injury to her left knee.? Patient states that she pressed her medical alert button and EMS came and brought her to ER for further evaluation.? Workup in the ER included a left knee x-ray which showed osteoarthritis, no fracture seen.? Patient was reporting 10/10 pain and she was given a dose of IV Toradol and some Tylenol while in the ER.? She was still unable to bear weight and since the patient lives alone she was admitted for possible rehab placement. On examination today nicki
--- NOTE | 2022-12-09 10:36 | PM.IMPN ---
Progress Note: A&P Assessment and Plan (1) Knee meniscus pain: Qualifiers: Laterality: left Qualified Code(s): M25.562 - Pain in left knee Code(s): M25.569 - Pain in unspecified knee Status: Acute Assessment and Plan: 12/05/2022 Reports the medial and lateral pain to left knee status post twist injury, no swelling, no erythema, no bruising. X-ray of left knee shows osteoarthritis, no fracture Patient reports that she is unable to bear weight. PT and OT ordered for evaluation and treatment Consult with case coordination for rehab placement if she qualifies since she lives by herself. Tramadol 25 mg q.6 hour ordered for pain control Continue with rest, ice, compression, elevation. 12/06/22: Patient working with PT and OT, PT and OT recommending assisted facility Discussed patient with case coordination for assisted as she lives by herself. They are planning on sending referrals out today for rehab. Continue with pain medication as needed for pain control, tolerating Toradol q.6 hours, still reporting medial and lateral pain Continue with rest, ice, compression, elevation Weight-bearing as tolerated on left lower extremity 12/07/22: continue to work with PT and OT awaiting insurance approval for assisted rehab, plan for discharge tomorrow control with Toradol q.6 hours continue with rest, ice, compression, elevation weight-bearing as tolerated 12/08/2022: continue to work with PT and OT case management still awaiting insurance approval for rehab continue with rest, ice, compression, elevation weight-bearing as tolerated continue with pain control medications 12/09/22: Case management still awaiting insurance approval for rehab no change to previous treatment plan (2) Chronic atrial fibrillation: Code(s): I48.20 - Chronic atrial fibrillation, unspecified Status: Acute Assessment and Plan: 12/05/22: Continue metoprolol 50 mg ER 12/06/22: No change to current treatment plan (3) Hypothyroidism: Code(s): E03.9 - Hypothyroidism, unspecified Status: Acute Assessment and Plan: 12/05/2022: Continue Synthroid 12/06/22: No change to current treatment plan (4) Obesity (BMI 30-39.9): Code(s): E66.9 - Obesity, unspecified Status: Acute Assessment and Plan: 12/05/22: 123.7 kg, BMI 38 Time Spent With Patient Time with patient: 25 - 35 minutes Subjective Date/time seen: 12/09/22 10:36 Interval history: 12/05/2022: This is an 82-year-old with a significant past medical history of chronic atrial fibrillation, hypothyroidism, obesity, obstructive sleep apnea, pulmonary hypertension, peripheral neuropathy, frequent UTI, and history of hysterectomy who presented to the ER on 12/04/2022 for evaluation of left knee pain.? Patient states that she was getting up from the toilet when she felt a pop and increased pain in her left knee.? She states when she turned that her leg did not turn with her causing a twist injury to her left knee.? Patient states that she pressed her medical alert button and EMS came and brought her to ER for further evaluation.? Workup in the ER included a left knee x-ray which showed osteoarthritis, no fracture seen.? Patient was reporting 10/10 pain and she was given a dose of IV Toradol and some Tylenol while in the ER.? She was still unable to bear weight and since the patient lives alone she was admitted for possible rehab placement. On examination today patient reports medial and lateral left knee pain. No bruising, swelling, or erythema noted. She reports numbness and tingling in BLE due to her history of peripheral neuropathy.? Labs were essentially unremarkable.? Potassium 4.1, BUN 14, creatinine 0.6, sodium 141, UA was negative.? PT and OT ordered for today. Will need to touch base with case management regarding placement after PT and OT recommendations. 12/06
[2022-12-09 14:00] VITALS: BP 130/62; PULSE 69; RESP 20; TEMP 36.3; O2SAT 94
[2022-12-09 20:00] VITALS: PULSE 65; RESP 16; O2SAT 95
[2022-12-09] MEDS: PRAVASTATIN SODIUM 10 MG TABLET PO (20:36)
[2022-12-09 22:00] VITALS: BP 145/56; PULSE 65; RESP 16; TEMP 36.3; O2SAT 95
[2022-12-10] MEDS: traMADol HCL (*CRX) 25 MG TABLET PO ×2 (02:46→17:01)
[2022-12-10 05:42] VITALS: BP 131/70; PULSE 63; RESP 16; TEMP 36.5; O2SAT 97
[2022-12-10] MEDS: LEVOTHYROXINE SODIUM 125 MCG TABLET PO (06:13)
[2022-12-10 08:00] VITALS: PULSE 66; RESP 17; O2SAT 96
[2022-12-10] MEDS: METOPROLOL SUCCINATE EXT REL 50 MG TABCR PO (09:50)
[2022-12-10] MEDS: PREGABALIN (*CRX) 50 MG CAPSULE 100 MG PO (09:50)
[2022-12-10] MEDS: PANTOPRAZOLE 40 MG TABLET PO ×2 (09:51→20:05)
[2022-12-10] MEDS: cycloSPORINE 0.4 ML OPHTH SOLUTION 1 DROP EACH EYE ×2 (09:51→20:05)
[2022-12-10] MEDS: IPRATROPIUM NASAL SPRAY 0.03% 15 ML BOTTLE NASAL (09:51)
--- NOTE | 2022-12-10 13:43 | P.PNIM_ITS ---
Progress Note: A&P Assessment and Plan (1) Knee meniscus pain: Qualifiers: Laterality: left Qualified Code(s): M25.562 - Pain in left knee Code(s): M25.569 - Pain in unspecified knee Status: Acute Assessment and Plan: 12/05/2022 * Reports the medial and lateral pain to left knee status post twist injury, no swelling, no erythema, no bruising. * X-ray of left knee shows osteoarthritis, no fracture * Patient reports that she is unable to bear weight. PT and OT ordered for evaluation and treatment * Consult with case coordination for rehab placement if she qualifies since she lives by herself. * Tramadol 25 mg q.6 hour ordered for pain control * Continue with rest, ice, compression, elevation. 12/06/22: * Patient working with PT and OT, PT and OT recommending correction facility * Discussed patient with case coordination for correction as she lives by herself. They are planning on sending referrals out today for rehab. * Continue with pain medication as needed for pain control, tolerating Toradol q.6 hours, still reporting medial and lateral pain * Continue with rest, ice, compression, elevation * Weight-bearing as tolerated on left lower extremity 12/07/22: * continue to work with PT and OT * awaiting insurance approval for correction rehab, plan for discharge tomorrow * control with Toradol q.6 hours * continue with rest, ice, compression, elevation * weight-bearing as tolerated 12/08/2022: * continue to work with PT and OT * case management still awaiting insurance approval for rehab * continue with rest, ice, compression, elevation * weight-bearing as tolerated * continue with pain control medications 12/10/22: * no change to current treatment plan * Awaiting insurance approval to [facility] rehab (2) Chronic atrial fibrillation: Code(s): I48.20 - Chronic atrial fibrillation, unspecified Status: Acute Assessment and Plan: 12/05/22: * Continue metoprolol 50 mg ER 12/06/22: * No change to current treatment plan (3) Hypothyroidism: Code(s): E03.9 - Hypothyroidism, unspecified Status: Acute Assessment and Plan: 12/05/2022: * Continue Synthroid 12/06/22: * No change to current treatment plan (4) Obesity (BMI 30-39.9): Code(s): E66.9 - Obesity, unspecified Status: Acute Assessment and Plan: 12/05/22: * 123.7 kg, BMI 38 Time Spent With Patient Time with patient: 15 - 25 minutes Subjective Date/time seen: 12/10/22 13:43 Interval history: 12/05/2022: This is an 82-year-old with a significant past medical history of chronic atrial fibrillation, hypothyroidism, obesity, obstructive sleep apnea, pulmonary hypertension, peripheral neuropathy, frequent UTI, and history of hysterectomy who presented to the ER on 12/04/2022 for evaluation of left knee pain.? Patient states that she was getting up from the toilet when she felt a pop and increased pain in her left knee.? She states when she turned that her leg did not turn with her causing a twist injury to her left knee.? Patient states that she pressed her medical alert button and EMS came and brought her to ER for further evaluation.? Workup in the ER included a left knee x-ray which showed osteoarthritis, no fracture seen.? Patient was reporting 10/10 pain and she was given a dose of IV Toradol and some Tylenol while in the ER.? She was still unable to bear weight and since the patient lives alone she was admitted for possible rehab placement. On examination today patient reports medial
--- NOTE | 2022-12-10 13:43 | PM.IMPN ---
Progress Note: A&P Assessment and Plan (1) Knee meniscus pain: Qualifiers: Laterality: left Qualified Code(s): M25.562 - Pain in left knee Code(s): M25.569 - Pain in unspecified knee Status: Acute Assessment and Plan: 12/05/2022 Reports the medial and lateral pain to left knee status post twist injury, no swelling, no erythema, no bruising. X-ray of left knee shows osteoarthritis, no fracture Patient reports that she is unable to bear weight. PT and OT ordered for evaluation and treatment Consult with case coordination for rehab placement if she qualifies since she lives by herself. Tramadol 25 mg q.6 hour ordered for pain control Continue with rest, ice, compression, elevation. 12/06/22: Patient working with PT and OT, PT and OT recommending halfway facility Discussed patient with case coordination for halfway as she lives by herself. They are planning on sending referrals out today for rehab. Continue with pain medication as needed for pain control, tolerating Toradol q.6 hours, still reporting medial and lateral pain Continue with rest, ice, compression, elevation Weight-bearing as tolerated on left lower extremity 12/07/22: continue to work with PT and OT awaiting insurance approval for halfway rehab, plan for discharge tomorrow control with Toradol q.6 hours continue with rest, ice, compression, elevation weight-bearing as tolerated 12/08/2022: continue to work with PT and OT case management still awaiting insurance approval for rehab continue with rest, ice, compression, elevation weight-bearing as tolerated continue with pain control medications 12/10/22: no change to current treatment plan Awaiting insurance approval to [facility] rehab (2) Chronic atrial fibrillation: Code(s): I48.20 - Chronic atrial fibrillation, unspecified Status: Acute Assessment and Plan: 12/05/22: Continue metoprolol 50 mg ER 12/06/22: No change to current treatment plan (3) Hypothyroidism: Code(s): E03.9 - Hypothyroidism, unspecified Status: Acute Assessment and Plan: 12/05/2022: Continue Synthroid 12/06/22: No change to current treatment plan (4) Obesity (BMI 30-39.9): Code(s): E66.9 - Obesity, unspecified Status: Acute Assessment and Plan: 12/05/22: 123.7 kg, BMI 38 Time Spent With Patient Time with patient: 15 - 25 minutes Subjective Date/time seen: 12/10/22 13:43 Interval history: 12/05/2022: This is an 82-year-old with a significant past medical history of chronic atrial fibrillation, hypothyroidism, obesity, obstructive sleep apnea, pulmonary hypertension, peripheral neuropathy, frequent UTI, and history of hysterectomy who presented to the ER on 12/04/2022 for evaluation of left knee pain.? Patient states that she was getting up from the toilet when she felt a pop and increased pain in her left knee.? She states when she turned that her leg did not turn with her causing a twist injury to her left knee.? Patient states that she pressed her medical alert button and EMS came and brought her to ER for further evaluation.? Workup in the ER included a left knee x-ray which showed osteoarthritis, no fracture seen.? Patient was reporting 10/10 pain and she was given a dose of IV Toradol and some Tylenol while in the ER.? She was still unable to bear weight and since the patient lives alone she was admitted for possible rehab placement. On examination today patient reports medial and lateral left knee pain. No bruising, swelling, or erythema noted. She reports numbness and tingling in BLE due to her history of peripheral neuropathy.? Labs were essentially unremarkable.? Potassium 4.1, BUN 14, creatinine 0.6, sodium 141, UA was negative.? PT and OT ordered for today. Will need to touch base with case management regarding placement after PT and OT recommendations. 12/06/22: Patient in g
[2022-12-10 14:00] VITALS: BP 135/58; PULSE 66; RESP 17; TEMP 36.2; O2SAT 96
[2022-12-10] MEDS: TOLNAFTATE 1% POWDER 45 GM BTL 1 APPLIC TOPICAL ×2 (17:01→20:08)
[2022-12-10] MEDS: PRAVASTATIN SODIUM 10 MG TABLET PO (20:05)
[2022-12-10 22:00] VITALS: BP 152/50; PULSE 60; RESP 16; TEMP 36.4; O2SAT 98
[2022-12-11] MEDS: traMADol HCL (*CRX) 25 MG TABLET PO (05:06)
[2022-12-11] MEDS: LEVOTHYROXINE SODIUM 125 MCG TABLET PO (05:58)
[2022-12-11 06:00] VITALS: BP 138/59; PULSE 60; RESP 14; TEMP 36.4; O2SAT 95
[2022-12-11] MEDS: cycloSPORINE 0.4 ML OPHTH SOLUTION 1 DROP EACH EYE (09:21)
[2022-12-11] MEDS: IPRATROPIUM NASAL SPRAY 0.03% 15 ML BOTTLE NASAL (09:21)
[2022-12-11] MEDS: PREGABALIN (*CRX) 50 MG CAPSULE 100 MG PO (09:22)
[2022-12-11] MEDS: ENOXAPARIN 40 MG/0.4 ML SYRINGE SUB-Q (09:22)
[2022-12-11 09:23] VITALS: PULSE 74
[2022-12-11] MEDS: METOPROLOL SUCCINATE EXT REL 50 MG TABCR PO (09:23)
[2022-12-11] MEDS: PANTOPRAZOLE 40 MG TABLET PO (09:24)
[2022-12-11] MEDS: TOLNAFTATE 1% POWDER 45 GM BTL 1 APPLIC TOPICAL (09:27)
--- NOTE | 2022-12-11 09:32 | P.PNIM_ITS ---
Progress Note: A&P Assessment and Plan (1) Knee meniscus pain: Qualifiers: Laterality: left Qualified Code(s): M25.562 - Pain in left knee Code(s): M25.569 - Pain in unspecified knee Status: Acute Assessment and Plan: 12/05/2022 * Reports the medial and lateral pain to left knee status post twist injury, no swelling, no erythema, no bruising. * X-ray of left knee shows osteoarthritis, no fracture * Patient reports that she is unable to bear weight. PT and OT ordered for evaluation and treatment * Consult with case coordination for rehab placement if she qualifies since she lives by herself. * Tramadol 25 mg q.6 hour ordered for pain control * Continue with rest, ice, compression, elevation. 12/06/22: * Patient working with PT and OT, PT and OT recommending residential facility * Discussed patient with case coordination for residential as she lives by herself. They are planning on sending referrals out today for rehab. * Continue with pain medication as needed for pain control, tolerating Toradol q.6 hours, still reporting medial and lateral pain * Continue with rest, ice, compression, elevation * Weight-bearing as tolerated on left lower extremity 12/07/22: * continue to work with PT and OT * awaiting insurance approval for residential rehab, plan for discharge tomorrow * control with Toradol q.6 hours * continue with rest, ice, compression, elevation * weight-bearing as tolerated 12/08/2022: * continue to work with PT and OT * case management still awaiting insurance approval for rehab * continue with rest, ice, compression, elevation * weight-bearing as tolerated * continue with pain control medications 12/10/22: * no change to current treatment plan * Awaiting insurance approval to [facility] rehab 12/11/22: * no change to current treatment plan (2) Chronic atrial fibrillation: Code(s): I48.20 - Chronic atrial fibrillation, unspecified Status: Acute Assessment and Plan: 12/05/22: * Continue metoprolol 50 mg ER 12/06/22: * No change to current treatment plan (3) Hypothyroidism: Code(s): E03.9 - Hypothyroidism, unspecified Status: Acute Assessment and Plan: 12/05/2022: * Continue Synthroid 12/06/22: * No change to current treatment plan (4) Obesity (BMI 30-39.9): Code(s): E66.9 - Obesity, unspecified Status: Acute Assessment and Plan: 12/05/22: * 123.7 kg, BMI 38 Time Spent With Patient Time with patient: 15 - 25 minutes Subjective Date/time seen: 12/11/22 09:32 Interval history: 12/05/2022: This is an 82-year-old with a significant past medical history of chronic atrial fibrillation, hypothyroidism, obesity, obstructive sleep apnea, pulmonary hypertension, peripheral neuropathy, frequent UTI, and history of hysterectomy who presented to the ER on 12/04/2022 for evaluation of left knee pain.? Patient states that she was getting up from the toilet when she felt a pop and increased pain in her left knee.? She states when she turned that her leg did not turn with her causing a twist injury to her left knee.? Patient states that she pressed her medical alert button and EMS came and brought her to ER for further evaluation.? Workup in the ER included a left knee x-ray which showed osteoarthritis, no fracture seen.? Patient was reporting 10/10 pain and she was given a dose of IV Toradol and some Tylenol while in the ER.? She was still unable to bear weight and since the patient lives alone she was admitted for
--- NOTE | 2022-12-11 09:32 | PM.IMPN ---
Progress Note: A&P Assessment and Plan (1) Knee meniscus pain: Qualifiers: Laterality: left Qualified Code(s): M25.562 - Pain in left knee Code(s): M25.569 - Pain in unspecified knee Status: Acute Assessment and Plan: 12/05/2022 Reports the medial and lateral pain to left knee status post twist injury, no swelling, no erythema, no bruising. X-ray of left knee shows osteoarthritis, no fracture Patient reports that she is unable to bear weight. PT and OT ordered for evaluation and treatment Consult with case coordination for rehab placement if she qualifies since she lives by herself. Tramadol 25 mg q.6 hour ordered for pain control Continue with rest, ice, compression, elevation. 12/06/22: Patient working with PT and OT, PT and OT [facility] Discussed patient with case coordination for [facility] as she lives by herself. They are planning on sending referrals out today for rehab. Continue with pain medication as needed for pain control, tolerating Toradol q.6 hours, still reporting medial and lateral pain Continue with rest, ice, compression, elevation Weight-bearing as tolerated on left lower extremity 12/07/22: continue to work with PT and OT awaiting insurance approval for [facility] rehab, plan for discharge tomorrow control with Toradol q.6 hours continue with rest, ice, compression, elevation weight-bearing as tolerated 12/08/2022: continue to work with PT and OT case management still awaiting insurance approval for rehab continue with rest, ice, compression, elevation weight-bearing as tolerated continue with pain control medications 12/10/22: no change to current treatment plan Awaiting insurance approval to [facility] rehab 12/11/22: no change to current treatment plan (2) Chronic atrial fibrillation: Code(s): I48.20 - Chronic atrial fibrillation, unspecified Status: Acute Assessment and Plan: 12/05/22: Continue metoprolol 50 mg ER 12/06/22: No change to current treatment plan (3) Hypothyroidism: Code(s): E03.9 - Hypothyroidism, unspecified Status: Acute Assessment and Plan: 12/05/2022: Continue Synthroid 12/06/22: No change to current treatment plan (4) Obesity (BMI 30-39.9): Code(s): E66.9 - Obesity, unspecified Status: Acute Assessment and Plan: 12/05/22: 123.7 kg, BMI 38 Time Spent With Patient Time with patient: 15 - 25 minutes Subjective Date/time seen: 12/11/22 09:32 Interval history: 12/05/2022: This is an 82-year-old with a significant past medical history of chronic atrial fibrillation, hypothyroidism, obesity, obstructive sleep apnea, pulmonary hypertension, peripheral neuropathy, frequent UTI, and history of hysterectomy who presented to the ER on 12/04/2022 for evaluation of left knee pain.? Patient states that she was getting up from the toilet when she felt a pop and increased pain in her left knee.? She states when she turned that her leg did not turn with her causing a twist injury to her left knee.? Patient states that she pressed her medical alert button and EMS came and brought her to ER for further evaluation.? Workup in the ER included a left knee x-ray which showed osteoarthritis, no fracture seen.? Patient was reporting 10/10 pain and she was given a dose of IV Toradol and some Tylenol while in the ER.? She was still unable to bear weight and since the patient lives alone she was admitted for possible rehab placement. On examination today patient reports medial and lateral left knee pain. No bruising, swelling, or erythema noted. She reports numbness and tingling in BLE due to her history of peripheral neuropathy.? Labs were essentially unremarkable.? Potassium 4.1, BUN 14, creatinine 0.6, sodium 141, UA was negative.? PT and OT ordered for today. Will need to touch base with case management regarding placement after
--- NOTE | 2022-12-11 10:00 | PCNWS ---
Weekly nutritional screen. Patient is tolerating current diet with adequate intake. No weight loss reported. No nutritional needs at this time.
--- NOTE | 2022-12-11 10:48 | PM.DS ---
DS: Admitting Diagnosis Discharge Date 12/11/22 Admitting Diagnosis Left knee meniscus pain chronic AFib hypothyroidism obesity DS: Discharge Diagnosis Discharge Diagnosis (1) Knee meniscus pain: Qualifiers: Laterality: left Qualified Code(s): M25.562 - Pain in left knee Code(s): M25.569 - Pain in unspecified knee Status: Acute (2) Chronic atrial fibrillation: Code(s): I48.20 - Chronic atrial fibrillation, unspecified Status: Acute (3) Hypothyroidism: Code(s): E03.9 - Hypothyroidism, unspecified Status: Acute (4) Obesity (BMI 30-39.9): Code(s): E66.9 - Obesity, unspecified Status: Acute DS: Summary Hospital Course Hospital Course: This is an 82 year old female who presented to the hospital on 12/04/2022 with complaints of left knee pain. Patient states she was getting up from the toilet when she felt a pop increased pain in her left knee. She lives alone And unable to care for herself home. She came here for rehab placement. Patient is going to her [facility] and she has waited insurance approval for number of days in the hospital. Workup in the hospital included a knee x-ray which showed osteoarthritis and no fracture was seen. PT and OT were ordered and worked with patient daily. On examination today patient was able to ambulate in the wallace with her walker to the nurse's station and back to her room without much pain. Her vital signs are stable, she is afebrile, she remains on room air. Her labs the entire admission have been essentially normal and none were repeated today. Patient has no new complaints today. Her pain is under control. She is stable for discharge.+ Status at Discharge Cognitive/behavioral status at discharge: Alert and oriented x4 Functional status at discharge: uses cane/walker Overall status at discharge: patient is progressing back to baseline Time Spent with Patient Time attestation: Total time spent providing and/or coordinating discharge services: Exam Narrative: GENERAL: Well appearing, well developed female, in no acute distress. HEAD: Normocephalic, atraumatic. NECK: Supple. No adenopathy, trachea midline RESPIRATORY: Airway patent, respirations nonlabored. Clear to auscultation bilaterally, no adventitious lung sounds. CARDIOVASCULAR: Regular rate and rhythm without murmurs, rubs, or gallops.? Radial pulses 2+ and equal bilaterally.? Remains on room air ABDOMINAL: Normoactive BS. Abdomen soft, nontender, nondistended. MUSCULOSKELETAL:? Left lower extremity decreased range of motion otherwise moves all extremities.? No swelling, effusion, bruising, erythema noted. SKIN: Warm, dry, normal color. No rashes. NEURO: A&O X3. Speech clear. PSYCHIATRIC: Appropriate mood and affect. Normal interaction. Discharge Plan Discharge Attending physician on discharge: Adelaida Rutherford Discharging Clinician: Katerin Street Anticipated Discharge Date/Time: 12/08/22 09:12 Patient Disposition: SNF Activity: as tolerated Diet: as tolerated Patient Instructions: Knee Pain (GEN) Patient Language: Faroese Stand Alone Forms: General Discharge Information, Retirement Discharge Follow-up/Referrals: Octavio,Ramonita Costa MD [Primary Care Provider] - 1 Week Discharge Medications: New acetaminophen 500 mg capsule 1,000 mg PO Q6H PRN (Reason: pain) Qty: 30 0RF ibuprofen 200 mg capsule 600 mg PO Q6H PRN (Reason: pain) Qty: 48 0RF Continued pregabalin [Lyrica] 100 mg capsule 100 mg PO DAILY omeprazole 20 mg capsule,delayed release(DR/EC) 20 mg PO DAILY metoprolol succinate 50 mg tablet extended release 24 hr 50 mg PO DAILY pravastatin 10 mg tablet 10 mg PO DAILY Premarin 0.625 mg/gram cream 1 applic vaginal WEEKLY Rx Instructions: on saturday levothyroxine 125 mcg tablet 125 mcg PO DAILY clotrimazole-betamethasone 1-0.05 % cream 1 trung
[2022-12-11 12:07] LABS: SARS-CoV-2 RNA PCR Negative (Negative)
--- NOTE | 2022-12-11 12:57 | PC.NURSE ---
no iv, report called to Opal dominguez to [facility], ambulance scheduled to transport patient. d/c papers faxed to facility. all belongings together in bags for transport.
== END 2022-12-11 13:25 ==
LOC: ANHED 22:51 → ANH3MEDSUR 12-05 03:03
PROVIDERS: Nurse Practitioner Acute Care; Admitting Provider Internal Medicine; Emergency Provider Student in an Organized Health Care Education/Training Program; PCP Family Medicine; Visit Provider Student in an Organized Health Care Education/Training Program
DX: M25.562 Pain in left knee (principal); I48.20 Chronic atrial fibrillation, unspecified; E03.9 Hypothyroidism, unspecified; E66.9 Obesity, unspecified; Z68.37 Body mass index [BMI] 37.0-37.9, adult; Z20.822 Contact with and (suspected) exposure to COVID-19; G47.33 Obstructive sleep apnea (adult) (pediatric); L29.9 Pruritus, unspecified; I27.20 Pulmonary hypertension, unspecified; G62.9 Polyneuropathy, unspecified; Z99.89 Dependence on other enabling machines and devices; Z87.440 Personal history of urinary (tract) infections; Z79.1 Long term (current) use of non-steroidal anti-inflammatories (NSAID); Z79.899 Other long term (current) drug therapy
CPT/HCPCS: 36415; 73562; 80048; 81003; 85025; 85027; 87635; 96372; 97110; 97116; 97161; 97165; 97530; 97535; 99285; A9270; G0378; J1650; J1885

== ENCOUNTER 2022-12-28 11:59 | Outpatient (NON) | payer MEDICARE, SELFPAY ==
[2022-12-28 12:40] LABS: Appearance Urine Cloudy (Clear); Bacteria Urine 4+ /hpf; Bilirubin Urine Negative (Negative); Blood Urine Negative (Negative); Color Urine Dark Yellow (Yellow); Glucose Urine UA Negative (Negative); Ketones Urine Negative (Negative); Leukocyte Esterase Ur 2+ LEU/UL (Negative); Nitrate Urine Negative (Negative); Non Pathogenic Casts 0-2; Protein Urine Negative (Negative); RBC Urine 0-2 /hpf (0-2); Specific Grav Ur 1.011 (1.001-1.035); Squamous Epithelial Cell Urine None seen /hpf (Few); Urobilinogen Urine 0.2 mg/dL (<2.0); WBC Urine 51-100 /hpf; pH Urine 5.5 (5.0-9.0)
[2022-12-28 12:44] LABS: Add Urine Microscopic? YES
== END 2022-12-28 12:00 | disposition home or self-care (01) ==
LOC: HOME HLTH 12:01
PROVIDERS: PCP Family Medicine; Visit Provider Nurse Practitioner Adult Health
DX: M17.12 Unilateral primary osteoarthritis, left knee (principal); I48.20 Chronic atrial fibrillation, unspecified; I27.20 Pulmonary hypertension, unspecified; G62.9 Polyneuropathy, unspecified; N39.0 Urinary tract infection, site not specified
CPT/HCPCS: 81001; 87077; 87086; 87186

== ENCOUNTER 2023-01-02 07:57 | Emergency (ER) | payer MEDICARE, SELFPAY ==
--- NOTE | ~2023-01-02 | XR_ITS ---
Left wrist Technique: PA, oblique, lateral, and ulnar deviation views were obtained. Clinical History: Pain Findings: No acute fracture or dislocation is seen. Osseous alignment is anatomic. There is moderate degenerative change of the first CMC joint. Soft tissues are unremarkable. Impression: No fracture or dislocation. 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 Reviewed, dictated and finalized at [facility]. RMATICA ARCHITECT Impression: No fracture or dislocation. 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
--- NOTE | ~2023-01-02 | CT_ITS ---
EXAMINATION: CT brain wo con DATE: 01/02/2023 08:24 INDICATION: Head injury. TECHNIQUE: Computed tomography (CT) of the head was performed without intravenous contrast. The mA wa s adjusted according to patient size. Iterative reconstruction technique was employed. The dose-lengt h product was 605.33 mGy-cm. COMPARISON: None FINDINGS: There are scattered areas of low attenuation in the cerebral white matter, which is within normal limits for the patient's age. There is no intracranial hemorrhage, acute infarction, or abnorm al intracranial mass lesion. The ventricles are normal in size. 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 There is a left periorbital hematoma. The mastoid air cells are normal. The paranasal sinuses are clear. IMPRESSION: 1. Normal aging brain. Reviewed, dictated and finalized at location A. [employer]ER IMPRESSION: 1. Normal aging brain.
[2023-01-02 07:55] VITALS: BP 188/69; PULSE 68; RESP 18; TEMP 36.4; O2SAT 100
[2023-01-02 08:59] LABS: Basophils Absolute Auto 0.1 K/mm3 (0.0-0.1); Eosinophils Absolute Auto 0.2 K/mm3 (0-0.3); Eosinophils Percent Auto 3.9 % (0-4.4); Hematocrit 45.3 % (37.0-47.0); Hemoglobin 14.3 g/dL (12.0-15.0); Immature Granulocyte Absolute 0.01 K/mm3 (0.00-0.031); Immature Granulocyte Percent A 0.2 % (0-0.5); Lymphocytes Absolute Auto 1.54 K/mm3 (0.9-3.2); Lymphocytes Percent Auto 31.9 % (18.3-44.2); Mean Corpuscular HGB Conc 31.6 g/dl (32-36); Mean Corpuscular Hemoglobin 28.9 pg (26-34); Mean Corpuscular Volume 91.7 fl (80-100); Mean Platelet Volume 10.3 fl (7.4-10.4); Monocytes Absolute Auto 0.4 K/mm3 (0.1-0.6); Monocytes Percent Auto 7.5 % (2.6-8.5); Neutrophils Absolute Auto 2.7 K/mm3 (1.3-6.7); Neutrophils Percent Auto 55.5 % (45.5-73.1); Platelet Count Result 199 k/mm3 (150-375); Red Blood Count 4.94 M/mm3 (4.2-5.4); Red Cell Distribution Width 13.8 % (11.5-14.5); White Blood Count 4.8 K/mm3 (4.5-10.0)
--- NOTE | 2023-01-02 08:59 | ED.FALL ---
HPI - Fall General Chief Complaint: Fall Stated Complaint: fall History of Present Illness HPI Narrative: Patient is an 82-year-old female who presents to the ER after a fall. She is using her rolling walker when she lost her balance. She fell to her left side. She hurt her left wrist and also struck her left head on the ground. No loss of consciousness. She is not on any blood thinning medications. She reports she was recently diagnosed with a UTI and has not yet started antibiotics. Chart review shows that she has Klebsiella in her urine. Patient reports she is not feeling overtly week. No numbness or tingling to the affected extremity. Maintains range of motion. Currently icing it. Related Data Home Medications Medication Instructions Recorded Confirmed omeprazole 20 mg capsule,delayed 20 mg PO DAILY 04/20/19 12/05/22 release pregabalin 100 mg capsule (Lyrica) 100 mg PO DAILY 06/17/20 12/05/22 clotrimazole-betamethasone 1 1 applic topical DAILY PRN Itching 08/02/22 12/05/22 %-0.05 % topical cream conjugated estrogens 0.625 mg/gram 1 applic vaginal WEEKLY 08/02/22 12/05/22 vaginal cream (Premarin) cyclosporine 0.09 % eye drops in a 1 drp EACH EYE BID 08/02/22 12/05/22 dropperette (Cequa) ergocalciferol (vitamin D2) 1,250 1,250 mcg PO WEEKLY 08/02/22 12/05/22 mcg (50,000 unit) capsule levothyroxine 125 mcg tablet 125 mcg PO DAILY 08/02/22 12/05/22 metoprolol succinate 50 mg 50 mg PO DAILY 08/02/22 12/05/22 tablet,extended release 24 hr pravastatin 10 mg tablet 10 mg PO DAILY 08/02/22 12/05/22 vibegron 75 mg tablet (Gemtesa) 75 mg PO DAILY 08/02/22 12/05/22 ipratropium bromide 21 mcg (0.03 1 - 2 spray intranasal DAILY 12/05/22 12/05/22 %) nasal spray Allergies Allergy/AdvReac Type Severity Reaction Status Date / Time atorvastatin Allergy Mild Muscle Pain Verified 01/02/23 08:01 ciprofloxacin Allergy Unknown Hives Verified 01/02/23 08:01 codeine Allergy Unknown UNKNOWN Verified 01/02/23 08:01 Iodinated Contrast Media Allergy Unknown HIVES AND Verified 01/02/23 08:01 RASH levofloxacin Allergy Unknown Rash Verified 01/02/23 08:01 Mycobacterium Tuberculosis Allergy Unknown rash, a-fib Verified 01/02/23 08:01 (Tubercu [Mycobacterium Tuberculosis (Tuberculin PPD)] nitrofurantoin Allergy Unknown ITCH AND Verified 01/02/23 08:01 DIZZY Penicillins Allergy Unknown UTI Verified 01/02/23 08:01 prednisone Allergy Unknown Hives / Verified 01/02/23 08:01 Red Face Sulfa (Sulfonamide Allergy Unknown Anaphylactic Verified 01/02/23 08:01 Antibiotics) Shock Review of Systems Review of Systems: All systems reviewed & are unremarkable except as noted in HPI and below Constitutional: Constitutional: Denies chills, Denies fatigue and Denies fever(s) ENT: Denies nasal congestion and Denies sore throat Musculoskeletal: Musculoskeletal: Denies back pain, Reports arthralgias, Denies joint swelling and Denies muscle cramps Neurologic: Denies headache(s), Denies focal weakness and Denies numbness PMFSH Past Medical History Medical History Chronic atrial fibrillation Frequent urinary tract infections Hypersomnia Hypothyroidism Obesity (BMI 30-39.9) Obstructive sleep apnea Pulmonary hypertension Rhinitis Shortness of Breath Sleep-disordered breathing SOB (shortness of breath) Surgical History Surgical History History of hysterectomy Family History Family History Mother Carcinoma of colon Father Family history of emphysema, Onset Age: 60 Social History Social History Smoking status: Never smoker Second hand tobacco smoke exposure: No Alcohol intake: never Substance use: never Substance use type: does not use Lack of Transportation
[2023-01-02 09:08] LABS: Alanine Aminotransferase 19 U/L (6-35); Albumin Level 4.3 g/dL (3.5-5.1); Alkaline Phosphatase 97 U/L (38-126); Anion Gap 9 mmol/L (8-16); Aspartate Amino Transferase 24 U/L (14-36); Bilirubin,Total 0.7 mg/dL (0.2-1.3); Blood Urea Nitrogen 11 mg/dL (7-17); Calcium 10.3 mg/dL (8.4-10.2); Carbon Dioxide 30 mmol/L (22-30); Chloride 102 mmol/L (98-107); Estimated CRCL calculation 76 ml/min; Estimated Glomerular Filt Rate > 60; Glucose 113 mg/dL (65-110); Potassium 4.1 mmol/L (3.4-5.0); Sodium 141 mmol/L (137-145)
== END 2023-01-02 09:45 | disposition home or self-care (01) ==
PROVIDERS: Emergency Provider Emergency Medicine; PCP Family Medicine
DX: S63.502A Unspecified sprain of left wrist, initial encounter (principal); N39.0 Urinary tract infection, site not specified; I48.91 Unspecified atrial fibrillation; Z87.440 Personal history of urinary (tract) infections; E03.9 Hypothyroidism, unspecified; G47.30 Sleep apnea, unspecified; I27.20 Pulmonary hypertension, unspecified; W01.0XXA Fall on same level from slipping, tripping and stumbling without subsequent striking against object, initial encounter
CPT/HCPCS: 36415; 70450; 73110; 80053; 85025; 99284

== ENCOUNTER 2023-03-14 08:19 | Emergency (ER) | payer MEDICARE, SELFPAY ==
--- NOTE | ~2023-03-14 | US_ITS ---
EXAMINATION:US venous doppler LE BI INDICATION:Bilateral leg swelling TECHNIQUE: Multiple grayscale, color flow and Doppler images of the right and left lower extremity de ep venous systems were obtained and reviewed. COMPARISON:Ultrasound dated 04/11/2018 FINDINGS: The common femoral, superficial femoral and popliteal veins demonstrate normal respiratory variation, augmentation and compressibility. Color flow is also seen within the posterior tibial, pe roneal, greater saphenous and profunda veins. IMPRESSION: 1: No lower extremity deep venous thrombosis. Reviewed, dictated and finalized at location L. YNECOLOGY PHYSICIAN
[2023-03-14 08:21] VITALS: BP 168/74; PULSE 76; RESP 20; TEMP 36.4; O2SAT 100
[2023-03-14 08:33] VITALS: BP 168/60; PULSE 78; RESP 18; O2SAT 99
[2023-03-14 09:00] VITALS: BP 189/72; PULSE 72; RESP 18; O2SAT 100
[2023-03-14 11:08] VITALS: BP 181/106; PULSE 74; RESP 18; O2SAT 100
--- NOTE | 2023-03-14 11:11 | ED.LOWEXIN ---
HPI - Extremity Injury (Lower) General Chief Complaint: Extremity Injury, Lower Stated Complaint: bilat leg swelling, concerned for blood clots Time Seen by Provider: 03/14/23 08:28 Patient is an 82-year-old female who presents ER with concerns for lower extremity DVT. She reports she has had swelling in her legs worsening last couple weeks. She has an outpatient order but has been unable to get it. No chest pain or shortness of breath. History DVT. She reports she has had some weeping from her left leg down near the ankle. No redness. Patient reports she was prescribed Lasix several days ago but cannot have the medications delivered into last night. She has not yet taken a dose. Related Data Home Medications Medication Instructions Recorded Confirmed omeprazole 20 mg capsule,delayed 20 mg PO DAILY 04/20/19 12/05/22 release pregabalin 100 mg capsule (Lyrica) 100 mg PO DAILY 06/17/20 12/05/22 clotrimazole-betamethasone 1 1 applic topical DAILY PRN Itching 08/02/22 12/05/22 %-0.05 % topical cream conjugated estrogens 0.625 mg/gram 1 applic vaginal WEEKLY 08/02/22 12/05/22 vaginal cream (Premarin) cyclosporine 0.09 % eye drops in a 1 drp EACH EYE BID 08/02/22 12/05/22 dropperette (Cequa) ergocalciferol (vitamin D2) 1,250 1,250 mcg PO WEEKLY 08/02/22 12/05/22 mcg (50,000 unit) capsule levothyroxine 125 mcg tablet 125 mcg PO DAILY 08/02/22 12/05/22 metoprolol succinate 50 mg 50 mg PO DAILY 08/02/22 12/05/22 tablet,extended release 24 hr pravastatin 10 mg tablet 10 mg PO DAILY 08/02/22 12/05/22 vibegron 75 mg tablet (Gemtesa) 75 mg PO DAILY 08/02/22 12/05/22 ipratropium bromide 21 mcg (0.03 1 - 2 spray intranasal DAILY 12/05/22 12/05/22 %) nasal spray Allergies Allergy/AdvReac Type Severity Reaction Status Date / Time atorvastatin Allergy Mild Muscle Pain Verified 03/14/23 08:32 ciprofloxacin Allergy Unknown Hives Verified 03/14/23 08:32 codeine Allergy Unknown UNKNOWN Verified 03/14/23 08:32 Iodinated Contrast Media Allergy Unknown HIVES AND Verified 03/14/23 08:32 RASH levofloxacin Allergy Unknown Rash Verified 03/14/23 08:32 Mycobacterium Tuberculosis Allergy Unknown rash, a-fib Verified 03/14/23 08:32 (Tubercu [Mycobacterium Tuberculosis (Tuberculin PPD)] nitrofurantoin Allergy Unknown ITCH AND Verified 03/14/23 08:32 DIZZY Penicillins Allergy Unknown UTI Verified 03/14/23 08:32 prednisone Allergy Unknown Hives / Verified 03/14/23 08:32 Red Face Sulfa (Sulfonamide Allergy Unknown Anaphylactic Verified 03/14/23 08:32 Antibiotics) Shock Review of Systems Review of Systems: All systems reviewed & are unremarkable except as noted in HPI and below Cardiovascular: Cardiovascular: Reports no additional cardiovascular complaints Respiratory: Respiratory: Reports no additional respiratory complaints Musculoskeletal: Musculoskeletal: Reports no additional musculoskeletal complaints Integumentary/Breasts: Skin/Breast: Reports system reviewed and no additional complaints, except as docu PMFSH Past Medical History Medical History Chronic atrial fibrillation Frequent urinary tract infections Hypersomnia Hypothyroidism Obesity (BMI 30-39.9) Obstructive sleep apnea Pulmonary hypertension Rhinitis Shortness of Breath Sleep-disordered breathing SOB (shortness of breath) Surgical History Surgical History History of hysterectomy Family History Family History Mother Carcinoma of colon Father Family history of emphysema, Onset Age: 60 Social History Social History Smoking status: Never smoker Second hand tobacco smoke exposure: No Alcohol intake: never Substance use: never Substance use type: does not use Lack of Transportat
[2023-03-14 11:30] VITALS: BP 164/89; PULSE 77; RESP 17; TEMP 36.4; O2SAT 100
== END 2023-03-14 11:32 | disposition home or self-care (01) ==
PROVIDERS: Emergency Provider Emergency Medicine; PCP Family Medicine
DX: R60.0 Localized edema (principal); I48.20 Chronic atrial fibrillation, unspecified; I27.20 Pulmonary hypertension, unspecified; E03.9 Hypothyroidism, unspecified; E66.9 Obesity, unspecified; G47.33 Obstructive sleep apnea (adult) (pediatric); G47.10 Hypersomnia, unspecified; Z87.440 Personal history of urinary (tract) infections; Z90.710 Acquired absence of both cervix and uterus
CPT/HCPCS: 93970; 99284

== ENCOUNTER 2023-08-12 01:31 | Day surgery (SDC) | payer MEDICARE, SELFPAY ==
[2023-08-09 14:19] VITALS: BMI 38.4
[2023-08-12] VITALS (21 sets, daily range): BP systolic 127–165; BP diastolic 49–92; PULSE 68–88; RESP 12–19; TEMP 36.3–36.5; O2SAT 93–98; BMI 38.7
--- NOTE | 2023-08-12 09:10 | SUR.PREOP ---
PT. JUST ARRIVED TO [facility] FOR APPOINTMENT FOR OUTPATIENT [facility] W/ DR. ZURITA. AMBULATED W/ JOSE RAMON QUINTERO. BRINGS IN TODAY PRE MEDS OF BENADRYL AND PREDNISONE FOR PROPHYLAXIS OF CONTRAST ALLERGY. CONTRAST ALLERGY PROPHYLAXIS SCHEDULE FROM DR. ZURITA'S OFFICE STATES PREDNISONE 50MG PO, 13 HOURS PRIOR TO, 7 HOURS PRIOR TO, AND 1 HOUR PRIOR TO PROCEDURE (WITH LAST DOSE BROUGHT W/ PT. TO HOSPITAL TO TAKE AT 0900), AND BENADRYL 50MG PO, 1 HOUR PRIOR TO PROCEDURE (DOSE BROUGHT W/ PT. TO HOSPITAL TO TAKE AT 0900). PT. DID BRING AND TAKE PO BENADRYL 50MG, BUT PREDNISONE BOTTLE FILLED FROM [facility] HAD PREDNISONE 10MG, QTY 3 TABLETS FILLED. PT. DID TAKE PREDNISONE 10MG TABLET PER SCHEDULED TIMES AND NOW TOOK FINAL TABLET OF 10MG. CHARGE NURSE, ERICA Treviño. NOTIFIED. DR. ZURITA WILL BE NOTIFIED.
[2023-08-12 09:40] LABS: Basophils Percent Auto 0.7 % (0.2-1.2); Eosinophils Percent Auto 0.2 % (0-4.4); Hematocrit 46.4 % (37.0-47.0); Immature Granulocyte Absolute 0.02 K/mm3 (0.00-0.031); Immature Granulocyte Percent A 0.3 % (0-0.5); Lymphocytes Absolute Auto 1.27 K/mm3 (0.9-3.2); Mean Corpuscular HGB Conc 32.3 g/dl (32-36); Mean Corpuscular Hemoglobin 29.2 pg (26-34); Mean Corpuscular Volume 90.4 fl (80-100); Mean Platelet Volume 10.4 fl (7.4-10.4); Monocytes Absolute Auto 0.2 K/mm3 (0.1-0.6); Monocytes Percent Auto 3.1 % (2.6-8.5); Neutrophils Absolute Auto 4.5 K/mm3 (1.3-6.7); Neutrophils Percent Auto 74.7 % (45.5-73.1); Platelet Count Result 251 k/mm3 (150-375); Red Blood Count 5.13 M/mm3 (4.2-5.4); Red Cell Distribution Width 13.8 % (11.5-14.5); White Blood Count 6.1 K/mm3 (4.5-10.0)
[2023-08-12 09:50] LABS: Anion Gap 6 mmol/L (4-12); Blood Urea Nitrogen 15 mg/dL (7-17); Calcium 10.3 mg/dL (8.4-10.2); Carbon Dioxide 27 mmol/L (22-30); Chloride 107 mmol/L (98-107); Estimated CRCL calculation 103 ml/min; Estimated Glomerular Filt Rate > 60; Glucose 130 mg/dL (65-110); Potassium 4.2 mmol/L (3.4-5.0); Sodium 140 mmol/L (137-145)
--- NOTE | 2023-08-12 10:22 | WPDMODSED ---
Moderate Sedation Note-Pt Data Patient Data Diagnosis: History of atrial fibrillation Abnormal nuclear stress test Preop evaluation prior to noncardiac surgery Present Complaint: No complaint Procedure to be performed/Plan: Left heart catheterization Allergies Allergy/AdvReac Type Severity Reaction Status Date / Time atorvastatin Allergy Mild Muscle Pain Verified 08/12/23 09:32 ciprofloxacin Allergy Unknown Hives Verified 08/12/23 09:32 codeine Allergy Unknown UNKNOWN Verified 08/12/23 09:32 Iodinated Contrast Media Allergy Unknown HIVES AND Verified 08/12/23 09:32 RASH levofloxacin Allergy Unknown Rash Verified 08/12/23 09:32 Mycobacterium Tuberculosis Allergy Unknown rash, a-fib Verified 08/12/23 09:32 (Tubercu [Mycobacterium Tuberculosis (Tuberculin PPD)] nitrofurantoin Allergy Unknown ITCH AND Verified 08/12/23 09:32 DIZZY Penicillins Allergy Unknown UTI Verified 08/12/23 09:32 Sulfa (Sulfonamide Allergy Unknown Anaphylactic Verified 08/12/23 09:32 Antibiotics) Shock diltiazem Allergy Unknown Verified 08/12/23 09:32 isosorbide Allergy Unknown Verified 08/12/23 09:32 Home Medications Medication Instructions Recorded Confirmed Type omeprazole 20 mg capsule,delayed 20 mg PO DAILY 04/20/19 08/09/23 History release pregabalin 100 mg capsule (Lyrica) 100 mg PO DAILY 06/17/20 08/09/23 History clotrimazole-betamethasone 1 1 applic topical DAILY PRN Itching 08/02/22 08/09/23 History %-0.05 % topical cream conjugated estrogens 0.625 mg/gram 1 applic vaginal EVERY OTHER DAY 08/02/22 08/09/23 History vaginal cream (Premarin) ergocalciferol (vitamin D2) 1,250 1,250 mcg PO WEEKLY 08/02/22 08/09/23 History mcg (50,000 unit) capsule levothyroxine 125 mcg tablet 125 mcg PO DAILY 08/02/22 08/09/23 History metoprolol succinate 50 mg 50 mg PO DAILY 08/02/22 08/09/23 History tablet,extended release 24 hr pravastatin 10 mg tablet 10 mg PO DAILY 08/02/22 08/09/23 History vibegron 75 mg tablet (Gemtesa) 75 mg PO DAILY 08/02/22 08/09/23 History acetaminophen 325 mg capsule 650 mg PO PRN PRN Back Pain 08/09/23 08/09/23 History (Tylenol) aspirin 325 mg tablet 325 mg PO DAILY 08/09/23 08/09/23 History furosemide 20 mg tablet 20 mg PO DAILY PRN swelling 08/09/23 08/09/23 History lifitegrast 5 % eye drops in a 1 drp EACH EYE BID 08/09/23 08/09/23 History dropperette (Xiidra) nystatin 100,000 unit/gram topical See Rx Instructions .Route .COMPLEX 08/09/23 08/09/23 History powder Current Medications: Active Medications Sodium Chloride (Normal Saline Iv) 500 mls @ 100 mls/hr IV CONT .Q5H RILEY Sedation/Anesthesia: No previous sedation/anesthesia problems (including family history). [facility] Past Medical History Medical History Chronic atrial fibrillation Frequent urinary tract infections Hypersomnia Hypothyroidism Obesity (BMI 30-39.9) Obstructive sleep apnea Pulmonary hypertension Rhinitis Shortness of Breath Sleep-disordered breathing SOB (shortness of breath) Surgical History Surgical History History of hysterectomy Family History Family History Mother Carcinoma of colon Father Family history of emphysema, Onset Age: 60 Social History Social History Smoking status: Never smoker Second hand tobacco smoke exposure: No Alcohol intake: never Substance use: never Substance use type: does not use Lack of Transportation: No Lack of Food: Never True Current Housing: I Have Housing Concerned About Future Housing: No Difficulty Paying Gas/Electric Bills: No Difficulty Paying for Meds: No Currently Unemployed: No Education: Master's Degree or Higher Difficulty w/ Childcare or Family Care: No Living arrange
[2023-08-12] MEDS: methylPREDNISolone SOD SUCC 125 MG VIAL IV PUSH (10:34)
[2023-08-12] MEDS: ACETAMINOPHEN 325 MG TABLET 650 MG PO (10:56)
[2023-08-12] MEDS: SODIUM CHLORIDE 0.9% IV 500 ML 100 ML IV CONT (14:00)
--- NOTE | 2023-08-12 14:50 | P.PCNCC_ITS ---
Cardiac Cath Procedure Note Date of procedure:: 08/12/23 Performing physician:: Mendez Sumner MD Indication:: Abnormal nuclear stress test preop evaluation prior to noncardiac surgery Brief clinical history:: this is an 83-year-old woman with previous history of atrial fibrillation who is anticipating noncardiac surgery. Risk assessment evaluation included a Lexiscan nuclear stress test which was interpreted as showing evidence of anterior ischemia. This led to recommendation for angiography. The patient is allergic to contrast which delayed the start of the case to allow for adequate pre treatment with steroids. Procedure Procedure performed:: Left ventriculogram coronary angiogram femoral angiogram Sedation/Medication given:: fentanyl 25 mg Versed 2 mg case start time 2:23 p.m. case end time 2:44 p.m. sedation provided by Izabella Powell RN, trained observer Access site:: right femoral artery Estimated blood loss:: 30 cc Procedure note:: patient was brought to the cardiac catheterization lab in the postabsorptive state where the right femoral triangle was prepped and draped in the normal fashion. Anesthesia was provided with 1% lidocaine infiltrated locally. Using modified Seldinger technique the femoral on a puncture 5 [place] vascular sheath was placed. After this I used a 5 [place] FL4 catheter to engage inject the left coronary. A 5 [place] JR4 catheter used to engage and inject the right coronary artery. A 5 [place] angled pigtail catheter was lastly used to measure left- sided to inject the left ventriculogram in the 30 degree ROQUE projection. Following this the case was terminated. An angiogram was to the femoral artery through the sheath. The puncture site was too low for an Angio-Seal device and so she will be taken to holding area for manual sheath removal. Patient was significantly hypertensive as detailed below she was given 20 mg of intravenous labetalol at the end of the case. Findings:: Hemodynamics: Central aortic pressure is 195 over 88 left ventricle 195/0 end-diastolic 20 there is no gradient valve. Left ventricle: Left ventricle is of normal size. All segments contract vigorously with an ejection fraction of 70-75% by visual estimation. There were no regional wall motion abnormalities seen. The left main coronary artery is large in caliber there is minimal plaquing of about 20-30% stenosis at the ostium of the left main. The left anterior descending is a moderate caliber artery extending down to the apex. There is mild diffuse plaquing throughout the LAD but no stenosis of more than 30% is seen. The circumflex is a moderate caliber artery giving rise to the marginal bran ches. The circumflex system is free of disease. The right coronary artery is large in caliber and dominant to the posterior circulation the right coronary artery has minimal luminal irregularity in the 2nd portion but the vessel is widely patent with no significant disease Conclusion:: 1. right coronary dominant circulation with minimal angiographic coronary abnormalities. 2. Vigorous left ventricular systolic contractility 3. systemic hypertension Mendez Sumner MD FACC
[2023-08-12] MEDS: fentaNYL CITRATE INJ (*CRX) 100 MCG/2 ML VIAL 25 MCG IV PUSH (15:22)
== END 2023-08-12 21:00 | disposition home or self-care (01) ==
PROVIDERS: PCP Internal Medicine Cardiovascular Disease; Visit Provider Specialist
PROC: 4A023N7 Measurement of Cardiac Sampling and Pressure, Left Heart, Percutaneous Approach (ICD-10-PCS; CPT 93452; principal; 2023-08-12 10:00)
DX: I25.10 Atherosclerotic heart disease of native coronary artery without angina pectoris (principal); R94.39 Abnormal result of other cardiovascular function study; I10 Essential (primary) hypertension; I48.20 Chronic atrial fibrillation, unspecified; E03.9 Hypothyroidism, unspecified; G47.33 Obstructive sleep apnea (adult) (pediatric); I27.20 Pulmonary hypertension, unspecified; E66.9 Obesity, unspecified; Z68.38 Body mass index [BMI] 38.0-38.9, adult
CPT/HCPCS: 36415; 80048; 85025; 93458; A9270; C1887; C1894; J1644; J2250; J2919; J3010; J7040

== ENCOUNTER 2023-09-20 14:07 | Inpatient (IN) | payer MEDICARE, SELFPAY ==
[2023-09-20] VITALS (7 sets, daily range): BP systolic 150–186; BP diastolic 66–84; PULSE 79–84; RESP 16–20; TEMP 36.4–36.7; O2SAT 95–100; BMI 38.7
--- NOTE | ~2023-09-20 | US_ITS ---
Duplex Sonography of the bilateral lower extremities: Indication: Swelling Sagittal and transverse B-mode images as well as color-flow imaging were performed on the right and l eft femoral and popliteal veins. B-mode examination was done without and with compression in the tra nsverse plane. There is good visualization of the bilateral common femoral, proximal profunda femora l, superficial femoral, greater saphenous, and popliteal veins. Normal flow was seen on color-flow im aging. Normal compressibility was demonstrated. Visualized calf veins are also patent. Impression: No evidence of deep vein thrombosis involving the bilateral lower extremities. Reviewed, dictated and finalized at location M. Impression: No evidence of deep vein thrombosis involving the bilateral lower e xtremities.
--- NOTE | ~2023-09-20 | XR_ITS ---
EXAMINATION: XR chest 1V portable DATE: 09/20/2023 22:11 INDICATION: Lower limb swelling TECHNIQUE: frontal view of the chest was obtained. COMPARISON: Chest radiograph dated 12/27/2016 FINDINGS: Unchanged mild linear discoid atelectasis/scarring in the right lower lung zone. No other airspace op acities, pulmonary edema, pleural effusion or pneumothorax. The cardiomediastinal silhouette is eduardo l. IMPRESSION: 1. No acute cardiopulmonary disease. Reviewed, dictated and finalized at location A.
[2023-09-20 15:00] LABS: Add Urine Microscopic? YES; Appearance Urine Clear (Clear); Bacteria Urine 4+ /hpf; Bilirubin Urine Negative (Negative); Blood Urine Negative (Negative); Color Urine Dark Yellow (Yellow); Glucose Urine UA Negative (Negative); Ketones Urine Negative (Negative); Leukocyte Esterase Ur Trace LEU/UL (Negative); Nitrate Urine Negative (Negative); Non Pathogenic Casts 0-2; Protein Urine Negative (Negative); RBC Urine 0-2 /hpf (0-2); Specific Grav Ur 1.005 (1.001-1.035); Squamous Epithelial Cell Urine None Seen /hpf (Few); Urobilinogen Urine 0.2 mg/dL (<2.0)
--- NOTE | 2023-09-20 16:59 | ED.GENADULT ---
HPI - General Adult General Chief complaint: Urogenital-Female <Kris MAY Prince - Last Filed: 09/20/23 17:01> Stated complaint: uti <Kris Prince APRN - Last Filed: 09/20/23 17:01> Time Seen by Provider: 09/20/23 16:59 <Kris Prince APRN - Last Filed: 09/20/23 17:01> patient presents with a uti needing iv abx. patient states she went to her pcp at [facility] and gave a uti. patient urine culture came back with only cefepime and meropenem susceptible. patient presents to be admitted for iv abx. patient denies any symptoms. PE: A&OX3, BS Non-labor, abdomen is soft and non-tender, skin is warm and intact <Kris Prince APRN - Last Filed: 09/20/23 17:01> Patient presents with a uti needing iv abx. patient states she went to her pcp at [facility] and gave a UTI. patient urine culture came back with only cefepime and meropenem susceptible. patient presents to be admitted for iv abx. patient denies any symptoms. PE: A&OX3, BS Non-labor, abdomen is soft and non-tender, skin is warm and intact <James Lunsford MD - Last Filed: 09/20/23 21:31> History of Present Illness HPI narrative: This is an 83-year-old female presenting ED with chief complaint of UTI. Patient had a urologic procedure performed with Dr. Benitez out of the [facility] system about 7 days ago. She is unsure exactly what the procedure was. The patient believe that the procedure involved Botox and a mesh removal. Several days later she developed UTI symptoms. Patient is incontinent since the procedure. 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 The patient had no way to get to [facility] so she came to [place]. Patient denies fevers chills nausea vomiting diarrhea chest pain difficulty breathing or flank pain. <James Lunsford MD - Last Filed: 09/20/23 21:31> Related Data Home medications: Home Medications Medication Instructions Recorded Confirmed omeprazole 20 mg capsule,delayed 20 mg PO DAILY 04/20/19 08/09/23 release pregabalin 100 mg capsule (Lyrica) 100 mg PO DAILY 06/17/20 08/09/23 clotrimazole-betamethasone 1 1 applic topical DAILY PRN Itching 08/02/22 08/09/23 %-0.05 % topical cream conjugated estrogens 0.625 mg/gram 1 applic vaginal EVERY OTHER DAY 08/02/22 08/09/23 vaginal cream (Premarin) ergocalciferol (vitamin D2) 1,250 1,250 mcg PO WEEKLY 08/02/22 08/09/23 mcg (50,000 unit) capsule levothyroxine 125 mcg tablet 125 mcg PO DAILY 08/02/22 08/09/23 metoprolol succinate 50 mg 50 mg PO DAILY 08/02/22 08/09/23 tablet,extended release 24 hr pravastatin 10 mg tablet 10 mg PO DAILY 08/02/22 08/09/23 vibegron 75 mg tablet (Gemtesa) 75 mg PO DAILY 08/02/22 08/09/23 acetaminophen 325 mg capsule 650 mg PO PRN PRN Back Pain 08/09/23 08/09/23 (Tylenol) aspirin 325 mg tablet 325 mg PO DAILY 08/09/23 08/09/23 furosemide 20 mg tablet 20 mg PO DAILY PRN swelling 08/09/23 08/09/23 lifitegrast 5 % eye drops in a 1 drp EACH EYE BID 08/09/23 08/09/23 dropperette (Xiidra) nystatin 100,000 unit/gram topical See Rx Instructions .Route .COMPLEX 08/09/23 08/09/23 powder <Kris Prince, INGREDIENT HANDLER - Last Filed: 09/20/23 17:01> Allergies/adverse reactions: Allergies Allergy/AdvReac Type Severity Reaction Status Date / Time atorvastatin Allergy Mild Muscle Pain Verified 09/20/23 20:17 ciprofloxacin Allergy Unknown Hives Verified 09/20/23 20:17 codeine Allergy Unknown UNKNOWN Verified 09/20/23 20:17 Iodinated Contrast Media Allergy Unknown HIVES AND Verified 09/20/23 20:17 RASH levofloxacin Allergy Unknown Rash Verified 09/20/23 20:17 Mycobacterium Tuberculosis Allergy Unknown rash, a-fib Verified 09/20/23 20:17 (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
[2023-09-20 17:09] LABS: Basophils Absolute Auto 0.1 K/mm3 (0.0-0.1); Basophils Percent Auto 1.4 % (0.2-1.2); Eosinophils Absolute Auto 0.2 K/mm3 (0-0.3); Eosinophils Percent Auto 3.6 % (0-4.4); Hematocrit 46.5 % (37.0-47.0); Hemoglobin 15.1 g/dL (12.0-15.0); Immature Granulocyte Absolute 0.01 K/mm3 (0.00-0.031); Immature Granulocyte Percent A 0.2 % (0-0.5); Lymphocytes Absolute Auto 1.39 K/mm3 (0.9-3.2); Mean Corpuscular HGB Conc 32.5 g/dl (32-36); Mean Corpuscular Hemoglobin 29.9 pg (26-34); Mean Corpuscular Volume 92.1 fl (80-100); Mean Platelet Volume 10.1 fl (7.4-10.4); Monocytes Absolute Auto 0.4 K/mm3 (0.1-0.6); Monocytes Percent Auto 8.1 % (2.6-8.5); Neutrophils Absolute Auto 2.9 K/mm3 (1.3-6.7); Neutrophils Percent Auto 58.7 % (45.5-73.1); Platelet Count Result 232 k/mm3 (150-375); Red Blood Count 5.05 M/mm3 (4.2-5.4); Red Cell Distribution Width 13.9 % (11.5-14.5)
[2023-09-20 17:19] LABS: Alanine Aminotransferase 25 U/L (6-35); Albumin Level 4.6 g/dL (3.5-5.1); Alkaline Phosphatase 117 U/L (38-126); Anion Gap 9 mmol/L (4-12); Aspartate Amino Transferase 27 U/L (14-36); Bilirubin,Total 0.4 mg/dL (0.2-1.3); Blood Urea Nitrogen 16 mg/dL (7-17); Calcium 10.8 mg/dL (8.4-10.2); Carbon Dioxide 29 mmol/L (22-30); Chloride 103 mmol/L (98-107); Estimated CRCL calculation 86 ml/min; Estimated Glomerular Filt Rate > 60; Glucose 132 mg/dL (65-110); Magnesium 2.2 mg/dL (1.6-2.3); Potassium 4.3 mmol/L (3.4-5.0); Sodium 141 mmol/L (137-145)
--- NOTE | 2023-09-20 20:24 | PC.NURSE ---
Patient states she lives at home alone, uses a walker to assist with mobility.
--- NOTE | 2023-09-20 21:30 | PC.NURSE ---
Patient became anxious and requested to speak with this RN and ERP about leaving. ERP went to speak with patient and physics technician in room. Patient was able to be redirected and did calm down. Patient now agreeable to admission and treatment. physics technician in room and obtaining blood cultures. Xray in room as well. Patient brief changed.
[2023-09-20] MEDS: CEFEPIME 1 GM/NS 50 ML 1 GM/50 ML BAG IVPB (22:17)
[2023-09-21] MEDS: LACTATED RINGERS 1,000 ML 75 ML IV CONT ×2 (00:03→14:10)
[2023-09-21] MEDS: ACETAMINOPHEN 325 MG TABLET 650 MG PO ×3 (03:26→21:06)
[2023-09-21 04:44] VITALS: BP 166/71; PULSE 71; RESP 20; TEMP 36.4; O2SAT 97
[2023-09-21] MEDS: LEVOTHYROXINE SODIUM 125 MCG TABLET PO (06:37)
[2023-09-21] MEDS: PREGABALIN (*CRX) 50 MG CAPSULE 100 MG PO (08:39)
[2023-09-21 08:40] VITALS: PULSE 88
[2023-09-21] MEDS: METOPROLOL SUCCINATE EXT REL 50 MG TABCR PO (08:40)
[2023-09-21] MEDS: PRAVASTATIN SODIUM 10 MG TABLET PO (08:40)
[2023-09-21] MEDS: CEFEPIME 1 GM/NS 50 ML 1 GM/50 ML BAG IVPB ×2 (08:43→21:06)
--- NOTE | 2023-09-21 09:25 | PHAR ---
Pharmacy verified home meds: * Use from home * Lifitegrast [Xiidra] 5 % dropperette use a single dropperette to instill 1 drop into each eye twice daily * Use from home * Vibegron [Gemtesa] 75 mg tablet take 1 tablet by mouth once daily
--- NOTE | 2023-09-21 09:33 | PHAR ---
Pharmacy verified home med: * Use from home * Omeprazole 20 mg capsule take 1 capsule by mouth daily
[2023-09-21] MEDS: IBUPROFEN 600 MG TABLET PO ×3 (11:13→23:36)
--- NOTE | 2023-09-21 13:45 | PM.IMHP ---
H&P: HPI History of Present Illness Date/Time: 09/21/23 13:45 Chief Complaint: [id number] Narrative: ER-HPI narrative: This is an 83-year-old female presenting ED with chief complaint of UTI. Patient had a urologic procedure performed with Dr. Benitez out of the [facility] system about 7 days ago. She is unsure exactly what the procedure was. The patient believe that the procedure involved Botox and a mesh removal. Several days later she developed UTI symptoms. Patient is incontinent since the procedure. 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 The patient had no way to get to [facility] so she came to [place]. Patient denies fevers chills nausea vomiting diarrhea chest pain difficulty breathing or flank pain. patient state since start of antibiotics her symptoms have improved, as patient has multi-drug resistant UTI with Morganella morganii, patient will require abx for 7 to 10 days. patient denies any fever or chills and her symptoms have improved will monitor and plan. Review of Systems Review of Systems: All systems reviewed & are unremarkable except as noted in HPI and below Cardiovascular: Cardiovascular: Reports no additional cardiovascular complaints Respiratory: Respiratory: Reports no additional respiratory complaints Musculoskeletal: Musculoskeletal: Reports no additional musculoskeletal complaints Integumentary/Breasts: Skin/Breast: Reports system reviewed and no additional complaints, except as docu PMFSH Past Medical History Medical History Chronic atrial fibrillation Frequent urinary tract infections Hypersomnia Hypothyroidism Obesity (BMI 30-39.9) Obstructive sleep apnea Pulmonary hypertension Rhinitis Shortness of Breath Sleep-disordered breathing SOB (shortness of breath) Surgical History Surgical History History of hysterectomy Family History Family History Mother Carcinoma of colon Father Family history of emphysema, Onset Age: 60 Social History Social History Smoking status: Never smoker Second hand tobacco smoke exposure: No Alcohol intake: never Substance use: never Substance use type: does not use Do You Feel Safe in your Home?: Yes Lack of Transportation: No Lack of Food: Never True Current Housing: I Have Housing Concerned About Future Housing: No Difficulty Paying Gas/Electric Bills: No Difficulty Paying for Meds: No Currently Unemployed: No Education: Master's Degree or Higher Difficulty w/ Childcare or Family Care: No Living arrangements: alone Occupation/Education: retired Spiritual care concerns: No Meds Home Medications and Allergies Home Medications Medication Instructions Recorded Confirmed Type omeprazole 20 mg capsule,delayed 20 mg PO DAILY 04/20/19 09/20/23 History release pregabalin 100 mg capsule (Lyrica) 100 mg PO DAILY 06/17/20 09/20/23 History clotrimazole-betamethasone 1 1 applic topical DAILY PRN Itching 08/02/22 09/20/23 History %-0.05 % topical cream conjugated estrogens 0.625 mg/gram 1 applic vaginal EVERY OTHER DAY 08/02/22 09/20/23 History vaginal cream (Premarin) ergocalciferol (vitamin D2) 1,250 1,250 mcg PO WEEKLY 08/02/22 09/20/23 History mcg (50,000 unit) capsule levothyroxine 125 mcg tablet 125 mcg PO DAILY 08/02/22 09/20/23 History metoprolol succinate 50 mg 50 mg PO DAILY 08/02/22 09/20/23 History tablet,extended release 24 hr pravastatin 10 mg tablet 10 mg PO DAILY 08/02/22 09/20/23 History vibegron 75 mg tablet (Gemtesa) 75 mg PO DAILY 08/02/22 09/20/23 History acetaminophen 325 mg capsule 650 mg PO PRN PRN Ba
[2023-09-21 14:00] VITALS: BP 133/59; PULSE 58; RESP 16; TEMP 36.3; O2SAT 96
[2023-09-21 16:00] VITALS: BP 133/59; PULSE 58; RESP 16; TEMP 36.7; O2SAT 96
[2023-09-21 20:36] VITALS: BP 144/65; PULSE 77; RESP 20; TEMP 36.6; O2SAT 95
[2023-09-22] VITALS (8 sets, daily range): BP systolic 132–164; BP diastolic 60–83; PULSE 57–68; RESP 16–20; TEMP 35.9–36.7; O2SAT 93–98
[2023-09-22] MEDS: ACETAMINOPHEN 325 MG TABLET 650 MG PO ×3 (01:30→20:25)
[2023-09-22] MEDS: LACTATED RINGERS 1,000 ML 75 ML IV CONT ×2 (02:56→17:04)
[2023-09-22 04:31] LABS: Hematocrit 40.4 % (37.0-47.0); Mean Corpuscular HGB Conc 32.2 g/dl (32-36); Mean Corpuscular Hemoglobin 29.6 pg (26-34); Mean Platelet Volume 10.3 fl (7.4-10.4); Platelet Count Result 193 k/mm3 (150-375); Red Blood Count 4.39 M/mm3 (4.2-5.4); Red Cell Distribution Width 13.7 % (11.5-14.5); White Blood Count 4.5 K/mm3 (4.5-10.0)
[2023-09-22 04:44] LABS: Anion Gap 6 mmol/L (4-12); Blood Urea Nitrogen 13 mg/dL (7-17); Calcium 9.6 mg/dL (8.4-10.2); Carbon Dioxide 28 mmol/L (22-30); Chloride 106 mmol/L (98-107); Estimated CRCL calculation 87 ml/min; Estimated Glomerular Filt Rate > 60; Glucose 113 mg/dL (65-110); Potassium 4.1 mmol/L (3.4-5.0); Sodium 140 mmol/L (137-145)
[2023-09-22] MEDS: PREGABALIN (*CRX) 50 MG CAPSULE 100 MG PO ×4 (05:49→20:24)
[2023-09-22] MEDS: IBUPROFEN 600 MG TABLET PO ×2 (05:50→12:16)
[2023-09-22] MEDS: LEVOTHYROXINE SODIUM 125 MCG TABLET PO (05:50)
[2023-09-22] MEDS: CEFEPIME 1 GM/NS 50 ML 1 GM/50 ML BAG IVPB ×2 (08:32→20:24)
[2023-09-22] MEDS: PRAVASTATIN SODIUM 10 MG TABLET PO (08:43)
[2023-09-22] MEDS: METOPROLOL SUCCINATE EXT REL 50 MG TABCR PO (08:43)
[2023-09-22] MEDS: polyethylene glycoL 3350 17 GM POWD.PACK PO (09:15)
--- NOTE | 2023-09-22 12:19 | WPDPN ---
Progress Note: A&P Assessment and Plan (1) Acute UTI: Code(s): N39.0 - Urinary tract infection, site not specified Status: Acute (2) MDRO (multiple drug resistant organisms) resistance: Status: Acute (3) Change in bowel habits: Code(s): R19.4 - Change in bowel habit Status: Acute Plan patient state since start of antibiotics her symptoms have improved, as patient has multi-drug resistant UTI with Morganella morganii, urine culture taken at the hospital still pending, patient will require abx based on urine culture will follow up. today patient complaints of pain and swelling right lower extremities, dopplor US was ordered to r/o DVT and it is negative. patient denies any fever or chills and her symptoms have improved will monitor and plan. Subjective Date/time seen: 09/22/23 12:19 Interval history: patient state since start of antibiotics her symptoms have improved, as patient has multi-drug resistant UTI with Morganella morganii, urine culture taken at the hospital still pending, patient will require abx based on urine culture will follow up. today patient complaints of pain and swelling right lower extremities, dopplor US was ordered to r/o DVT and it is negative. patient denies any fever or chills and her symptoms have improved will monitor and plan. Review of Systems Review of Systems: All systems reviewed & are unremarkable except as noted in HPI and below Cardiovascular: Cardiovascular: Reports no additional cardiovascular complaints Respiratory: Respiratory: Reports no additional respiratory complaints Musculoskeletal: Musculoskeletal: Reports no additional musculoskeletal complaints Integumentary/Breasts: Skin/Breast: Reports system reviewed and no additional complaints, except as docu Exam Narrative: Patient is comfortable, NAD HEENT: eyes are clear and none icteric LUNGS:CTA HEART: RR S1S2 ABD: BS+, Soft and nontender Lower extremities: no edema SKIN: nonjaundiced Neuro: grossly intact. Objective Data Vital Signs Vital Signs: Vital Signs - 24 hr 09/21/23 14:00 09/21/23 15:24 09/21/23 16:00 Temperature 36.3 C L 36.7 C Pulse Rate 58 L 58 L Respiratory Rate 16 16 Blood Pressure 133/59 L 133/59 L Pulse Oximetry 96 96 Oxygen Delivery Room Air 09/21/23 20:36 09/21/23 20:00 09/22/23 00:00 Temperature 36.6 C 35.9 C L Pulse Rate 77 67 Respiratory Rate 20 20 Blood Pressure 144/65 H 138/66 Pulse Oximetry 95 94 Oxygen Delivery Room Air 09/22/23 06:00 09/22/23 08:25 09/22/23 08:30 Temperature 36.4 C Pulse Rate 68 67 Respiratory Rate 20 18 Blood Pressure 152/71 H 164/83 H Pulse Oximetry 93 97 98 Oxygen Delivery Room Air 09/22/23 08:43 09/22/23 08:43 Temperature Pulse Rate 65 Respiratory Rate Blood Pressure Pulse Oximetry Oxygen Delivery Room Air Intake/Output Intake/Output: Intake & Output 09/19/23 09/20/23 09/21/23 09/22/23 23:59 23:59 23:59 23:59 Intake Total 50 2550 1497.5 Output Total 2020 1900 Balance 50 530 -402.5 Meds/Results Medications: Active Medications Generic Name Dose Route Start Last Admin Trade Name Freq PRN Reason Stop Dose Admin Acetaminophen 650 mg 09/21/23 02:49 09/22/23 01:30 Acetaminophen 325 Mg Tablet PO 650 mg Q4H PRN Administration Mild Pain (1-3) or Fever Acetaminophen 650 mg 09/22/23 08:09 09/22/23 10:17 Acetaminophen 325 Mg Tablet PO 650 mg Q6H PRN Administration Back Pain Estrogens Conjugated 1 applic 09/22/23 09:00 Estrogens, Conjugated Vaginal Cream 30 Gm VAGINAL Q48H RILEY Cefepime HCl 1 gm in 50 mls @ 100 mls/hr 09/21/23 09:00 09/22/23 08:32 Maxipime 1 Gm/Ns 50 Ml IVPB 100 mls/hr Q12H RILEY Administration Lactated Ringer's 1,000 mls @ 75 mls/hr 09/20/23 21:30 09/22/23 02:56 Lr - Lactated Ringers Iv IV CONT 75 mls/hr .[id number] RILEY Administration Ibuprofen 600 mg 09/21/23
[2023-09-23] MEDS: PREGABALIN (*CRX) 50 MG CAPSULE 100 MG PO ×4 (03:04→21:06)
[2023-09-23] MEDS: ACETAMINOPHEN 325 MG TABLET 650 MG PO ×3 (03:04→21:06)
[2023-09-23 05:00] LABS: Hematocrit 41.8 % (37.0-47.0); Hemoglobin 13.9 g/dL (12.0-15.0); Mean Corpuscular HGB Conc 33.3 g/dl (32-36); Mean Corpuscular Hemoglobin 30.5 pg (26-34); Mean Corpuscular Volume 91.7 fl (80-100); Mean Platelet Volume 9.9 fl (7.4-10.4); Platelet Count Result 193 k/mm3 (150-375); Red Blood Count 4.56 M/mm3 (4.2-5.4); Red Cell Distribution Width 13.8 % (11.5-14.5); White Blood Count 4.3 K/mm3 (4.5-10.0)
[2023-09-23 05:09] VITALS: BP 156/66; PULSE 66; RESP 18; TEMP 36.7; O2SAT 96
[2023-09-23] MEDS: IBUPROFEN 600 MG TABLET PO ×2 (05:11→12:39)
[2023-09-23] MEDS: LEVOTHYROXINE SODIUM 125 MCG TABLET PO (05:11)
[2023-09-23 05:13] LABS: Anion Gap 6 mmol/L (4-12); Blood Urea Nitrogen 13 mg/dL (7-17); Calcium 9.6 mg/dL (8.4-10.2); Carbon Dioxide 30 mmol/L (22-30); Chloride 104 mmol/L (98-107); Estimated CRCL calculation 87 ml/min; Estimated Glomerular Filt Rate > 60; Glucose 123 mg/dL (65-110); Potassium 3.8 mmol/L (3.4-5.0); Sodium 140 mmol/L (137-145)
[2023-09-23] MEDS: LACTATED RINGERS 1,000 ML 75 ML IV CONT (06:33)
[2023-09-23] MEDS: MEROPENEM 1 GM/NS 100 ML 1 GM/100 ML BAG IVPB ×3 (08:50→21:07)
[2023-09-23 08:58] VITALS: BP 168/53; PULSE 67; RESP 16; O2SAT 99
[2023-09-23 09:01] VITALS: PULSE 66
[2023-09-23] MEDS: METOPROLOL SUCCINATE EXT REL 50 MG TABCR PO (09:01)
[2023-09-23] MEDS: PRAVASTATIN SODIUM 10 MG TABLET PO (09:02)
[2023-09-23] MEDS: polyethylene glycoL 3350 17 GM POWD.PACK PO (09:02)
--- NOTE | 2023-09-23 12:08 | PM.IMPN ---
Progress Note: A&P Assessment and Plan (1) Acute UTI: Code(s): N39.0 - Urinary tract infection, site not specified Status: Acute Assessment and Plan: UCx listed in the chart showing Morganella sensitive to Cefepime and Meropenem. Repeat UCx here growing Morganella and Klebsiella. Since ESBL Morganella, will change to meropenem Follow up on sensitivities and adjust abx accordingly (2) MDRO (multiple drug resistant organisms) resistance: Status: Acute Assessment and Plan: As above (3) Change in bowel habits: Code(s): R19.4 - Change in bowel habit Status: Acute Assessment and Plan: Patient still complains of having constipation. Continue miralax for now Plan Rt LE pain and swelling - dopplor US was negative for DVT Subjective Date/time seen: 09/23/23 12:08 Interval history: 83yo female with AFib, pHTN, frequent UTIs and recent urologic treatments for incontinence here for UTI. Patient has had multiple urologic procedures for incontinence. Recently had UTI that was MDRO. Culture result in the chart. Still having dysuria. 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 Walks with walker normally. Has chronic LBP but worse eraly morning. No n/v. Eating okay. Exam Narrative: AF 98.0 168/53 66 16 99% ra Gen - NARD Chest - CTA bilaterally, nml RR CV - RRR S1/S2 Abd - Soft, obese, NT Ext - No pedal edema Psych - Nml mood and affect Skin - Warm and dry Objective Data Vital Signs Vital Signs: Vital Signs - 24 hr 09/22/23 14:00 09/22/23 20:42 09/22/23 20:00 Temperature 97.6 F 98.1 F Pulse Rate 57 L 63 63 Respiratory Rate 16 18 18 Blood Pressure 132/80 149/60 H Pulse Oximetry 98 97 97 Oxygen Delivery Room Air 09/23/23 05:09 09/23/23 08:58 09/23/23 09:01 Temperature 98.0 F Pulse Rate 66 67 66 Respiratory Rate 18 16 Blood Pressure 156/66 H 168/53 H Pulse Oximetry 96 99 Oxygen Delivery 09/23/23 09:12 Temperature Pulse Rate Respiratory Rate Blood Pressure Pulse Oximetry Oxygen Delivery Room Air Intake/Output Intake/Output: Intake & Output 09/20/23 09/21/23 09/22/2309/22/24 23:59 23:59 23:59 23:59 Intake Total 50 2550 3077.5 1730 Output Total 7033 4988 1300 Balance 50 530 327.5 430 Meds/Results Medications: Active Medications Generic Name Dose Route Start Last Admin Trade Name Freq PRN Reason Stop Dose Admin Acetaminophen 650 mg 09/21/23 02:49 09/22/23 01:30 Acetaminophen 325 Mg Tablet PO 650 mg Q4H PRN Administration Mild Pain (1-3) or Fever Acetaminophen 650 mg 09/22/23 08:09 09/23/23 09:09 Acetaminophen 325 Mg Tablet PO 650 mg Q6H PRN Administration Back Pain Estrogens Conjugated 1 applic 09/22/23 09:00 09/22/23 17:05 Estrogens, Conjugated Vaginal Cream 30 Gm VAGINAL 1 applic Q48H RILEY Administration Meropenem 1 gm in 100 mls @ 200 mls/hr 09/23/23 07:40 09/23/23 09:20 IVPB Infused Q8HR RILEY Infusion Ibuprofen 600 mg 09/21/23 08:34 09/23/23 05:11 Ibuprofen 600 Mg Tablet PO 600 mg Q6H PRN Administration Pain Rated 1-3 Levothyroxine Sodium 125 mcg 09/21/23 06:30 09/23/23 05:11 Levothyroxine Sodium 125 Mcg Tablet PO 125 mcg DAILY@0630 RILEY Administration Metoprolol Succinate 50 mg 09/21/23 09:00 09/23/23 09:01 Metoprolol Succinate Ext Rel 50 Mg Tabcr PO 50 mg DAILY RILEY Administration * Home Med * 75 mg 09/21/23 09:00 09/23/23 09:03 Vibegron [Gemtesa] PO 10/21/23 08:59 75 mg 75 Mg Tablet DAILY RILEY Administration * Home Med * 1 drop 09/21/23 09:00 09/23/23 08:54 Lifitegrast [Xiidra] EACH EYE 10/21/23 08:59 1 drop 5 % Dropperette BID RILEY Administration * Home Med * 1 each 09/21/23 09:35 09/23/23 09:02 Omeprazole 20 Mg PO 10/21/23 09:34 1 each Capsule DAILY RILEY Administration Polyethylene Glycol 17 gm 09/22/23 09:00 09/23/23 09:02 Polyethylene Glycol 3350 17 Gm Pow
[2023-09-23 13:53] VITALS: BP 131/62; PULSE 63; RESP 17; TEMP 36.5; O2SAT 100
[2023-09-23 20:00] VITALS: PULSE 90; RESP 20; O2SAT 94
[2023-09-23 20:58] VITALS: BP 127/61; PULSE 90; RESP 20; TEMP 36.5; O2SAT 94
[2023-09-24] VITALS (7 sets, daily range): BP systolic 117–156; BP diastolic 47–87; PULSE 61–88; RESP 16–20; TEMP 36.2–36.6; O2SAT 94–100
[2023-09-24] MEDS: IBUPROFEN 600 MG TABLET PO ×2 (03:30→21:24)
[2023-09-24] MEDS: PREGABALIN (*CRX) 50 MG CAPSULE 100 MG PO ×4 (03:30→21:23)
[2023-09-24 05:22] LABS: Hematocrit 42.2 % (37.0-47.0); Hemoglobin 13.6 g/dL (12.0-15.0); Mean Corpuscular HGB Conc 32.2 g/dl (32-36); Mean Corpuscular Hemoglobin 29.8 pg (26-34); Mean Corpuscular Volume 92.3 fl (80-100); Platelet Count Result 195 k/mm3 (150-375); Red Blood Count 4.57 M/mm3 (4.2-5.4); Red Cell Distribution Width 13.8 % (11.5-14.5)
[2023-09-24 05:41] LABS: Anion Gap 5 mmol/L (4-12); Blood Urea Nitrogen 16 mg/dL (7-17); Calcium 9.6 mg/dL (8.4-10.2); Carbon Dioxide 30 mmol/L (22-30); Chloride 102 mmol/L (98-107); Estimated CRCL calculation 76 ml/min; Estimated Glomerular Filt Rate > 60; Glucose 136 mg/dL (65-110); Magnesium 2.1 mg/dL (1.6-2.3); Sodium 137 mmol/L (137-145)
[2023-09-24] MEDS: MEROPENEM 1 GM/NS 100 ML 1 GM/100 ML BAG IVPB ×3 (05:46→21:23)
[2023-09-24] MEDS: LEVOTHYROXINE SODIUM 125 MCG TABLET PO (05:46)
[2023-09-24] MEDS: ARTIFICIAL TEARS OPHTH SOLN 15 ML BOTTLE 1 DROP EACH EYE ×2 (08:43→21:23)
[2023-09-24] MEDS: METOPROLOL SUCCINATE EXT REL 50 MG TABCR PO (08:44)
[2023-09-24] MEDS: polyethylene glycoL 3350 17 GM POWD.PACK PO (08:45)
[2023-09-24] MEDS: PRAVASTATIN SODIUM 10 MG TABLET PO (08:46)
[2023-09-24] MEDS: LIDOCAINE HCL 1% LOCAL INJ 2 ML AMPUL 5 ML INFILTRATE (09:45)
[2023-09-24] MEDS: ACETAMINOPHEN 325 MG TABLET 650 MG PO ×2 (12:45→17:27)
[2023-09-24] MEDS: SALINE LOCK FLUSH 10 ML IV PUSH ×2 (14:02→21:23)
--- NOTE | 2023-09-24 15:09 | PM.IMPN ---
Progress Note: A&P Assessment and Plan (1) Acute UTI: Code(s): N39.0 - Urinary tract infection, site not specified Status: Acute Assessment and Plan: UCx listed in the chart showing Morganella sensitive to Cefepime and Meropenem. Repeat UCx here growing Morganella and Klebsiella. Started on Cefepime but changed to meropenem 09/22 Sensitivities now listed confirming ESBL Morganella here. Place midline. Change to Ertapenem. Arrange for home IV abx. (2) MDRO (multiple drug resistant organisms) resistance: Status: Acute Assessment and Plan: As above (3) Change in bowel habits: Code(s): R19.4 - Change in bowel habit Status: Acute Assessment and Plan: Patient having BMs. Continue miralax Plan Rt LE pain and swelling - bilateral dopplor US was negative for DVT. DVT prophylaxis - SCDs. Add Lovenox Code status - full Subjective Date/time seen: 09/24/23 15:09 Interval history: 83yo female with AFib, pHTN, frequent UTIs and recent urologic treatments for incontinence here for UTI. No issues overnight. Still having some dysuria but has improved. Having bowel movements now. Exam Narrative: AF 97.1 117/47 88 17 100% ra Gen - NARD Chest - CTA bilaterally, nml RR CV - RRR S1/S2 Abd - Soft, obese, NT Ext - trace pedal edema Psych - Nml mood and affect Skin - Warm and dry Objective Data Vital Signs Vital Signs: Vital Signs - 24 hr 09/23/23 20:58 09/23/23 20:00 09/24/23 00:00 Temperature 97.7 F 97.7 F Pulse Rate 90 90 63 Respiratory Rate 20 20 20 Blood Pressure 127/61 137/52 L Pulse Oximetry 94 94 94 Oxygen Delivery Room Air 09/24/23 04:03 09/24/23 08:42 09/24/23 08:44 Temperature 97.8 F Pulse Rate 61 73 73 Respiratory Rate 20 16 Blood Pressure 154/54 H 156/87 H Pulse Oximetry 96 99 Oxygen Delivery 09/24/23 08:45 09/24/23 13:34 09/24/23 13:45 Temperature 97.1 F L 97.1 F L Pulse Rate 88 Respiratory Rate 17 Blood Pressure 117/47 L Pulse Oximetry 100 Oxygen Delivery Room Air Intake/Output Intake/Output: Intake & Output 09/21/23 09/22/23 09/23/23 09/24/23 23:59 23:59 23:59 23:59 Intake Total 2550 3077.5 2890 1010 Output Total 2019 2750 2650 1800 Balance 530 327.5 240 -790 Meds/Results Medications: Active Medications Generic Name Dose Route Start Last Admin Trade Name Freq PRN Reason Stop Dose Admin Acetaminophen 650 mg 09/21/23 02:49 09/24/23 12:45 Acetaminophen 325 Mg Tablet PO 650 mg Q4H PRN Administration Mild Pain (1-3) or Fever Acetaminophen 650 mg 09/22/23 08:09 09/23/23 21:06 Acetaminophen 325 Mg Tablet PO 650 mg Q6H PRN Administration Back Pain Artificial Tears 1 drop 09/24/23 08:00 09/24/23 08:43 Artificial Tears Ophth Soln 15 Ml Bottle EACH EYE 1 drop Q12H RILEY Administration Estrogens Conjugated 1 applic 09/22/23 09:00 09/24/23 08:43 Estrogens, Conjugated Vaginal Cream 30 Gm VAGINAL 1 applic Q48H RILEY Administration Meropenem 1 gm in 100 mls @ 200 mls/hr 09/23/23 07:40 09/24/23 14:02 IVPB 09/24/23 23:50 200 mls/hr Q8HR RILEY Administration Ertapenem 1 gm in 50 mls @ 100 mls/hr 09/25/23 06:00 Invanz 1 Gm/Ns 50 Ml IVPB Q24H RILEY Ibuprofen 600 mg 09/21/23 08:34 09/24/23 03:30 Ibuprofen 600 Mg Tablet PO 600 mg Q6H PRN Administration Pain Rated 1-3 Levothyroxine Sodium 125 mcg 09/21/23 06:30 09/24/23 05:46 Levothyroxine Sodium 125 Mcg Tablet PO 125 mcg DAILY@0630 RILEY Administration Metoprolol Succinate 50 mg 09/21/23 09:00 09/24/23 08:44 Metoprolol Succinate Ext Rel 50 Mg Tabcr PO 50 mg DAILY RILEY Administration * Home Med * 75 mg 09/21/23 09:00 09/24/23 08:47 Vibegron [Gemtesa] PO 10/21/23 08:59 75 mg 75 Mg Tablet DAILY RILEY Administration * Home Med * 1 drop 09/21/23 09:00 08/05/24 18:36 Lifitegrast [Xiidra] EACH EYE 10/21/23 08:59 1 drop
[2023-09-24] MEDS: ENOXAPARIN 40 MG/0.4 ML SYRINGE SUB-Q (17:26)
[2023-09-25] VITALS: BP 168/77; PULSE 65; RESP 20; TEMP 36.6; O2SAT 92
[2023-09-25 04:45] VITALS: BP 120/48; PULSE 60; RESP 20; TEMP 36.5; O2SAT 96
[2023-09-25] MEDS: IBUPROFEN 600 MG TABLET PO ×3 (05:13→20:08)
[2023-09-25] MEDS: SALINE LOCK FLUSH 10 ML IV PUSH ×3 (05:14→20:08)
[2023-09-25] MEDS: ERTAPENEM 1 GM/NS 50 ML 1 GM/50 ML BAG IVPB (05:14)
[2023-09-25] MEDS: LEVOTHYROXINE SODIUM 125 MCG TABLET PO (05:15)
[2023-09-25 05:52] LABS: Hematocrit 41.7 % (37.0-47.0); Hemoglobin 13.1 g/dL (12.0-15.0); Mean Corpuscular HGB Conc 31.4 g/dl (32-36); Mean Corpuscular Volume 92.5 fl (80-100); Mean Platelet Volume 10.3 fl (7.4-10.4); Platelet Count Result 185 k/mm3 (150-375); Red Blood Count 4.51 M/mm3 (4.2-5.4); Red Cell Distribution Width 13.6 % (11.5-14.5)
[2023-09-25 06:02] LABS: Anion Gap 4 mmol/L (4-12); Blood Urea Nitrogen 15 mg/dL (7-17); Calcium 9.7 mg/dL (8.4-10.2); Carbon Dioxide 32 mmol/L (22-30); Chloride 102 mmol/L (98-107); Estimated CRCL calculation 87 ml/min; Estimated Glomerular Filt Rate > 60; Glucose 134 mg/dL (65-110); Magnesium 2.2 mg/dL (1.6-2.3); Sodium 138 mmol/L (137-145)
[2023-09-25] MEDS: ARTIFICIAL TEARS OPHTH SOLN 15 ML BOTTLE 1 DROP EACH EYE ×2 (07:57→20:08)
[2023-09-25 07:58] VITALS: PULSE 62
[2023-09-25] MEDS: PRAVASTATIN SODIUM 10 MG TABLET PO (07:58)
[2023-09-25] MEDS: METOPROLOL SUCCINATE EXT REL 50 MG TABCR PO (07:58)
[2023-09-25] MEDS: polyethylene glycoL 3350 17 GM POWD.PACK PO (07:58)
[2023-09-25] MEDS: ENOXAPARIN 40 MG/0.4 ML SYRINGE SUB-Q (07:58)
[2023-09-25] MEDS: PREGABALIN (*CRX) 50 MG CAPSULE 100 MG PO ×2 (07:59→20:07)
[2023-09-25 08:00] VITALS: O2SAT 96
[2023-09-25] MEDS: ACETAMINOPHEN 325 MG TABLET 650 MG PO ×3 (08:00→22:36)
--- NOTE | 2023-09-25 12:02 | PM.IMPN ---
Progress Note: A&P Assessment and Plan (1) Acute UTI: Code(s): N39.0 - Urinary tract infection, site not specified Status: Acute Assessment and Plan: UCx listed in the chart showing Morganella sensitive to Cefepime and Meropenem. Repeat UCx here growing Morganella and Klebsiella. Started on Cefepime but changed to meropenem 09/22 Sensitivities now listed confirming ESBL Morganella here. Place midline. Change to Ertapenem. Arrange for home IV abx. until (2) MDRO (multiple drug resistant organisms) resistance: Status: Acute Assessment and Plan: As above (3) Change in bowel habits: Code(s): R19.4 - Change in bowel habit Status: Acute Assessment and Plan: Patient having BMs. Continue miralax Plan PT/ OT ordered therapy evaluation prior to DC DVT prophylaxis - SCDs. Add Lovenox Code status - full Subjective Date/time seen: 09/25/23 12:02 Interval history: 83yo female with AFib, pHTN, frequent UTIs and recent urologic treatments for incontinence here for UTI. Pt has multidrug resistance, pt to continue on iv ABX until 09/28 Can have picc line and dc with outpatient ABX after PT/ OT evaluation Review of Systems Review of Systems: Pt feels weak to walk otherwise no complaints Exam Narrative: Gen - Elderly lady very pleasant Chest - CTA bilaterally, nml RR CV - RRR S1/S2 Abd - Soft, obese, NT Ext - trace pedal edema Psych - Nml mood and affect Skin - Warm and dry Objective Data Vital Signs Vital Signs: Vital Signs - 24 hr 09/24/23 13:34 09/24/23 13:45 09/24/23 20:18 Temperature 36.2 C L 36.2 C L 36.5 C Pulse Rate 88 63 Respiratory Rate 17 20 Blood Pressure 117/47 L 133/58 L Pulse Oximetry 100 95 Oxygen Delivery 09/25/23 00:00 09/24/23 21:24 09/25/23 04:45 Temperature 36.6 C 36.5 C Pulse Rate 65 60 Respiratory Rate 20 20 Blood Pressure 168/77 H 120/48 L Pulse Oximetry 92 96 Oxygen Delivery Room Air 09/25/23 07:58 09/25/23 08:00 Temperature Pulse Rate 62 Respiratory Rate Blood Pressure Pulse Oximetry 96 Oxygen Delivery Room Air Intake/Output Intake/Output: Intake & Output 09/22/23 09/23/23 09/24/23 09/25/23 23:59 23:59 23:59 23:59 Intake Total 3077.5 2890 1670 530 Output Total 2750 2650 2500 1850 Balance 327.5 145 -734 -2050 Meds/Results Medications: Active Medications Generic Name Dose Route Start Last Admin Trade Name Freq PRN Reason Stop Dose Admin Acetaminophen 650 mg 09/21/23 02:49 09/25/23 08:00 Acetaminophen 325 Mg Tablet PO 650 mg Q4H PRN Administration Mild Pain (1-3) or Fever Acetaminophen 650 mg 09/22/23 08:09 09/23/23 21:06 Acetaminophen 325 Mg Tablet PO 650 mg Q6H PRN Administration Back Pain Artificial Tears 1 drop 09/24/23 08:00 09/25/23 07:57 Artificial Tears Ophth Soln 15 Ml Bottle EACH EYE 1 drop Q12H RILEY Administration Enoxaparin Sodium 40 mg 09/25/23 09:00 09/25/23 07:58 Enoxaparin 40 Mg/0.4 Ml Syringe SUB-Q 40 mg DAILY RILEY Administration Estrogens Conjugated 1 applic 09/22/23 09:00 09/24/23 08:43 Estrogens, Conjugated Vaginal Cream 30 Gm VAGINAL 1 applic Q48H RILEY Administration Ertapenem 1 gm in 50 mls @ 100 mls/hr 09/25/23 06:00 09/25/23 05:44 Invanz 1 Gm/Ns 50 Ml IVPB 09/29/23 23:59 Infused Q24H RILEY Infusion Ibuprofen 600 mg 09/21/23 08:34 09/25/23 05:13 Ibuprofen 600 Mg Tablet PO 600 mg Q6H PRN Administration Pain Rated 1-3 Levothyroxine Sodium 125 mcg 09/21/23 06:30 09/25/23 05:15 Levothyroxine Sodium 125 Mcg Tablet PO 125 mcg DAILY@0630 RILEY Administration Metoprolol Succinate 50 mg 09/21/23 09:00 09/25/23 07:58 Metoprolol Succinate Ext Rel 50 Mg Tabcr PO 50 mg DAILY RILEY Administration * Home Med * 75 mg 09/21/23 09:00 09/25/23 07:59 Vibegron [Gemtesa] PO 10/21/23 08:59 75 mg 75 Mg Tablet DAILY RILEY
--- NOTE | 2023-09-25 13:58 | PCOTNOTE ---
Corrected canceled OT orders, reordering pt. frequency for treatment 2-3x/wk, with continuation of care plan
[2023-09-25 14:00] VITALS: BP 153/55; PULSE 60; RESP 16; TEMP 36.1; O2SAT 98
[2023-09-25 22:00] VITALS: BP 134/58; PULSE 64; RESP 18; TEMP 36.4; O2SAT 95
[2023-09-26] VITALS: BP 142/50; PULSE 60; RESP 18; TEMP 36.4; O2SAT 97
[2023-09-26] MEDS: IBUPROFEN 600 MG TABLET PO ×2 (04:44→11:44)
[2023-09-26 06:00] VITALS: BP 150/52; PULSE 64; RESP 18; TEMP 36.4; O2SAT 98
[2023-09-26] MEDS: LEVOTHYROXINE SODIUM 125 MCG TABLET PO (06:05)
[2023-09-26] MEDS: ERTAPENEM 1 GM/NS 50 ML 1 GM/50 ML BAG IVPB (06:09)
[2023-09-26] MEDS: SALINE LOCK FLUSH 10 ML IV PUSH (06:10)
[2023-09-26 06:38] LABS: Hematocrit 43.5 % (37.0-47.0); Hemoglobin 13.7 g/dL (12.0-15.0); Mean Corpuscular HGB Conc 31.5 g/dl (32-36); Mean Corpuscular Hemoglobin 29.3 pg (26-34); Mean Corpuscular Volume 92.9 fl (80-100); Mean Platelet Volume 10.1 fl (7.4-10.4); Platelet Count Result 206 k/mm3 (150-375); Red Blood Count 4.68 M/mm3 (4.2-5.4); Red Cell Distribution Width 13.7 % (11.5-14.5)
[2023-09-26 06:46] LABS: Anion Gap 8 mmol/L (4-12); Blood Urea Nitrogen 20 mg/dL (7-17); Calcium 9.7 mg/dL (8.4-10.2); Carbon Dioxide 30 mmol/L (22-30); Chloride 101 mmol/L (98-107); Estimated CRCL calculation 76 ml/min; Estimated Glomerular Filt Rate > 60; Glucose 110 mg/dL (65-110); Magnesium 2.1 mg/dL (1.6-2.3); Sodium 139 mmol/L (137-145)
[2023-09-26 08:00] VITALS: O2SAT 98
[2023-09-26] MEDS: PANTOPRAZOLE 40 MG TABLET PO (08:01)
[2023-09-26] MEDS: ARTIFICIAL TEARS OPHTH SOLN 15 ML BOTTLE 1 DROP EACH EYE (09:04)
[2023-09-26] MEDS: ENOXAPARIN 40 MG/0.4 ML SYRINGE SUB-Q (09:05)
[2023-09-26 09:06] VITALS: PULSE 70
[2023-09-26] MEDS: PRAVASTATIN SODIUM 10 MG TABLET PO (09:06)
[2023-09-26] MEDS: METOPROLOL SUCCINATE EXT REL 50 MG TABCR PO (09:06)
[2023-09-26] MEDS: PREGABALIN (*CRX) 50 MG CAPSULE 100 MG PO (09:07)
[2023-09-26] MEDS: ACETAMINOPHEN 325 MG TABLET 650 MG PO ×2 (09:09→14:44)
--- NOTE | 2023-09-26 11:04 | PM.DS ---
DS: Admitting Diagnosis Discharge Date 09/26/2023 Admitting Diagnosis [id number] DS: Discharge Diagnosis Discharge Diagnosis (1) Acute UTI: Code(s): N39.0 - Urinary tract infection, site not specified Status: Acute Assessment and Plan: UCx listed in the chart showing Morganella sensitive to Cefepime and Meropenem. Repeat UCx here growing Morganella and Klebsiella. Started on Cefepime but changed to meropenem 09/22 Sensitivities now listed confirming ESBL Morganella here. Place midline. Change to Ertapenem. Arrange for SNF placement and IV abx. until (2) MDRO (multiple drug resistant organisms) resistance: Status: Acute Assessment and Plan: As above (3) Change in bowel habits: Code(s): R19.4 - Change in bowel habit Status: Acute Assessment and Plan: Patient having BMs. Continue miralax Plan PT/ OT ordered therapy evaluation prior to DC DVT prophylaxis - SCDs. Add Lovenox Code status - full DS: Summary Hospital Course Hospital Course: 83yo female with AFib, pHTN, frequent UTIs and recent urologic treatments for incontinence here for UTI. Pt has multidrug resistance, pt to continue on iv ABX until 09/28 Can have picc line and dc to SNF with IV ABX after PT/ OT evaluation Time Spent with Patient Time attestation: Total time spent providing and/or coordinating discharge services:50 minutes on day of dc Exam Narrative: Gen - Elderly lady very pleasant Chest - CTA bilaterally, nml RR CV - RRR S1/S2 Abd - Soft, obese, NT Ext - trace pedal edema Psych - Nml mood and affect Skin - Warm and dry DS: Data Data Completed and Pending Labs on day of discharge: Labs from last 24 hours 09/26/23 09/26/23 06:17 06:16 WBC 4.0 L RBC 4.68 Hgb 13.7 Hct 43.5 MCV 92.9 MCH 29.3 MCHC 31.5 L RDW 13.7 Plt Count 206 MPV 10.1 Sodium 139 Potassium 4.0 Chloride 101 Carbon Dioxide 30 Anion Gap 8 BUN 20 H Creatinine 0.70 Estim Creat Clear Calc 76 Estimated GFR > 60 Glucose 110 Calcium 9.7 Magnesium 2.1 Discharge Plan Discharge Attending physician on discharge: Zita Peace Discharging Clinician: Zita Peace Anticipated Discharge Date/Time: 09/26/23 10:58 Patient Disposition: SNF Activity: as tolerated Diet: heart healthy Discharge Instructions: Complete IV abx until 09/28 Patient Instructions: Pain Management (DC) Stand Alone Forms: General Discharge Information Follow-up/Referrals: PHYSICIAN NOT ON STAFF,NONSTAFF [Primary Care Provider] - Discharge Medications: New pantoprazole 40 mg Tablet,Delayed Release (Dr/Ec) 40 mg PO QAM Qty: 30 0RF ertapenem 1 gram recon soln 1 g IM Q24H Qty: 2 0RF Rx Instructions: stop at 09/28 Continued pregabalin [Lyrica] 100 mg capsule 100 mg PO DAILY omeprazole 20 mg capsule,delayed release(DR/EC) 20 mg PO DAILY furosemide 20 mg tablet 20 mg PO DAILY PRN (Reason: swelling) nystatin 100,000 unit/gram powder See Rx Instructions .ROUTE .COMPLEX Rx Instructions: to affected areas TID acetaminophen [Tylenol] 325 mg Capsule 650 mg PO PRN PRN (Reason: Back Pain) potassium chloride 10 mEq tablet extended release 10 meq PO PRN Rx Instructions: take with Lasix as needed Xiidra 5 % dropperette 2 drp EACH EYE BID ibuprofen 600 mg tablet 600 mg PO Q6H PRN (Reason: Pain) polyethylene glycol 3350 [Miralax] 17 gram/dose Powder 17 g PO DAILY pregabalin 100 mg capsule 100 mg PO TID Rx Instructions: takes last dose at bedtime 2100 metoprolol succinate 50 mg tablet extended release 24 hr 50 mg PO DAILY pravastatin 10 mg tablet 10 mg PO DAILY Premarin 0.625 mg/gram cream 1 applic vaginal EVERY OTHER DAY levothyroxine 125 mcg tablet 125 mcg PO DAILY clotrimazole-
[2023-09-26 12:43] LABS: SARS-CoV-2 RNA PCR Negative (Negative)
[2023-09-26 14:19] VITALS: BP 158/63; PULSE 68; RESP 17; TEMP 36.5; O2SAT 98
== END 2023-09-26 17:06 | DRG 690 ==
LOC: ANHED 21:31 → ANH2MED 22:25
PROVIDERS: Emergency Medicine; Family Medicine; Nurse Practitioner Family; Admitting Provider Internal Medicine; Emergency Provider Emergency Medicine; Visit Provider Family Medicine
DX: N39.0 Urinary tract infection, site not specified (principal); I48.20 Chronic atrial fibrillation, unspecified; B96.1 Klebsiella pneumoniae [K. pneumoniae] as the cause of diseases classified elsewhere; B96.89 Other specified bacterial agents as the cause of diseases classified elsewhere; R19.4 Change in bowel habit; E03.9 Hypothyroidism, unspecified; G47.33 Obstructive sleep apnea (adult) (pediatric); R32 Unspecified urinary incontinence; E66.9 Obesity, unspecified; Z98.890 Other specified postprocedural states; Z11.52 Encounter for screening for COVID-19; Z68.38 Body mass index [BMI] 38.0-38.9, adult; Z90.710 Acquired absence of both cervix and uterus
CPT/HCPCS: 36415; 36569; 71045; 80048; 80053; 81001; 83735; 85025; 85027; 87040; 87077; 87086; 87088; 87186; 87635; 93970; 96361; 96365; 96367; 97161; 97165; 97530; 97535; 99285; A9270; G0378; J0692; J1335; J1650; J2185; J7120

== ENCOUNTER 2023-11-23 10:16 | Outpatient (CLI) | payer MEDICARE, SELFPAY ==
--- NOTE | ~2023-11-23 | MR_ITS ---
MRI of the lumbar spine Clinical History: Radiculopathy Technique: Axial T2-weighted images, and sagittal T1-weighted, T2-weighted, and T2 fat-sat images wer e acquired. Findings: There is no fracture or subluxation of the lumbar spine. Vertebral bodies maintain normal h eight and alignment. There are type III Modic changes about the L2-L3 disc space due to underlying de generative disc disease. At L1-L2, there is no disc bulge or herniation. There is moderate facet hypertrophy. No spinal canal stenosis or neural foraminal narrowing. At L2-L3, there is advanced degenerative disc narrowing. There is diffuse disc bulge with advanced fa cet arthropathy, resulting in moderate spinal canal stenosis/thecal sac compression. Neural foramina are preserved. At L3-L4, there is mild degenerative disc narrowing. There is minimal disc bulge with severe facet ar thropathy. No brigitte central canal stenosis or neural foraminal narrowing. At L4-L5, there is moderate degenerative distended. There is diffuse disc bulge with severe facet art hropathy. No brigitte central canal stenosis. There is moderate right neural foraminal narrowing. Left n eural foramen preserved. At L5-S1, there is minimal disc bulge with advanced facet arthropathy. No central canal stenosis or n eural foraminal narrowing. Paravertebral soft tissues are unremarkable. Impression: Moderate degenerative spondylosis, as above, probably worst at and L2-L3 and L4-L5. Reviewed, dictated and finalized at [facility]. Impression: Moderate degenerative spondylosis, as above, probably worst at and L2-L3 and L4 -L5.
== END 2023-11-23 10:17 | disposition home or self-care (01) ==
LOC: MICIMG 10:18
PROVIDERS: PCP Anesthesiology; Visit Provider Anesthesiology
DX: M47.816 Spondylosis without myelopathy or radiculopathy, lumbar region (principal); M54.16 Radiculopathy, lumbar region
CPT/HCPCS: 72148

== ENCOUNTER 2024-02-27 14:45 | Outpatient (NON) | payer MEDICARE, SELFPAY ==
[2024-02-27 15:02] LABS: Add Urine Microscopic? YES; Appearance Urine Cloudy (Clear); Bilirubin Urine Negative (Negative); Blood Urine Negative (Negative); Color Urine Light Yellow (Yellow); Glucose Urine UA Negative (Negative); Ketones Urine Negative (Negative); Leukocyte Esterase Ur 2+ LEU/UL (Negative); Nitrate Urine Positive (Negative); Protein Urine Negative (Negative); Specific Grav Ur 1.015 (1.010-1.020)
[2024-02-27 15:08] LABS: RBC Urine None seen /hpf (0-2); Squamous Epithelial Cell Urine Moderate /hpf (Few); WBC Urine 31-50 /hpf (0-3)
[2024-02-27 15:09] LABS: Bacteria Urine 4+ /hpf
== END 2024-02-27 14:46 | disposition home or self-care (01) ==
LOC: CHSLAB 14:48 → CHSHH 15:22
PROVIDERS: PCP Anesthesiology; Visit Provider Physician Assistant
DX: R30.0 Dysuria (principal)
CPT/HCPCS: 81001; 87086; 87186

== ENCOUNTER 2024-08-08 15:39 | Emergency (ER) | payer MEDICARE, SELFPAY ==
--- NOTE | ~2024-08-08 | XR_ITS ---
XR chest 2V Ordering provider: Kimi Gonsalez MD History: 84 years Female with . weak, chills, best images possible . Comparison: September 20, 2023 FINDINGS: MEDIASTINUM: The cardiac silhouette is slightly enlarged. LUNGS: No infiltrates, effusions or pneumothorax. Slightly prominent markings bilaterally. OTHER: No free air under the diaphragm. Degenerative changes of the spine. IMPRESSION: No acute cardiopulmonary pathology. Reviewed, dictated and finalized at location A.
[2024-08-08 15:41] VITALS: BP 182/59; PULSE 97; RESP 16; TEMP 36.6; O2SAT 95
--- NOTE | 2024-08-08 15:52 | ECG_ITS ---
Test Date: 2024-08-08 16:28:08 Measurements Intervals [place] Rate: 90 P: 65 [place]: 194 QRS: -2 QRSD: 89 T: 65 QT: 317 QTc: 389 Interpretive Statements SINUS RHYTHM WITH OCCASIONAL SUPRAVENTRICULAR PREMATURE COMPLEXES NONSPECIFIC ST & T-WAVE ABNORMALITY- ANTEROLAT/HIGH LAT LEADS BASELINE ARTIFACT- I, II, AVR, AVL, AVF, V1-V6 BORDERLINE ECG No previous ECG available for comparison Electronically Signed On 08-08-2024 20:20:12 CDT by Ra Rivera D.O.
[2024-08-08 16:01] LABS: Basophils Percent Auto 0.6 % (0.2-1.2); Eosinophils Absolute Auto 0.2 K/mm3 (0-0.3); Eosinophils Percent Auto 2.9 % (0-4.4); Hematocrit 40.8 % (37.0-47.0); Hemoglobin 13.3 g/dL (12.0-15.0); Immature Granulocyte Absolute 0.02 K/mm3 (0.00-0.031); Immature Granulocyte Percent A 0.3 % (0-0.5); Lymphocytes Absolute Auto 1.63 K/mm3 (0.9-3.2); Lymphocytes Percent Auto 24.7 % (18.3-44.2); Mean Corpuscular HGB Conc 32.6 g/dl (32-36); Mean Corpuscular Hemoglobin 29.2 pg (26-34); Mean Corpuscular Volume 89.5 fl (80-100); Monocytes Absolute Auto 0.4 K/mm3 (0.1-0.6); Monocytes Percent Auto 6.4 % (2.6-8.5); Neutrophils Absolute Auto 4.3 K/mm3 (1.3-6.7); Neutrophils Percent Auto 65.1 % (45.5-73.1); Platelet Count Result 234 k/mm3 (150-375); Red Blood Count 4.56 M/mm3 (4.2-5.4); Red Cell Distribution Width 14.3 % (11.5-14.5); White Blood Count 6.6 K/mm3 (4.5-10.0)
--- NOTE | 2024-08-08 16:03 | ED.WEAKNESS ---
HPI - Weakness General Chief complaint: Weakness Stated complaint: sick case Time Seen by Provider: 08/08/24 15:48 Source: patient and RN notes reviewed Mode of arrival: EMS History of Present Illness HPI Narrative: Patient presents with multiple complaints. She reports weakness. She is also concerned swelling and blisters in bilateral lower extremities. She notes that she has had this worked up multiple times with numerous studies and everyone has a different answer or they say they don't know.She has appointment to see a vascular surgeon in August. She has been coughing but denies any chest pain abdominal pain. She has been having dry eyes and blurred vision for this she has been seeing a specialist. She also reports that she has dry ear syndrome. She reports that she is also hard of hearing. She uses her Rollator. She lives alone but notes that she has help. For her legs she has been applying Aloe, sprays, Epsom salts, Aquaphor Neosporin. She is also concerned about her frequent urination and her incontinence. She reports that she has been diagnosed with recurrent urinary tract infections and has been treated multiple x2 weeks ago. She initially reports she was getting 4 doses (every other day) of cetirizine but then states that it might have been ceftriaxone when this is given as an option. Not currently on antibiotics. She has been complaining of chills and diarrhea occurring for the last 3 days and also mouth sores occurring over the past same duration. Because of several of her chronic issues she is on Lyrica and she reports that she decided to try taking an additional dose of this medication but this made her dizzy. She has a new primary care physician to [place] and states that she has established with them and been seen. She reports that she has previously seen urology although not recently. Her only 2 new medications recently are azo and Lasix. Denies any fevers but has been having chills. Related Data Home Medications ?Medication ?Instructions ?Recorded ?Confirmed ?Last Taken ?Type pregabalin 100 mg capsule (Lyrica) 100 mg PO DAILY 06/17/20 09/20/23 08/11/23 21:00 History clotrimazole-betamethasone 1 1 applic topical DAILY PRN Itching 08/02/22 09/20/23 12/04/22 History %-0.05 % topical cream conjugated estrogens 0.625 mg/gram 1 applic vaginal EVERY OTHER DAY 08/02/22 09/20/23 12/02/22 History vaginal cream (Premarin) ergocalciferol (vitamin D2) 1,250 1,250 mcg PO WEEKLY 08/02/22 09/20/23 08/05/23 History mcg (50,000 unit) capsule levothyroxine 125 mcg tablet 125 mcg PO DAILY 08/02/22 09/20/23 08/12/23 08:00 History metoprolol succinate 50 mg 50 mg PO DAILY 08/02/22 09/20/23 09/20/23 History tablet,extended release 24 hr pravastatin 10 mg tablet 10 mg PO DAILY 08/02/22 09/20/23 08/12/23 08:00 History vibegron 75 mg tablet (Gemtesa) 75 mg PO DAILY 08/02/22 09/20/23 08/09/23 History acetaminophen 325 mg capsule 650 mg PO PRN PRN Back Pain 08/09/23 09/20/23 Unknown History (Tylenol) furosemide 20 mg tablet 20 mg PO DAILY PRN swelling 08/09/23 09/20/23 Unknown History nystatin 100,000 unit/gram topical See Rx Instructions .Route .COMPLEX 08/09/23 09/20/23 08/09/23 History powder potassium chloride 10 mEq 10 meq PO PRN 09/20/23 09/20/23 Unknown History tablet,extended release ibuprofen 600 mg tablet 600 mg PO Q6H PRN Pain 09/21/23 09/21/23 Unknown History lifitegrast 5 % eye drops in a 2 drp EACH EYE BID 09/21/23 09/21/23 Unknown History dropperette (Xiidra) polyethylene glycol 3350 17 17 g PO DAILY 09/21/23 09/21/23 Unknown History gram/dose oral powder (Miralax) pregabalin 100 mg capsule 100 mg PO TID 09/22/23 09/22/23 09/21/23 09:00 History Allergies Allergy/AdvReac Type Severity Reaction Status Date / Time atorvastatin Allergy Mild Muscle Pain Verified 08/08/24 15:50 ciprofloxacin Allergy Unknown Hives Verified 08/08/24 15:50 codeine Allergy Unknown UNKNOWN Verified 08/08/24 15:50 diltiazem Allergy Unknown Unknown Verified 08/08/24 15:50 Iodinated Contrast Media Allergy Unknown HIVES AND Verified 08/08/24 15:50 RASH isosorbide Allergy Unknown Unknown Verified 08/08/24 15:50 latex Allergy Unknown Rash Verified 08/08/24 15:50 levofloxacin Allergy Unknown Rash Verified 08/08/24 15:50 Mycobacterium Tuberculosis Allergy Unknown rash, a-fib Verified 08/08/24 15:50 (Tubercu (Mycobacterium Tuberculosis (Tuberculin PPD)) nitrofurantoin Allergy Unknown ITCH AND Verified 08/08/24 15:50 DIZZY Penicillins Allergy Unknown UTI Verified 08/08/24 15:50 prednisone Allergy Unknown Hives / Verified 08/08/24 15:50 Red Face Sulfa (Sulfonamide Allergy Unknown Anaphylactic Verified 08/08/24 15:50 Antibiotics) Shock PMFSH Past Medical History Medical History (Updated 08/09/24 @ 21:16 by Kimi Gonsalez MD) Hard of hearing Pulmonary hypertension Rhinitis Frequent urinary tract infections Hypothyroidism Shortness of Breath Obstructive sleep apnea Chronic atrial fibrillation Hypersomnia Obesity (BMI 30-39.9) SOB (shortness of breath) Sleep-disordered breathing Surgical History Surgical History History of hysterectomy Family History Family History Mother Carcinoma of colon Father Family history of emphysema, Onset Age: 60 Social History Social History Smoking status: Never smoker Second hand tobacco smoke exposure: No Alcohol intake: never Substance use: never Substance use type: does not use Do You Feel Safe in your Home?: Yes Lack of Transportation: No Lack of Food: Never True Current Housing: I Have Housing Concerned About Future Housing: No Difficulty Paying Gas/Electric Bills: No Difficulty Paying for Meds: No Currently Unemployed: No Education: Master's Degree or Higher Difficulty w/ Childcare or Family Care: No Living arrangements: alone Occupation/Education: retired Spiritual care concerns: No Exam Narrative: GENERAL: Well-appearing, well-nourished, and in no acute distress. HEAD: Normocephalic, atraumatic. EYES: Non injected, non icteric ENT: Nares clear, no rhinorrhea or epistaxis. Hard of hearing but can hear if spoken to slowly and facing patient without a mask on. NECK: Supple. No meningismus. CHEST: Speaking in full sentences. No respiratory distress. HEART: Regular rate and rhythm. . ABDOMEN: Obese but Soft, nondistended. No rigidity or guarding. Not peritoneal : Grossly normal external female genitalia EXTREMITIES: Normal range of motion. LE edema. Bilateral lower legs are erthematous and have appearance of venous stasis changes particularly along medial aspect of distal legs. Mildly warm to the touch though not significant when compared to adjacent tissue SKIN: Warm, dry. Occasional scattered small blisters on legs. NEURO: No focal deficits. Alert and oriented. Answering questions. Following commands. Normal speech without aphasia or dysarthria. PSYCH: Congruent mood and affect. Course Vital Signs Vital signs: Vital Signs Temperature 97.9 F 08/08/24 15:41 Pulse Rate 97 08/08/24 15:41 Respiratory Rate 16 08/08/24 15:41 Blood Pressure 182/59 H 08/08/24 15:41 Pulse Oximetry 95 08/08/24 15:41 Oxygen Delivery Room Air 08/08/24 15:41 Temperature 97.9 F 08/08/24 15:41 Pulse Rate 74 08/08/24 18:40 Respiratory Rate 18 08/08/24 18:40 Blood Pressure 157/57 H 08/08/24 18:40 Pulse Oximetry 99 08/08/24 18:40 Oxygen Delivery Room Air 08/08/24 15:41 MDM - Weakness MDM Narrative Medical decision making narrative: Patient presents with multiple complaints including bilateral lower extremity swelling and blisters, weakness, and frequent urination including incontinence. In the emergency department she is afebrile with vital signs notable for hypertension. Calcium only mildly elevated and in fact corrects to an improved 10.3 given albumin. Patient is requesting she receive her dose of metoprolol has she has not taken it today and she is concerned she will go into afib. Patient has bacteriuria as well as nitrate and leukocyte esterase positive urinalysis with white blood cells. Given she is symptomatic, this is reasonable to treat. Previous urine culture from February 2024 is reviewed which at that time grew both E coli and Klebsiella pneumoniae that were nearly pansensitive to all antibiotics tested (with the exception of cefazolin and indeterminant to Macrobid). Patient has an allergy to sulfa and ciprofloxacin/levofloxacin. She notes that she had been receiving every other day ceftriaxone injections outpatient 2 weeks ago. Her bilateral lower extremities do have some erythema and mild warmth though not frankly more so than surrounding skin (e.g. of the knees/distal thighs ) and typically cellulitis is not bilateral. Very mild elevation in proBNP but not to a degree to suggest acute heart failure based on reference range of the assay for patient's age. Patient's last dose of Tylenol was at a.m.. Patient will be given a combination medications for her pain. We had discussed admission but Patient does feel like if her pain were better under control in her legs, she would be fine to go home and do oral antibiotics as she states that she does not feel so weak that she cannot use her Rollator. To best cover both UTI and the possibility of cellulitis (although I more suspect vascular etiology and she has follow up with a vascular surgeon in August), will proceed with cephalosporin and patient given a 1st dose in the emergency department with the rest the course prescribed. Patient is observed ambulating using her Rollator by myself and she performs this successfully. Her urine has reflexed to culture. Otherwise stable for discharge. Advised her to keep her upcoming appointment with vascular surgery. Advised her to discontinue using Neosporin. Differential Diagnosis Differential diagnosis: Likely acute myocardial infarction, anemia, hypoglycemia, hypothyroidism, rhabdomyolysis, sepsis, dehydration and other (Drug reaction; [id number]-[id number] disease, HSV, herpangina, [place] Cal[place]/TEN; autoimmune; Bahcets, erythema multiforme; nutritional deficiencies; underlying GI or immunodeficiency issues; traumatic) Lab Data Attestation: I reviewed the patient's lab results. Lab results narrative: CBC unremarkable 08/08/24 15:54 08/08/24 15:54 Labs: Lab Results 08/08/24 08/08/24 Range/Units 15:54 16:24 WBC 6.6 (4.5-10.0) K/mm3 RBC 4.56 (4.2-5.4) M/mm3 Hgb 13.3 (12.0-15.0) g/dL Hct 40.8 (37.0-47.0) % MCV 89.5 (80-100) fl MCH 29.2 (26-34) pg MCHC 32.6 (32-36) g/dl RDW 14.3 (11.5-14.5) % Plt Count 234 (150-375) k/mm3 MPV 10.0 (7.4-10.4) fl Immature Gran % (Auto) 0.3 (0-0.5) % Neut % (Auto) 65.1 (45.5-73.1) % Lymph % (Auto) 24.7 (18.3-44.2) % Bucks % (Auto) 6.4 (2.6-8.5) % Eos % (Auto) 2.9 (0-4.4) % Baso % (Auto) 0.6 (0.2-1.2) % Lymph # (Auto) 1.63 (0.9-3.2) K/mm3 Bucks # (Auto) 0.4 (0.1-0.6) K/mm3 Eos # (Auto) 0.2 (0-0.3) K/mm3 Baso # (Auto) 0.0 (0.0-0.1) K/mm3 Abs Immat Gran (auto) 0.02 (0.00-0.031) K/mm3 Absolute Neuts (auto) 4.3 (1.3-6.7) K/mm3 Absolute Nucleated RBC 0.000 (0.0-0.012) K/mm3 Nucleated RBC % 0.0 (0.0-0.2) % Sodium 139 (137-145) mmol/L Potassium 4.0 (3.4-5.0) mmol/L Chloride 106 (98-107) mmol/L Carbon Dioxide 25 (22-30) mmol/L Anion Gap 8 (4-12) mmol/L BUN 11 D (7-17) mg/dL Creatinine 0.62 L (0.7-1.0) mg/dL Estim Creat Clear Calc 85 ml/min Estimated GFR > 60 (59 - ) Glucose 109 (65-110) mg/dL Calcium 10.5 H (8.4-10.2) mg/dL Magnesium 2.0 (1.6-2.3) mg/dL Total Bilirubin 0.5 (0.2-1.3) mg/dL AST 27 (14-36) U/L ALT 23 (6-35) U/L Alkaline Phosphatase 105 (38-126) U/L Total Creatine Kinase 39 (30-135) U/L Troponin I < 0.012 (0.000-0.034) ng/mL NT-Pro-B Natriuret Pep 141 H (19.9-100) pg/mL Total Protein 7.5 (6.3-8.2) g/dL Albumin 4.2 (3.5-5.1) g/dL TSH 1.350 (0.465-4.680) uIU/mL Urine Color Dark yellow (Yellow) Urine Appearance Clear (Clear) Urine pH 7.0 (5.0-9.0) Ur Specific [place] 1.004 (1.001-1.035) Urine Protein Negative (Negative) mg/dL Urine Glucose (UA) Negative (Negative) mg/dL Urine Ketones Negative (Negative) mg/dL Ur Blood (Man) Negative (Negative) Urine Nitrate Positive H (Negative) Urine Bilirubin Negative (Negative) Urine Urobilinogen 1.0 (<2.0) mg/dL Leukocyte Esterase Rfl 2+ H (Negative) ELO/UL Urine RBC 0-2 (0-2) /hpf Urine WBC 6-10 H (0-3) /hpf Ur Squamous Epith Cells None seen (Few) /hpf Urine Bacteria 3+ H /hpf Urine Casts 0-2 Influenza A (RT-PCR) Negative (Negative) Influenza B (RT-PCR) Negative (Negative) RSV (RT-PCR) Negative (Negative) SARS-CoV-2 RNA (RT-PCR) Negative (Negative) Imaging Data Radiologist's impression: IMPRESSION: No acute cardiopulmonary pathology. ECG Data EKG #1: Attestation: I personally reviewed and interpreted this ECG as follows: ECG completion date: 08/08/24 ECG completion time: 16:28 Interpretation: Normal sinus rhythm at a rate of 90 beats per minute. Occasional premature complex. LA interval 194. QRS 89. QT/QTC 370/365. Good R-wave progression across the precordial leads. No T-wave inversion. Discharge Plan Discharge Clinical Impression: UTI (urinary tract infection), Lower extremity pain, bilateral, Mouth sores Patient Disposition: Home Condition: Stable Instructions: Antibiotic Form, Leg Pain (ED), Urinary Tract Infection in Older Adults (ED) Additional Instructions: You received the 1st dose of antibiotic in the emergency department IV and the rest of the course has been prescribed as oral medication. Take the entire course of this as it will hopefully treat both the UTI and cover leg infection although it appears this is more due to vascular issue and you have an upcoming appointment with a vascular surgeon. Keep all of your upcoming appointments you have scheduled with your doctors/specialists. Return to the emergency department any new worsening or unmanaged symptoms as this may represent the need for admission for IV antibiotics, etc. Continue taking all of your medications as prescribed. Acetaminophen/Tylenol (maximum 4000 mg per day) is safe to take with NSAIDs (ibuprofen/Motrin) for pain relief. Patient Language: Bermudian Prescriptions: New cephalexin 500 mg capsule 500 mg PO Q6H 5 Days Qty: 20 0RF ibuprofen 600 mg tablet 600 mg PO TID PRN (Reason: pain) Qty: 30 0RF acetaminophen 500 mg capsule 1,000 mg PO Q6H PRN (Reason: pain) Qty: 30 0RF No Action pregabalin [Lyrica] 100 mg capsule 100 mg PO DAILY furosemide 20 mg tablet 20 mg PO DAILY PRN (Reason: swelling) nystatin 100,000 unit/gram powder See Rx Instructions .ROUTE .COMPLEX Rx Instructions: to affected areas TID acetaminophen [Tylenol] 325 mg Capsule 650 mg PO PRN PRN (Reason: Back Pain) potassium chloride 10 mEq tablet extended release 10 meq PO PRN Rx Instructions: take with Lasix as needed Xiidra 5 % dropperette 2 drp EACH EYE BID ibuprofen 600 mg tablet 600 mg PO Q6H PRN (Reason: Pain) polyethylene glycol 3350 [Miralax] 17 gram/dose Powder 17 g PO DAILY pregabalin 100 mg capsule 100 mg PO TID Rx Instructions: takes last dose at bedtime 2100 pantoprazole 40 mg Tablet,Delayed Release (Dr/Ec) 40 mg PO QAM Qty: 30 0RF ertapenem 1 gram Recon Soln 1 g IV Q24H Qty: 2 0RF metoprolol succinate 50 mg tablet extended release 24 hr 50 mg PO DAILY pravastatin 10 mg tablet 10 mg PO DAILY Premarin 0.625 mg/gram cream 1 applic vaginal EVERY OTHER DAY levothyroxine 125 mcg tablet 125 mcg PO DAILY clotrimazole-betamethasone 1-0.05 % cream 1 applic TOPICAL DAILY PRN (Reason: Itching) Patient Comments: everyother day ergocalciferol (vitamin D2) 1,250 mcg (50,000 unit) capsule 1,250 mcg PO WEEKLY Gemtesa 75 mg tablet 75 mg PO DAILY Follow-up/Referrals: CONCHITA,MELIA Costa M.D. [Non-Staff] - Pepe,Tommy Costa MD [Primary Care Provider] - Time of Disposition: 18:25
[2024-08-08 16:15] LABS: Alanine Aminotransferase 23 U/L (6-35); Albumin Level 4.2 g/dL (3.5-5.1); Alkaline Phosphatase 105 U/L (38-126); Anion Gap 8 mmol/L (4-12); Aspartate Amino Transferase 27 U/L (14-36); Bilirubin,Total 0.5 mg/dL (0.2-1.3); Blood Urea Nitrogen 11 mg/dL (7-17); Calcium 10.5 mg/dL (8.4-10.2); Carbon Dioxide 25 mmol/L (22-30); Chloride 106 mmol/L (98-107); Estimated CRCL calculation 85 ml/min; Estimated Glomerular Filt Rate > 60; Glucose 109 mg/dL (65-110); Sodium 139 mmol/L (137-145); Total Protein 7.5 g/dL (6.3-8.2)
[2024-08-08 16:50] LABS: Add Urine Microscopic? YES; Appearance Urine Clear (Clear); Bacteria Urine 3+ /hpf; Bilirubin Urine Negative (Negative); Blood Urine Negative (Negative); Color Urine Dark Yellow (Yellow); Glucose Urine UA Negative (Negative); Ketones Urine Negative (Negative); Leukocyte Esterase Ur 2+ LEU/UL (Negative); Nitrate Urine Positive (Negative); Non Pathogenic Casts 0-2; Protein Urine Negative (Negative); RBC Urine 0-2 /hpf (0-2); Specific Grav Ur 1.004 (1.001-1.035); Squamous Epithelial Cell Urine None Seen /hpf (Few)
[2024-08-08 16:54] LABS: Creatine Kinase 39 U/L (30-135)
[2024-08-08 16:59] VITALS: PULSE 77
[2024-08-08] MEDS: METOPROLOL TARTRATE 50 MG TAB PO (16:59)
[2024-08-08 17:05] LABS: NT Pro B Type Natriuretic Pept 141 pg/mL (19.9-100); Troponin I < 0.012 ng/mL (0.000-0.034)
[2024-08-08 17:07] LABS: Influenza A QL RT-PCR Negative (Negative); Influenza B QL RT-PCR Negative (Negative); RSV RNA, RT-PCR Negative (Negative); SARS-CoV-2 RNA PCR Negative (Negative)
[2024-08-08] MEDS: ACETAMINOPHEN 500 MG TABLET 1000 MG PO (17:58)
[2024-08-08] MEDS: KETOROLAC 15 MG/ML VIAL (*BKC) IV PUSH (17:58)
[2024-08-08 18:40] VITALS: BP 157/57; PULSE 74; RESP 18; O2SAT 99
== END 2024-08-08 18:42 | disposition home or self-care (01) ==
PROVIDERS: Emergency Provider Student in an Organized Health Care Education/Training Program; PCP Anesthesiology
DX: N39.0 Urinary tract infection, site not specified (principal); M79.605 Pain in left leg; M79.604 Pain in right leg; K13.79 Other lesions of oral mucosa; I27.20 Pulmonary hypertension, unspecified; I48.20 Chronic atrial fibrillation, unspecified; E03.9 Hypothyroidism, unspecified; E66.9 Obesity, unspecified; Z68.41 Body mass index [BMI] 40.0-44.9, adult; H04.129 Dry eye syndrome of unspecified lacrimal gland; G47.33 Obstructive sleep apnea (adult) (pediatric); Z90.710 Acquired absence of both cervix and uterus; R94.31 Abnormal electrocardiogram [ECG] [EKG]; I49.3 Ventricular premature depolarization; Z79.891 Long term (current) use of opiate analgesic
CPT/HCPCS: 36415; 71046; 80053; 81001; 82550; 83735; 83880; 84443; 84484; 85025; 87086; 87186; 87637; 93005; 96365; 96375; 99284; A9270; J0696; J1885

== ENCOUNTER 2024-08-15 09:58 | Inpatient (IN) | payer MEDICARE, SELFPAY ==
[2024-08-15] VITALS (7 sets, daily range): BP systolic 137–160; BP diastolic 54–82; PULSE 63–83; RESP 16–20; TEMP 36.3–36.8; O2SAT 94–100; BMI 38.9
[2024-08-15 10:52] LABS: Hematocrit 40.1 % (37.0-47.0); Hemoglobin 12.9 g/dL (12.0-15.0); Immature Granulocyte Percent A 0.2 % (0-0.5); Lymphocytes Absolute Auto 1.38 K/mm3 (0.9-3.2); Mean Corpuscular HGB Conc 32.2 g/dl (32-36); Mean Corpuscular Hemoglobin 29.4 pg (26-34); Mean Corpuscular Volume 91.3 fl (80-100); Nucleated Red Blood Cells Absolute Auto 0.000 K/mm3 (0.0-0.012); Nucleated Red Blood Cells Perc 0.0 % (0.0-0.2); Platelet Count Result 223 k/mm3 (150-375); Red Blood Count 4.39 M/mm3 (4.2-5.4); White Blood Count 6.5 K/mm3 (4.5-10.0)
--- NOTE | 2024-08-15 10:52 | ED.GENADULT ---
HPI - General Adult General Chief complaint: Recheck/Abnormal Lab/Rx Stated complaint: Antibiotic Request per Harding Time Seen by Provider: 08/15/24 10:15 History of Present Illness HPI narrative: Patient is an 84-year-old female who presents ER for IV antibiotics. She was seen on 08/08/2024 was found to have a Pseudomonas urinary infection that was resistant to fluoroquinolones. She had originally been prescribed cephalexin. She is still having symptoms including dysuria and urinary frequency. Her PCP would like her to have Invanz IV but was unable to obtain it to provide the medication in office. No fevers or chills. No chest pain or abdominal pain. No other complaints. Related Data Home Medications ?Medication ?Instructions ?Recorded ?Confirmed ?Last Taken ?Type pregabalin 100 mg capsule (Lyrica) 100 mg PO DAILY 06/17/20 08/15/24 08/11/23 21:00 History conjugated estrogens 0.625 mg/gram 1 applic vaginal EVERY OTHER DAY 08/02/22 08/15/24 12/02/22 History vaginal cream (Premarin) ergocalciferol (vitamin D2) 1,250 1,250 mcg PO WEEKLY 08/02/22 08/15/24 08/05/23 History mcg (50,000 unit) capsule metoprolol succinate 50 mg 50 mg PO DAILY 08/02/22 08/15/24 09/20/23 History tablet,extended release 24 hr pravastatin 10 mg tablet 10 mg PO DAILY 08/02/22 08/15/24 08/12/23 08:00 History vibegron 75 mg tablet (Gemtesa) 75 mg PO DAILY 08/02/22 08/15/24 08/09/23 History acetaminophen 325 mg capsule 650 mg PO PRN PRN Back Pain 08/09/23 08/15/24 Unknown History (Tylenol) furosemide 20 mg tablet 20 mg PO DAILY PRN swelling 08/09/23 08/15/24 Unknown History nystatin 100,000 unit/gram topical See Rx Instructions .Route .COMPLEX 08/09/23 08/15/24 08/09/23 History powder lifitegrast 5 % eye drops in a 2 drp EACH EYE BID 09/21/23 08/15/24 Unknown History dropperette (Xiidra) polyethylene glycol 3350 17 17 g PO DAILY 09/21/23 08/15/24 Unknown History gram/dose oral powder (Miralax) pregabalin 100 mg capsule 100 mg PO TID 09/22/23 08/15/24 09/21/23 09:00 History ascorbic acid (vitamin C) 500 mg 500 mg PO DAILY 08/15/24 08/15/24 Unknown History tablet cyanocobalamin (vitamin B-12) 1,000 mcg subcut MONTHLY 08/15/24 08/15/24 Unknown History 1,000 mcg/mL injection solution cyclosporine 0.09 % eye drops in a 1 drp EACH EYE Q12H 08/15/24 08/15/24 Unknown History dropperette (Cequa) fluticasone propionate 50 1 spray intranasal DAILY PRN 08/15/24 08/15/24 Unknown History mcg/actuation nasal allergy symptoms spray,suspension levothyroxine 137 mcg tablet 137 mcg PO DAILY 08/15/24 08/15/24 Unknown History omeprazole 20 mg capsule,delayed 20 mg PO DAILY 08/15/24 08/15/24 Unknown History release Allergies Allergy/AdvReac Type Severity Reaction Status Date / Time atorvastatin Allergy Mild Muscle Pain Verified 08/15/24 16:06 ciprofloxacin Allergy Unknown Hives Verified 08/15/24 16:06 codeine Allergy Unknown UNKNOWN Verified 08/15/24 16:06 diltiazem Allergy Unknown Unknown Verified 08/15/24 16:06 Iodinated Contrast Media Allergy Unknown HIVES AND Verified 08/15/24 16:06 RASH isosorbide Allergy Unknown Unknown Verified 08/15/24 16:06 latex Allergy Unknown Rash Verified 08/15/24 16:06 levofloxacin Allergy Unknown Rash Verified 08/15/24 16:06 Mycobacterium Tuberculosis Allergy Unknown rash, a-fib Verified 08/15/24 16:06 (Tubercu (Mycobacterium Tuberculosis (Tuberculin PPD)) nitrofurantoin Allergy Unknown ITCH AND Verified 08/15/24 16:06 DIZZY Penicillins Allergy Unknown yeast Verified 08/15/24 16:06 prednisone Allergy Unknown Hives / Verified 08/15/24 16:06 Red Face Sulfa (Sulfonamide Allergy Unknown Anaphylactic Verified 08/15/24 16:06 Antibiotics) Shock epinephrine AdvReac Unknown Rash Verified 08/15/24 16:06 Review of Systems Review of Systems: All systems reviewed & are unremarkable except as noted in HPI and below Constitutional: Constitutional: Reports no additional constitutional complaints Cardiovascular: Cardiovascular: Reports no additional cardiovascular complaints Respiratory: Respiratory: Reports no additional respiratory complaints Gastrointestinal: Gastrointestinal: Reports no additional gastrointestinal complaints Musculoskeletal: Musculoskeletal: Reports no additional musculoskeletal complaints Neurologic: Reports system reviewed and no additional complaints, except as documented PMFSH Past Medical History Medical History Hard of hearing Pulmonary hypertension Rhinitis Frequent urinary tract infections Hypothyroidism Shortness of Breath Obstructive sleep apnea Chronic atrial fibrillation Hypersomnia Obesity (BMI 30-39.9) SOB (shortness of breath) Sleep-disordered breathing Surgical History Surgical History History of hysterectomy Family History Family History Mother Carcinoma of colon Father Family history of emphysema, Onset Age: 60 Social History Social History Smoking status: Never smoker Second hand tobacco smoke exposure: No Alcohol intake: never Substance use: never Substance use type: does not use Do You Feel Safe in your Home?: Yes Lack of Transportation: No Lack of Food: Never True Current Housing: I Have Housing Concerned About Future Housing: No Difficulty Paying Gas/Electric Bills: No Difficulty Paying for Meds: No Currently Unemployed: No Education: Master's Degree or Higher Difficulty w/ Childcare or Family Care: No Living arrangements: alone Occupation/Education: retired Spiritual care concerns: No Exam Narrative: GENERAL: Well-appearing, well-nourished, and in no acute distress. HEAD: Normocephalic, atraumatic. ENT: Mucous membranes moist. CHEST: Clear to auscultation. No respiratory distress. HEART: Regular rate and rhythm. Normal peripheral pulses. ABDOMEN: Soft, nontender, nondistended. EXTREMITIES: Normal range of motion. Chronic venous stasis changes. SKIN: Warm, dry, no rash. NEURO: Alert and oriented x3. PSYCH: Normal mood and affect. Course Course Emergency Course: 1054: Discussed urine culture results with pharmacy. We will proceed with IV cefepime. Patient accepted by hospitalist service. Vital Signs Vital signs: Vital Signs Temperature 97.6 F 08/15/24 10:04 Pulse Rate 77 06/28/25 10:04 Respiratory Rate 18 08/15/24 10:04 Blood Pressure 160/82 H 08/15/24 10:04 Pulse Oximetry 100 08/15/24 10:04 Oxygen Delivery Room Air 08/15/24 10:04 Temperature 98.3 F 08/15/24 18:35 Pulse Rate 65 08/15/24 18:35 Respiratory Rate 16 08/15/24 18:35 Blood Pressure 156/64 H 08/15/24 18:35 Pulse Oximetry 100 08/15/24 18:35 Oxygen Delivery Room Air 08/15/24 10:04 Medical Decision Making Vital Signs Vital Signs: Vital Signs Temperature 97.6 F 08/15/24 10:04 Pulse Rate 77 08/15/24 10:04 Respiratory Rate 18 08/15/24 10:04 Blood Pressure 160/82 H 08/15/24 10:04 Pulse Oximetry 100 08/15/24 10:04 Oxygen Delivery Room Air 08/15/24 10:04 Temperature 98.3 F 08/15/24 18:35 Pulse Rate 65 08/15/24 18:35 Respiratory Rate 16 08/15/24 18:35 Blood Pressure 156/64 H 08/15/24 18:35 Pulse Oximetry 100 08/15/24 18:35 Oxygen Delivery Room Air 08/15/24 10:04 Lab Data 08/15/24 10:43 08/15/24 10:43 Labs: Lab Results 08/15/24 08/15/24 Range/Units 10:36 10:43 WBC 6.5 (4.5-10.0) K/mm3 RBC 4.39 (4.2-5.4) M/mm3 Hgb 12.9 (12.0-15.0) g/dL Hct 40.1 (37.0-47.0) % MCV 91.3 (80-100) fl MCH 29.4 (26-34) pg MCHC 32.2 (32-36) g/dl RDW 14.1 (11.5-14.5) % Plt Count 223 (150-375) k/mm3 MPV 10.2 (7.4-10.4) fl Immature Gran % (Auto) 0.2 (0-0.5) % Neut % (Auto) 67.1 (45.5-73.1) % Lymph % (Auto) 21.3 (18.3-44.2) % [place] % (Auto) 6.6 (2.6-8.5) % Eos % (Auto) 3.9 (0-4.4) % Baso % (Auto) 0.9 (0.2-1.2) % Lymph # (Auto) 1.38 (0.9-3.2) K/mm3 [place] # (Auto) 0.4 (0.1-0.6) K/mm3 Eos # (Auto) 0.3 (0-0.3) K/mm3 Baso # (Auto) 0.1 (0.0-0.1) K/mm3 Abs Immat Gran (auto) 0.01 (0.00-0.031) K/mm3 Absolute Neuts (auto) 4.4 (1.3-6.7) K/mm3 Absolute Nucleated RBC 0.000 (0.0-0.012) K/mm3 Nucleated RBC % 0.0 (0.0-0.2) % Sodium 139 (137-145) mmol/L Potassium 4.0 (3.4-5.0) mmol/L Chloride 105 (98-107) mmol/L Carbon Dioxide 26 (22-30) mmol/L Anion Gap 8 (4-12) mmol/L BUN 18 H (7-17) mg/dL Creatinine 0.66 L (0.7-1.0) mg/dL Estim Creat Clear Calc 79 ml/min Estimated GFR > 60 (59 - ) Glucose 118 H (65-110) mg/dL Calcium 10.3 H (8.4-10.2) mg/dL Total Bilirubin 0.6 (0.2-1.3) mg/dL AST 24 (14-36) U/L ALT 20 (6-35) U/L Alkaline Phosphatase 92 (38-126) U/L Total Protein 7.2 (6.3-8.2) g/dL Albumin 4.1 (3.5-5.1) g/dL Urine Color Dark yellow (Yellow) Urine Appearance Turbid H (Clear) Urine pH 5.5 (5.0-9.0) Ur Specific [place] 1.013 (1.001-1.035) Urine Protein 1+ H (Negative) mg/dL Urine Glucose (UA) Negative (Negative) mg/dL Urine Ketones Negative (Negative) mg/dL Ur Blood (Man) 2+ H (Negative) Urine Nitrate Positive H (Negative) Urine Bilirubin 1+ H (Negative) Urine Urobilinogen 1.0 (<2.0) mg/dL Add Ur Microanalysis Reviewed Leukocyte Esterase Rfl 3+ H (Negative) ELO/UL Urine RBC 11-20 H (0-2) /hpf Urine WBC >100 H (0-3) /hpf Ur Squamous Epith Cells Few (Few) /hpf Urine Bacteria 4+ H /hpf Urine Casts 6-10 Discharge Plan Discharge Clinical Impression: Acute UTI Patient Disposition: Still a Patient Condition: Stable
[2024-08-15 10:55] LABS: Add Urine Microscopic? YES; Appearance Urine Turbid (Clear); Glucose Urine UA Negative (Negative); Leukocyte Esterase Ur 3+ LEU/UL (Negative); Need Manual Microscopic Reviewed; Nitrate Urine Positive (Negative); Specific Grav Ur 1.013 (1.001-1.035)
[2024-08-15 11:12] LABS: Alanine Aminotransferase 20 U/L (6-35); Albumin Level 4.1 g/dL (3.5-5.1); Alkaline Phosphatase 92 U/L (38-126); Anion Gap 8 mmol/L (4-12); Aspartate Amino Transferase 24 U/L (14-36); Bilirubin,Total 0.6 mg/dL (0.2-1.3); Blood Urea Nitrogen 18 mg/dL (7-17); Calcium 10.3 mg/dL (8.4-10.2); Carbon Dioxide 26 mmol/L (22-30); Chloride 105 mmol/L (98-107); Estimated CRCL calculation 79 ml/min; Estimated Glomerular Filt Rate > 60; Glucose 118 mg/dL (65-110); Potassium 4.0 mmol/L (3.4-5.0); Sodium 139 mmol/L (137-145); Total Protein 7.2 g/dL (6.3-8.2)
[2024-08-15] MEDS: CEFEPIME 1 GM/NS 50 ML 1 GM/50 ML BAG IVPB (11:39)
[2024-08-15] MEDS: ACETAMINOPHEN 325 MG TABLET 650 MG PO ×3 (11:47→21:09)
--- NOTE | 2024-08-15 12:09 | P.HP_ITS ---
H&P: HPI History of Present Illness Date/Time: 08/15/24 12:09 Chief Complaint: Abnormal labs Narrative: 84-year-old female with an extensive PMHx: of but not limited to recurrent UTI MDRO, pulmonary HTN, hypothyroidism, EL, chronic atrial fibrillation. The patient presented with a urinary tract infection reporting feeling terrible and weak for the past few days, the patient experience chills particularly in the afternoon. Pt also reports ongoing dysuria. The patient mentioned swelling in both legs and has been self treating with Neosporin and other methods. 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 She reports having normal bowel movements without abdominal pain there is no SOB or chest pain noted the patient's mentions a history of heart failure. Review of Systems Review of Systems: All systems reviewed & are unremarkable except as noted in HPI and below PMFSH Past Medical History Medical History Hard of hearing Pulmonary hypertension Rhinitis Frequent urinary tract infections Hypothyroidism Shortness of Breath Obstructive sleep apnea Chronic atrial fibrillation Hypersomnia Obesity (BMI 30-39.9) SOB (shortness of breath) Sleep-disordered breathing Surgical History Surgical History History of hysterectomy Family History Family History Mother Carcinoma of colon Father Family history of emphysema, Onset Age: 60 Social History Social History Smoking status: Never smoker Second hand tobacco smoke exposure: No Alcohol intake: never Substance use: never Substance use type: does not use Do You Feel Safe in your Home?: Yes Lack of Transportation: No Lack of Food: Never True Current Housing: I Have Housing Concerned About Future Housing: No Difficulty Paying Gas/Electric Bills: No Difficulty Paying for Meds: No Currently Unemployed: No Education: Master's Degree or Higher Difficulty w/ Childcare or Family Care: No Living arrangements: alone Occupation/Education: retired Spiritual care concerns: No Meds Home Medications and Allergies Home Medications ?Medication ?Instructions ?Recorded ?Confirmed ?Type pregabalin 100 mg capsule (Lyrica) 100 mg PO DAILY 06/17/20 09/20/23 History clotrimazole-betamethasone 1 1 applic topical DAILY PRN Itching 08/02/22 09/20/23 History %-0.05 % topical cream conjugated estrogens 0.625 mg/gram 1 applic vaginal EVERY OTHER DAY 08/02/22 09/20/23 History vaginal cream (Premarin) ergocalciferol (vitamin D2) 1,250 1,250 mcg PO WEEKLY 08/02/22 09/20/23 History mcg (50,000 unit) capsule levothyroxine 125 mcg tablet 125 mcg PO DAILY 08/02/22 09/20/23 History metoprolol succinate 50 mg 50 mg PO DAILY 08/02/22 09/20/23 History tablet,extended release 24 hr pravastatin 10 mg tablet 10 mg PO DAILY 08/02/22 09/20/23 History vibegron 75 mg tablet (Gemtesa) 75 mg PO DAILY 08/02/22 09/20/23 History acetaminophen 325 mg capsule 650 mg PO PRN PRN Back Pain 08/09/23 09/20/23 History (Tylenol) furosemide 20 mg tablet 20 mg PO DAILY PRN swelling 08/09/23 09/20/23 History nystatin 100,000 unit/gram topical See Rx Instructions .Route .COMPLEX 08/09/23 09/20/23 History powder potassium chloride 10 mEq 10 meq PO PRN 09/20/23 09/20/23 History tablet,extended release ibuprofen 600 mg tablet 600 mg PO Q6H PRN Pain 09/21/23 09/21/23 History lifitegrast 5 % eye drops in a 2 drp EACH EYE BID 09/21/23 09/21/23 History dropperette (Xiidra) polyethylene glycol 3350 17 17 g PO DAILY 09/21/23 09/21/23 History gram/dose oral powder (Miralax) pregabalin 100 mg capsule 100 mg PO TID 09/22/23 09/22/23 History ertapenem 1 gram solution for 1 g IV Q24H #2 ea 09/26/23 Rx injection pantoprazole 40 mg tablet,delayed 40 mg PO QAM #30 tabs 09/26/23 Rx release acetaminophen 500 mg capsule 1,000 mg (2 x 500 mg) PO Q6H PRN 08/08/24 Rx pain #30 caps cephalexin 500 mg capsule 500 mg PO Q6H 5 days #20 caps 08/08/24 Rx ibuprofen 600 mg tablet 600 mg PO TID PRN pain #30 tabs 08/08/24 Rx Allergies Allergy/AdvReac Type Severity Reaction Status Date / Time atorvastatin Allergy Mild Muscle Pain Verified 08/08/24 15:50 ciprofloxacin Allergy Unknown Hives Verified 08/08/24 15:50 codeine Allergy Unknown UNKNOWN Verified 08/08/24 15:50 diltiazem Allergy Unknown Unknown Verified 08/08/24 15:50 Iodinated Contrast Media Allergy Unknown HIVES AND Verified 08/08/24 15:50 RASH isosorbide Allergy Unknown Unknown Verified 08/08/24 15:50 latex Allergy Unknown Rash Verified 08/08/24 15:50 levofloxacin Allergy Unknown Rash Verified 08/08/24 15:50 Mycobacterium Tuberculosis Allergy Unknown rash, a-fib Verified 08/08/24 15:50 (Tubercu (Mycobacterium Tuberculosis (Tuberculin PPD)) nitrofurantoin Allergy Unknown ITCH AND Verified 08/08/24 15:50 DIZZY Penicillins Allergy Unknown UTI Verified 08/08/24 15:50 prednisone Allergy Unknown Hives / Verified 08/08/24 15:50 Red Face Sulfa (Sulfonamide Allergy Unknown Anaphylactic Verified 08/08/24 15:50 Antibiotics) Shock Vital Signs Vital Signs - 24 hr 08/15/24 10:04 08/15/24 10:48 Temperature 97.6 F Pulse Rate 77 63 Respiratory Rate 18 16 Blood Pressure 160/82 H 145/65 H Pulse Oximetry 100 98 Oxygen Delivery Room Air Exam Narrative: GENERAL: Well-appearing, well-nourished, and in no acute distress. HEAD: Normocephalic, atraumatic. ENT: Mucous membranes moist. CHEST: Clear to auscultation. No respiratory distress. HEART: Regular rate and rhythm. Normal peripheral pulses. ABDOMEN: Soft, nontender, nondistended. EXTREMITIES: Normal range of motion. bilateral chronic venous stasis changes. SKIN: Warm, dry, no rash. NEURO: Alert and oriented x3. PSYCH: Normal mood and affect. H&P: Results Labs Labs: Short CBC 08/15/24 Range/Units 10:43 WBC 6.5 (4.5-10.0) K/mm3 Hgb 12.9 (12.0-15.0) g/dL Hct 40.1 (37.0-47.0) % Plt Count 223 (150-375) k/mm3 BMP 08/15/24 10:43 Sodium 139 Potassium 4.0 Chloride 105 Carbon Dioxide 26 BUN 18 H Creatinine 0.66 L Glucose 118 H Calcium 10.3 H Liver Function 08/15/24 Range/Units 10:43 Total Bilirubin 0.6 (0.2-1.3) mg/dL AST 24 (14-36) U/L ALT 20 (6-35) U/L Alkaline Phosphatase 92 (38-126) U/L Albumin 4.1 (3.5-5.1) g/dL Urine 08/15/24 Range/Units 10:36 Urine Color Dark yellow (Yellow) Urine Appearance Turbid H (Clear) Urine pH 5.5 (5.0-9.0) Ur Specific [place] 1.013 (1.001-1.035) Urine Protein 1+ H (Negative) mg/dL Urine Glucose (UA) Negative (Negative) mg/dL Pulse Oximetry SpO2 results: 99% on RA Attestation: I personally reviewed and interpreted this pulse oximetry as follows: Imaging Chest x-ray: Radiologist's impression: XR chest 2V Ordering provider: Kimi Gonsalez MD History: 84 years Female with . weak, chills, best images possible . Comparison: September 20, 2023 FINDINGS: MEDIASTINUM: The cardiac silhouette is slightly enlarged. LUNGS: No infiltrates, effusions or pneumothorax. Slightly prominent markings bilaterally. OTHER: No free air under the diaphragm. Degenerative changes of the spine. IMPRESSION: No acute cardiopulmonary pathology. Assessment and Plan Assessment and plan (1) MDRO (multiple drug resistant organisms) resistance: Status: Acute Assessment and Plan: UA is consistent with infectious process, Patient has urine culture growth history of ESBL -urine cultures pending (2) Frequent urinary tract infections: Code(s): N39.0 - Urinary tract infection, site not specified Status: Acute Assessment and Plan: Recurrent urinary tract infections -history of ESBL -start cefepime 1 g q.12 -monitor/record I&O (3) Chronic atrial fibrillation: Code(s): I48.20 - Chronic atrial fibrillation, unspecified Status: Acute Assessment and Plan: -chronic, HR 63 -continue home medication -metoprolol succinate 50 mg p.o. daily (4) Hypothyroidism: Code(s): E03.9 - Hypothyroidism, unspecified Status: Acute Assessment and Plan: chronic -continue home medication (5) Obesity (BMI 30-39.9): Code(s): E66.9 - Obesity, unspecified Status: Acute Assessment and Plan: chronic heart healthy diet (6) Chronic venous stasis dermatitis of both lower extremities: Code(s): I87.2 - Venous insufficiency (chronic) (peripheral) Status: Acute Assessment and Plan: -chronic -check daily weight -keep bilateral legs clean dry -elevate bilateral extremities (7) Hypertension: Code(s): I10 - Essential (primary) hypertension Status: Acute Assessment and Plan: Chronic, slightly elevated during admission -continue home medication -check vitals q.4 hours Plan Continue home medications: VTE Prophylaxis: Enoxaparin DIET: Heart healthy Anticipated hospital stay: > 2 days Code Status: Full code Quality VTE Prophylaxis VTE prophylaxis: pharmacologic ordered
--- NOTE | 2024-08-15 13:42 | ADMGEN ---
This patient, Matilde Cloud, was admitted to 2 Medical Room 260-. Patient/family oriented to hospital policies and general routines including ID bracelet, bed and alarms, visiting hours, pain management, procedures, bathroom and other care routines, personal items, smoking policy, room service/diet, and visiting hours. Information on how to activate the Rapid Response Team has been discussed. Patient/Family are encouraged to report perceived risks to care and to ask questions if they do not understand what they are told or what they should do.
[2024-08-15] MEDS: PREGABALIN (*CRX) 50 MG CAPSULE 100 MG PO (23:55)
[2024-08-16 04:00] VITALS: BP 154/62; PULSE 77; RESP 20; TEMP 36.3; O2SAT 91
[2024-08-16 05:40] LABS: Hematocrit 42.8 % (37.0-47.0); Hemoglobin 13.7 g/dL (12.0-15.0); Immature Granulocyte Percent A 0.4 % (0-0.5); Lymphocytes Absolute Auto 1.63 K/mm3 (0.9-3.2); Mean Corpuscular HGB Conc 32.0 g/dl (32-36); Mean Corpuscular Hemoglobin 29.2 pg (26-34); Mean Corpuscular Volume 91.3 fl (80-100); Nucleated Red Blood Cells Absolute Auto 0.000 K/mm3 (0.0-0.012); Nucleated Red Blood Cells Perc 0.0 % (0.0-0.2); Platelet Count Result 246 k/mm3 (150-375); Red Blood Count 4.69 M/mm3 (4.2-5.4); White Blood Count 5.5 K/mm3 (4.5-10.0)
[2024-08-16] MEDS: ACETAMINOPHEN 325 MG TABLET 650 MG PO ×3 (05:48→21:40)
[2024-08-16] MEDS: LEVOTHYROXINE SODIUM 112 MCG TABLET PO (05:54)
[2024-08-16] MEDS: LEVOTHYROXINE SODIUM 25 MCG TABLET PO (05:54)
[2024-08-16] MEDS: PREGABALIN (*CRX) 50 MG CAPSULE 100 MG PO ×3 (05:54→21:29)
[2024-08-16 05:59] LABS: Anion Gap 8 mmol/L (4-12); Blood Urea Nitrogen 16 mg/dL (7-17); Calcium 10.3 mg/dL (8.4-10.2); Carbon Dioxide 28 mmol/L (22-30); Chloride 105 mmol/L (98-107); Estimated CRCL calculation 80 ml/min; Estimated Glomerular Filt Rate > 60; Glucose 123 mg/dL (65-110); Potassium 4.1 mmol/L (3.4-5.0); Sodium 141 mmol/L (137-145)
[2024-08-16 07:50] VITALS: BP 152/70; PULSE 78; RESP 16; TEMP 36.2; O2SAT 99
[2024-08-16 08:24] VITALS: PULSE 78
[2024-08-16] MEDS: METOPROLOL SUCCINATE EXT REL 50 MG TABCR PO (08:24)
[2024-08-16] MEDS: ASCORBIC ACID 500 MG TABLET PO (08:24)
[2024-08-16] MEDS: cycloSPORINE 0.4 ML OPHTH SOLUTION 1 DROP EACH EYE ×2 (08:25→21:30)
[2024-08-16] MEDS: PANTOPRAZOLE 40 MG TABLET PO (08:25)
[2024-08-16] MEDS: ENOXAPARIN 30 MG/0.3 ML SYRINGE SUB-Q (08:25)
--- NOTE | 2024-08-16 10:10 | PC.NURSE ---
pt states her primary MD, Dr Harding, called her friend and stated that pt needs to have Invanz IVPB, she states she is not going to take the antibiotic prescribed by Dr Rodriguez in the ED because she claims it caused her to have GI bleeding and stomach cramping yesterday, so she is refusing the IVPB ordered for her now
[2024-08-16] MEDS: PRAVASTATIN SODIUM 10 MG TABLET PO (13:49)
[2024-08-16 14:31] VITALS: BP 140/70; PULSE 88; RESP 16; TEMP 36.3; O2SAT 97
--- NOTE | 2024-08-16 17:07 | P.PNIM_ITS ---
Progress Note: A&P Assessment and Plan (1) MDRO (multiple drug resistant organisms) resistance: Status: Acute Assessment and Plan: Urine culture from 08/08 shows pseudomonas anginous sensitive to meropenem which i will start meropenem today and dc cefepime, pt mentions blood in her stool from cefepime -awaiting UC from yesterday -follow UC and BC -watch WCC (2) Frequent urinary tract infections: Code(s): N39.0 - Urinary tract infection, site not specified Status: Acute Assessment and Plan: Recurrent urinary tract infections -history of ESBL - multiple allergies to ABX (3) Chronic atrial fibrillation: Code(s): I48.20 - Chronic atrial fibrillation, unspecified Status: Acute Assessment and Plan: - chronic and stable - continue metoprolol succinate 50 mg p.o. daily (4) Hypothyroidism: Code(s): E03.9 - Hypothyroidism, unspecified Status: Acute Assessment and Plan: -chronic and stable -continue home Synthroid (5) Obesity (BMI 30-39.9): Code(s): E66.9 - Obesity, unspecified Status: Acute Assessment and Plan: - weight loss adviced (6) Chronic venous stasis dermatitis of both lower extremities: Code(s): I87.2 - Venous insufficiency (chronic) (peripheral) Status: Acute Assessment and Plan: -chronic -stocking ordered for venous insufficiency (7) Hypertension: Code(s): I10 - Essential (primary) hypertension Status: Acute Assessment and Plan: - chronic and stable - continue metoprolol Plan HLD - continue statin GERD- PPI diet- cardiac diet code- DNR dvt prop- lovenox Subjective Date/time seen: 08/16/24 17:07 Interval history: 84-year-old female with an extensive PMHx: of but not limited to recurrent UTI MDRO, pulmonary HTN, hypothyroidism, EL, chronic atrial fibrillation. The patient presented with a urinary tract infection reporting feeling terrible and weak for the past few days, the patient experience chills particularly in the afternoon. Pt states she was in ED few days ago with similar complaints discharged with oral ABX for UTI returned to ED because she did not feel better. Pt UA is positive today await report. Pt has multiple allergies states she cannot take cefepime causes bloody stool, pt is requesting iv invanz as per her primary provider. Review of Systems Review of Systems: very anxious lady mentions bloody stools from her present ABX Exam Narrative: GENERAL: Well-appearing,very anxious CHEST: Clear to auscultation. No respiratory distress. HEART: Regular rate and rhythm. Normal peripheral pulses. ABDOMEN: Soft, nontender, nondistended. EXTREMITIES: Normal range of motion. bilateral chronic venous stasis changes. SKIN: Warm, dry, no rash. NEURO: Alert and oriented x3. PSYCH: Normal mood and affect. Objective Data Vital Signs Vital Signs: Vital Signs - 24 hr 08/15/24 18:35 08/15/24 20:00 08/15/24 20:00 Temperature 36.8 C 36.3 C L Pulse Rate 65 71 Respiratory Rate 16 20 Blood Pressure 156/64 H 153/71 H Pulse Oximetry 100 100 94 Oxygen Delivery Room Air 08/15/24 22:00 08/15/24 23:23 08/16/24 04:00 Temperature 36.5 C 36.3 C L Pulse Rate 83 77 Respiratory Rate 20 20 Blood Pressure 137/54 L 154/62 H Pulse Oximetry 94 94 91 Oxygen Delivery Room Air 08/16/24 07:50 08/16/24 08:24 08/16/24 08:32 Temperature 36.2 C L Pulse Rate 78 78 Respiratory Rate 16 Blood Pressure 152/70 H Pulse Oximetry 99 Oxygen Delivery Room Air 08/16/24 14:31 Temperature 36.3 C L Pulse Rate 88 Respiratory Rate 16 Blood Pressure 140/70 Pulse Oximetry 97 Oxygen Delivery Intake/Output Intake/Output: Intake & Output 08/13/24 08/14/24 08/15/24 08/16/24 23:59 23:59 23:59 23:59 Intake Total 300 980 Balance 300 980 Meds/Results Medications: Active Medications Generic Name Dose Route Start Last Admin Trade Name Freq PRN Reason Stop Dose Admin Acetaminophen 650 mg 08/15/24 11:40 08/16/24 13:52 Acetaminophen 325 Mg Tablet PO 650 mg Q4H PRN Administration Mild Pain (1-3) or Fever Ascorbic Acid 500 mg 08/16/24 09:00 08/16/24 08:24 Ascorbic Acid 500 Mg Tablet PO 500 mg DAILY RILEY Administration Cyanocobalamin 1,000 mcg 09/14/24 09:00 Cyanocobalamin Inj 1,000 Mcg/Ml Vial SUB-Q MONTHLY [facility]LEY Cyclosporine 1 drop 08/16/24 09:00 08/16/24 08:25 Cyclosporine 0.4 Ml Ophth Solution EACH EYE 1 drop Q12HR RILEY Administration Enoxaparin Sodium 30 mg 08/16/24 09:00 08/16/24 08:25 Enoxaparin 30 Mg/0.3 Ml Syringe SUB-Q 30 mg DAILY [facility] Administration Fluticasone Propionate 1 spray 08/15/24 22:56 Fluticasone Propionate 0.05% Na Spr 16 Gm Btl (*Bkc) NASAL DAILY PRN allergy symptoms Cefepime HCl 1 gm in 50 mls @ 100 mls/hr 08/15/24 23:00 08/16/24 11:10 Maxipime 1 Gm/Ns 50 Ml IVPB Not Given Q12H RILEY Levothyroxine Sodium 112 mcg 08/16/24 06:30 08/16/24 05:54 Levothyroxine Sodium 112 Mcg Tablet PO 112 mcg DAILY@0630 [facility] Administration Levothyroxine Sodium 25 mcg 08/16/24 06:30 08/16/24 05:54 Levothyroxine Sodium 25 Mcg Tablet PO 25 mcg DAILY@0630 [facility] Administration Metoprolol Succinate 50 mg 08/16/24 09:00 08/16/24 08:24 Metoprolol Succinate Ext Rel 50 Mg Tabcr PO 50 mg DAILY [facility] Administration Miscellaneous Information 0 each 08/15/24 00:01 Vibegron Nonform Can Pt Bring From Home? XX 09/14/24 00:00 CLARIFY RILEY Miscellaneous Information 0 each 08/15/24 23:15 Vitamin B12 Inj- When Is The Next Monthly Dose Due Or When Was The Last Dose Taken? XX 09/14/24 23:14 CLARIFY RILEY Miscellaneous Information 0 each 08/15/24 23:20 Lifitegrast Eye Drops- Nonformulary Please Obtain A Home Supply If Possibl Or Hold While I XX 09/14/24 23:19 CLARIFY RILEY Non-Formulary Medication 2 drop 08/16/24 09:00 Lifitegrast [Xiidra] EACH EYE 09/15/24 08:59 BID RILEY Non-Formulary Medication 75 mg 08/16/24 09:00 Vibegron [Gemtesa] PO 09/15/24 08:59 DAILY RILEY Ondansetron HCl 4 mg 08/15/24 11:40 Ondansetron Inj 4 Mg/2 Ml Vial IV PUSH Q4H PRN Nausea Pantoprazole Sodium 40 mg 08/16/24 09:00 08/16/24 08:25 Pantoprazole 40 Mg Tablet PO 40 mg QAM RILEY Administration Polyethylene Glycol 17 gm 08/16/24 09:00 08/16/24 08:26 Polyethylene Glycol 3350 17 Gm Powd.Pack PO Not Given DAILY [facility]LEY Pravastatin Sodium 10 mg 08/16/24 09:00 08/16/24 13:49 Pravastatin Sodium 10 Mg Tablet PO 10 mg DAILY [facility] Administration Pregabalin 100 mg 08/15/24 23:50 08/16/24 13:49 Pregabalin (*Crx) 50 Mg Capsule PO 100 mg Q8HR RILEY Administration Labs Labs: Laboratory Results - last 24 hr 08/16/24 05:22 WBC 5.5 RBC 4.69 Hgb 13.7 Hct 42.8 MCV 91.3 MCH 29.2 MCHC 32.0 RDW 14.2 Plt Count 246 MPV 10.0 Immature Gran % (Auto) 0.4 Neut % (Auto) 56.7 Lymph % (Auto) 29.9 [place] % (Auto) 7.3 Eos % (Auto) 4.4 Baso % (Auto) 1.3 H Lymph # (Auto) 1.63 [place] # (Auto) 0.4 Eos # (Auto) 0.2 Baso # (Auto) 0.1 Abs Immat Gran (auto) 0.02 Absolute Neuts (auto) 3.1 Absolute Nucleated RBC 0.000 Nucleated RBC % 0.0 Sodium 141 Potassium 4.1 Chloride 105 Carbon Dioxide 28 Anion Gap 8 BUN 16 Creatinine 0.65 L Estim Creat Clear Calc 80 Estimated GFR > 60 Glucose 123 H Calcium 10.3 H
[2024-08-16 18:28] LABS: Hematocrit 41.1 % (37.0-47.0); Hemoglobin 13.2 g/dL (12.0-15.0); Mean Corpuscular HGB Conc 32.1 g/dl (32-36); Mean Corpuscular Hemoglobin 29.7 pg (26-34); Mean Corpuscular Volume 92.4 fl (80-100); Platelet Count Result 251 k/mm3 (150-375); Red Blood Count 4.45 M/mm3 (4.2-5.4); White Blood Count 4.8 K/mm3 (4.5-10.0)
[2024-08-16 18:43] LABS: Anion Gap 8 mmol/L (4-12); Blood Urea Nitrogen 14 mg/dL (7-17); Calcium 10.1 mg/dL (8.4-10.2); Carbon Dioxide 26 mmol/L (22-30); Chloride 104 mmol/L (98-107); Estimated CRCL calculation 65 ml/min; Estimated Glomerular Filt Rate > 60; Glucose 133 mg/dL (65-110); Potassium 4.0 mmol/L (3.4-5.0); Sodium 138 mmol/L (137-145)
[2024-08-16 20:00] VITALS: BP 151/67; PULSE 71; PULSE 88; RESP 16; TEMP 36.3; O2SAT 100; O2SAT 97
[2024-08-16] MEDS: MEROPENEM 1 GM/NS 100 ML BAG IVPB (21:30)
[2024-08-17] VITALS (7 sets, daily range): BP systolic 131–159; BP diastolic 47–90; PULSE 65–84; RESP 18–20; TEMP 36.1–36.6; O2SAT 94–100
[2024-08-17 05:17] LABS: Hematocrit 42.8 % (37.0-47.0); Hemoglobin 13.5 g/dL (12.0-15.0); Immature Granulocyte Percent A 0.4 % (0-0.5); Lymphocytes Absolute Auto 1.86 K/mm3 (0.9-3.2); Mean Corpuscular HGB Conc 31.5 g/dl (32-36); Mean Corpuscular Hemoglobin 29.3 pg (26-34); Mean Corpuscular Volume 92.8 fl (80-100); Nucleated Red Blood Cells Absolute Auto 0.000 K/mm3 (0.0-0.012); Nucleated Red Blood Cells Perc 0.0 % (0.0-0.2); Platelet Count Result 243 k/mm3 (150-375); Red Blood Count 4.61 M/mm3 (4.2-5.4); White Blood Count 4.8 K/mm3 (4.5-10.0)
[2024-08-17] MEDS: LEVOTHYROXINE SODIUM 112 MCG TABLET PO (05:31)
[2024-08-17] MEDS: MEROPENEM 1 GM/NS 100 ML BAG IVPB ×3 (05:31→21:11)
[2024-08-17] MEDS: PREGABALIN (*CRX) 50 MG CAPSULE 100 MG PO ×3 (05:32→21:05)
[2024-08-17] MEDS: LEVOTHYROXINE SODIUM 25 MCG TABLET PO (05:32)
[2024-08-17 05:34] LABS: Anion Gap 10 mmol/L (4-12); Blood Urea Nitrogen 11 mg/dL (7-17); Calcium 10.4 mg/dL (8.4-10.2); Carbon Dioxide 26 mmol/L (22-30); Chloride 106 mmol/L (98-107); Estimated CRCL calculation 80 ml/min; Estimated Glomerular Filt Rate > 60; Glucose 124 mg/dL (65-110); Potassium 4.0 mmol/L (3.4-5.0); Sodium 142 mmol/L (137-145)
[2024-08-17] MEDS: METOPROLOL SUCCINATE EXT REL 50 MG TABCR PO (06:24)
[2024-08-17] MEDS: PANTOPRAZOLE 40 MG TABLET PO (09:29)
[2024-08-17] MEDS: PRAVASTATIN SODIUM 10 MG TABLET PO (09:29)
[2024-08-17] MEDS: diphenhydrAMINE HCl CAP 25 MG CAPSULE PO ×2 (09:29→21:27)
[2024-08-17] MEDS: ASCORBIC ACID 500 MG TABLET PO (09:29)
[2024-08-17] MEDS: cycloSPORINE 0.4 ML OPHTH SOLUTION 1 DROP EACH EYE ×2 (09:30→21:05)
[2024-08-17] MEDS: NYSTATIN 100,000 UNITS/ML SUSP 5 ML ORAL.SUSP PO ×4 (09:32→21:05)
[2024-08-17] MEDS: ENOXAPARIN 30 MG/0.3 ML SYRINGE SUB-Q (09:32)
--- NOTE | 2024-08-17 14:49 | ECG_ITS ---
Test Date: 2024-08-17 15:03:52 Measurements Intervals Freer Rate: 75 P: 59 AR: 204 QRS: -8 QRSD: 97 T: 69 QT: 399 QTc: 448 Interpretive Statements SINUS RHYTHM DELAYED PRECORDIAL R/S TRANSITION LOW QRS VOLTAGE IN PRECORDIAL LEADS NONSPECIFIC ST & T-WAVE ABNORMALITY- HIGH LATERAL LEADS BASELINE ARTIFACT- I, II, III, AVR, AVF BORDERLINE ECG Compared to ECG 08/08/2024 16:28:08 NO SIGNIFICANT CHANGE Electronically Signed On 08-17-2024 15:28:31 CDT by Ra Rivera D.O.
--- NOTE | 2024-08-17 15:05 | PC.NURSE ---
Patient stating that she is having reaction to IV meropenem and that she is itching all over PRN Benadryl ordered this AM for itching r/t complaint of itching after previous Meropenem dose. Patient then states that they are in a-fib and IV infusion must be stopped. Infusion paused. Patient refused Benadryl dose, stating my a-fib needs addressed first. Pulse felt to be in the 80s and regular with occasion extra beat noted. Patient then demands home dose of Metoprolol be administered from closet- she was instructed that any medication administration must first be ordered by the provider. Provider ordered stat EKG and inpatient telemetry. Patient found to be in NSR with a rate of 75.
--- NOTE | 2024-08-17 16:00 | PM.IMPN ---
Progress Note: A&P Assessment and Plan (1) MDRO (multiple drug resistant organisms) resistance: Status: Acute Assessment and Plan: Urine culture from 08/08 shows pseudomonas anginous sensitive to meropenem which i will start meropenem today and dc cefepime, pt mentions blood in her stool from cefepime -awaiting UC from yesterday -follow UC and BC -watch WCC (2) Frequent urinary tract infections: Code(s): N39.0 - Urinary tract infection, site not specified Status: Acute Assessment and Plan: Recurrent urinary tract infections -history of ESBL - multiple allergies to ABX (3) Chronic atrial fibrillation: Code(s): I48.20 - Chronic atrial fibrillation, unspecified Status: Acute Assessment and Plan: - chronic and stable - continue metoprolol succinate 50 mg p.o. 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 patient stats feels much better compared to when she arrived. will continue to monitor. HLD - continue statin GERD- PPI diet- cardiac diet code- DNR dvt prop- lovenox Subjective Date/time seen: 08/17/24 16:00 Interval history: 84-year-old female with an extensive PMHx: of but not limited to recurrent UTI MDRO, pulmonary HTN, hypothyroidism, EL, chronic atrial fibrillation. The patient presented with a urinary tract infection reporting feeling terrible and weak for the past few days, the patient experience chills particularly in the afternoon. Pt states she was in ED few days ago with similar complaints discharged with oral ABX for UTI returned to ED because she did not feel better. Pt UA is positive today await report. Pt has multiple allergies states she cannot take cefepime causes bloody stool, pt is requesting iv invanz as per her primary provider. patient with recurrent UTI and now has MDRO (multiple drug resistant organisms) resistance, UTI and urine culture is growing Pseudomonas aeruginosa and being treated with meropenem, discuss with clinical pharmacist patient will require total of 7 days of the antibiotics. patient stats feels much better compared to when she arrived. will continue to monitor. Review of Systems Review of Systems: very anxious lady mentions bloody stools from her present ABX All systems reviewed & are unremarkable except as noted in HPI and below Exam Narrative: GENERAL: Well-appearing,very anxious CHEST: Clear to auscultation. No respiratory distress. HEART: Regular rate and rhythm. Normal peripheral pulses. ABDOMEN: Soft, nontender, nondistended. EXTREMITIES: Normal range of motion. bilateral chronic venous stasis changes. SKIN: Warm, dry, no rash. NEURO: Alert and oriented x3. PSYCH: Normal mood and affect. Objective Data Vital Signs Vital Signs: Vital Signs - 24 hr 08/16/24 20:00 08/16/24 20:00 08/17/24 00:00 Temperature 36.3 C L 36.5 C Pulse Rate 88 71 73 Respiratory Rate 16 16 20 Blood Pressure 151/67 H 159/90 H Pulse Oximetry 97 100 98 Oxygen Delivery Room Air 08/17/24 04:00 08/17/24 08:00 08/17/24 08:00 Temperature 36.1 C L 36.3 C L Pulse Rate 82 82 Respiratory Rate 18 20 Blood Pressure 141/85 H 151/58 H Pulse Oximetry 94 100 Oxygen Delivery Room Air 08/17/24 12:00 Temperature 36.6 C Pulse Rate 84 Respiratory Rate 18 Blood Pressure 131/47 L Pulse Oximetry 99 Oxygen Delivery Intake/Output Intake/Output: Intake & Output 08/14/24 08/15/24 08/16/24 08/17/24 23:59 23:59 23:59 23:59 Intake Total 300 1320 1103.3 Balance 300 1320 1103.3 Meds/Results Medications: Active Medications Generic Name Dose Route Start Last Admin Trade Name Freq PRN Reason Stop Dose Admin Acetaminophen 650 mg 08/15/24 11:40 08/16/24 21:40 Acetaminophen 325 Mg Tablet PO 650 mg Q4H PRN Administration Mild Pain (1-3) or Fever Ascorbic Acid 500 mg 08/16/24 09:00 08/17/24 09:29 Ascorbic Acid 500 Mg Tablet PO 500 mg DAILY RILEY Administration Cyclosporine 1 drop 08/16/24 09:00 08/17/24 09:30 Cyclosporine 0.4 Ml Ophth Solution EACH EYE 1 drop Q12HR [facility]LEY Administration Diphenhydramine HCl 25 mg 08/17/24 08:24 08/17/24 09:29 Diphenhydramine Hcl Cap 25 Mg Capsule PO 25 mg Q6H PRN Administration Itching Enoxaparin Sodium 40 mg 08/18/24 09:00 Enoxaparin 40 Mg/0.4 Ml Syringe SUB-Q DAILY [facility] Fluticasone Propionate 1 spray 08/15/24 22:56 Fluticasone Propionate 0.05% Na Spr 16 Gm Btl (*Bkc) NASAL DAILY PRN allergy symptoms Meropenem 1 gm in 100 mls @ 200 mls/hr 08/16/24 22:00 08/17/24 14:25 IVPB 08/23/24 14:29 0 mls/hr Q8HR [facility] Infusion Levothyroxine Sodium 112 mcg 08/16/24 06:30 08/17/24 05:31 Levothyroxine Sodium 112 Mcg Tablet PO 112 mcg DAILY@0630 [facility]LEY Administration Levothyroxine Sodium 25 mcg 08/16/24 06:30 08/17/24 05:32 Levothyroxine Sodium 25 Mcg Tablet PO 25 mcg DAILY@0630 [facility] Administration Metoprolol Succinate 50 mg 08/16/24 09:00 08/17/24 06:24 Metoprolol Succinate Ext Rel 50 Mg Tabcr PO 50 mg DAILY [facility]LEY Administration Nystatin 5 ml 08/17/24 09:00 08/17/24 14:02 Nystatin 100,000 Units/Ml Susp 5 Ml Oral.Susp PO 5 ml QID RILEY Administration Ondansetron HCl 4 mg 08/15/24 11:40 Ondansetron Inj 4 Mg/2 Ml Vial IV PUSH Q4H PRN Nausea Pantoprazole Sodium 40 mg 08/16/24 09:00 08/17/24 09:29 Pantoprazole 40 Mg Tablet PO 40 mg QAM RILEY Administration Polyethylene Glycol 17 gm 08/16/24 09:00 08/17/24 09:30 Polyethylene Glycol 3350 17 Gm Powd.Pack PO 17 gm DAILY RILEY Administration Pravastatin Sodium 10 mg 08/16/24 09:00 08/17/24 09:29 Pravastatin Sodium 10 Mg Tablet PO 10 mg DAILY RILEY Administration Pregabalin 100 mg 08/15/24 23:50 08/17/24 14:02 Pregabalin (*Crx) 50 Mg Capsule PO 100 mg Q8HR RILEY Administration Labs Labs: Laboratory Results - last 24 hr 08/16/24 08/17/24 18:11 05:04 WBC 4.8 4.8 RBC 4.45 4.61 Hgb 13.2 13.5 Hct 41.1 42.8 MCV 92.4 92.8 MCH 29.7 29.3 MCHC 32.1 31.5 L RDW 14.2 14.2 Plt Count 251 243 MPV 10.1 10.2 Immature Gran % (Auto) 0.4 Neut % (Auto) 47.4 Lymph % (Auto) 38.5 [place] % (Auto) 7.5 Eos % (Auto) 5.2 H Baso % (Auto) 1.0 Lymph # (Auto) 1.86 [place] # (Auto) 0.4 Eos # (Auto) 0.3 Baso # (Auto) 0.1 Abs Immat Gran (auto) 0.02 Absolute Neuts (auto) 2.3 Absolute Nucleated RBC 0.000 Nucleated RBC % 0.0 Sodium 138 142 Potassium 4.0 4.0 Chloride 104 106 Carbon Dioxide 26 26 Anion Gap 8 10 BUN 14 11 Creatinine 0.81 0.65 L Estim Creat Clear Calc 65 80 Estimated GFR > 60 > 60 Glucose 133 H 124 H Calcium 10.1 10.4 H Quality VTE Prophylaxis VTE prophylaxis: pharmacologic ordered
[2024-08-17] MEDS: ACETAMINOPHEN 325 MG TABLET 650 MG PO (21:26)
[2024-08-18] VITALS (9 sets, daily range): BP systolic 128–169; BP diastolic 41–79; PULSE 64–77; RESP 16–18; TEMP 36.1–36.8; O2SAT 97–100
[2024-08-18] MEDS: ACETAMINOPHEN 325 MG TABLET 650 MG PO ×4 (03:21→22:45)
[2024-08-18] MEDS: diphenhydrAMINE HCl CAP 25 MG CAPSULE PO ×3 (03:25→21:44)
[2024-08-18] MEDS: MEROPENEM 1 GM/NS 100 ML BAG IVPB ×3 (05:18→21:45)
[2024-08-18 06:04] LABS: Hematocrit 41.9 % (37.0-47.0); Hemoglobin 13.2 g/dL (12.0-15.0); Immature Granulocyte Percent A 0.4 % (0-0.5); Lymphocytes Absolute Auto 1.69 K/mm3 (0.9-3.2); Mean Corpuscular HGB Conc 31.5 g/dl (32-36); Mean Corpuscular Hemoglobin 29.3 pg (26-34); Mean Corpuscular Volume 93.1 fl (80-100); Nucleated Red Blood Cells Absolute Auto 0.000 K/mm3 (0.0-0.012); Nucleated Red Blood Cells Perc 0.0 % (0.0-0.2); Platelet Count Result 240 k/mm3 (150-375); Red Blood Count 4.50 M/mm3 (4.2-5.4); White Blood Count 4.6 K/mm3 (4.5-10.0)
[2024-08-18] MEDS: LEVOTHYROXINE SODIUM 25 MCG TABLET PO (06:11)
[2024-08-18] MEDS: LEVOTHYROXINE SODIUM 112 MCG TABLET PO (06:11)
[2024-08-18] MEDS: PREGABALIN (*CRX) 50 MG CAPSULE 100 MG PO ×3 (06:11→21:45)
[2024-08-18 06:23] LABS: Anion Gap 11 mmol/L (4-12); Blood Urea Nitrogen 13 mg/dL (7-17); Calcium 10.0 mg/dL (8.4-10.2); Carbon Dioxide 24 mmol/L (22-30); Chloride 106 mmol/L (98-107); Estimated CRCL calculation 82 ml/min; Estimated Glomerular Filt Rate > 60; Glucose 123 mg/dL (65-110); Magnesium 2.3 mg/dL (1.6-2.3); Potassium 3.8 mmol/L (3.4-5.0); Sodium 141 mmol/L (137-145)
[2024-08-18] MEDS: cycloSPORINE 0.4 ML OPHTH SOLUTION 1 DROP EACH EYE ×2 (08:20→21:45)
[2024-08-18] MEDS: ENOXAPARIN 40 MG/0.4 ML SYRINGE SUB-Q (08:20)
[2024-08-18] MEDS: PANTOPRAZOLE 40 MG TABLET PO (08:20)
[2024-08-18] MEDS: ASCORBIC ACID 500 MG TABLET PO (08:20)
[2024-08-18] MEDS: PRAVASTATIN SODIUM 10 MG TABLET PO (08:20)
[2024-08-18] MEDS: METOPROLOL SUCCINATE EXT REL 50 MG TABCR PO (08:20)
[2024-08-18] MEDS: NYSTATIN 100,000 UNITS/ML SUSP 5 ML ORAL.SUSP PO ×4 (08:20→21:45)
--- NOTE | 2024-08-18 14:14 | P.PNIM_ITS ---
Progress Note: A&P Assessment and Plan (1) MDRO (multiple drug resistant organisms) resistance: Status: Acute Assessment and Plan: Urine culture from 08/08 shows pseudomonas anginous sensitive to meropenem which i will start meropenem today and dc cefepime, pt mentions blood in her stool from cefepime -awaiting UC from yesterday -follow UC and BC -watch WCC (2) Frequent urinary tract infections: Code(s): N39.0 - Urinary tract infection, site not specified Status: Acute Assessment and Plan: Recurrent urinary tract infections -history of ESBL - multiple allergies to ABX (3) Chronic atrial fibrillation: Code(s): I48.20 - Chronic atrial fibrillation, unspecified Status: Acute Assessment and Plan: - chronic and stable - continue metoprolol succinate 50 mg p.o. daily (4) Hypothyroidism: Code(s): E03.9 - Hypothyroidism, unspecified Status: Acute Assessment and Plan: -chronic and stable -continue home Synthroid (5) Obesity (BMI 30-39.9): Code(s): E66.9 - Obesity, unspecified Status: Acute Assessment and Plan: - weight loss adviced (6) Chronic venous stasis dermatitis of both lower extremities: Code(s): I87.2 - Venous insufficiency (chronic) (peripheral) Status: Acute Assessment and Plan: -chronic -stocking ordered for venous insufficiency (7) Hypertension: Code(s): I10 - Essential (primary) hypertension Status: Acute Assessment and Plan: - chronic and stable - continue metoprolol Plan patient with recurrent UTI and now has MDRO (multiple drug resistant organisms) resistance, UTI and urine culture is growing Pseudomonas aeruginosa and being treated with meropenem, discuss with clinical pharmacist patient will require total of 7 days 3/7 of the antibiotics. patient stats feels much better compared to when she arrived. will continue to monitor. HLD - continue statin GERD- PPI diet- cardiac diet code- DNR dvt prop- lovenox Subjective Date/time seen: 08/18/24 14:14 Interval history: 84-year-old female with an extensive PMHx: of but not limited to recurrent UTI MDRO, pulmonary HTN, hypothyroidism, EL, chronic atrial fibrillation. The patient presented with a urinary tract infection reporting feeling terrible and weak for the past few days, the patient experience chills particularly in the afternoon. Pt states she was in ED few days ago with similar complaints discharged with oral ABX for UTI returned to ED because she did not feel better. Pt UA is positive today await report. Pt has multiple allergies states she cannot take cefepime causes bloody stool, pt is requesting iv invanz as per her primary provider. patient with recurrent UTI and now has MDRO (multiple drug resistant organisms) resistance, UTI and urine culture is growing Pseudomonas aeruginosa and being treated with meropenem, discuss with clinical pharmacist patient will require total of 7 days 3/7 of the antibiotics. patient stats feels much better compared to when she arrived. will continue to monitor. Review of Systems Review of Systems: very anxious lady mentions bloody stools from her present ABX All systems reviewed & are unremarkable except as noted in HPI and below Exam Narrative: GENERAL: Well-appearing,very anxious CHEST: Clear to auscultation. No respiratory distress. HEART: Regular rate and rhythm. Normal peripheral pulses. ABDOMEN: Soft, nontender, nondistended. EXTREMITIES: Normal range of motion. bilateral chronic venous stasis changes. SKIN: Warm, dry, no rash. NEURO: Alert and oriented x3. PSYCH: Normal mood and affect. Objective Data Vital Signs Vital Signs: Vital Signs - 24 hr 08/17/24 16:00 08/17/24 16:14 08/17/24 20:00 Temperature 36.3 C L 36.1 C L Pulse Rate 67 65 81 Respiratory Rate 18 20 Blood Pressure 149/61 H 154/82 H Pulse Oximetry 100 99 Oxygen Delivery 08/17/24 20:58 08/18/24 00:00 08/18/24 04:00 Temperature 36.8 C 36.1 C L Pulse Rate 77 75 Respiratory Rate 16 18 Blood Pressure 165/63 H 155/79 H Pulse Oximetry 97 97 Oxygen Delivery Room Air 08/18/24 08:00 08/18/24 08:20 08/18/24 11:49 Temperature 36.3 C L Pulse Rate 72 73 Respiratory Rate 18 Blood Pressure 169/65 H Pulse Oximetry 98 Oxygen Delivery Room Air Intake/Output Intake/Output: Intake & Output 08/15/24 08/16/24 08/17/24 08/18/24 23:59 23:59 23:59 23:59 Intake Total 300 1320 1323.3 400 Balance 300 1320 1323.3 400 Meds/Results Medications: Active Medications Generic Name Dose Route Start Last Admin Trade Name Freq PRN Reason Stop Dose Admin Acetaminophen 650 mg 08/15/24 11:40 08/18/24 12:59 Acetaminophen 325 Mg Tablet PO 650 mg Q4H PRN Administration Mild Pain (1-3) or Fever Ascorbic Acid 500 mg 08/16/24 09:00 08/18/24 08:20 Ascorbic Acid 500 Mg Tablet PO 500 mg DAILY RILEY Administration Cyclosporine 1 drop 08/16/24 09:00 08/18/24 08:20 Cyclosporine 0.4 Ml Ophth Solution EACH EYE 1 drop Q12HR RILEY Administration Diphenhydramine HCl 25 mg 08/17/24 08:24 08/18/24 12:59 Diphenhydramine Hcl Cap 25 Mg Capsule PO 25 mg Q6H PRN Administration Itching Enoxaparin Sodium 40 mg 08/18/24 09:00 08/18/24 08:20 Enoxaparin 40 Mg/0.4 Ml Syringe SUB-Q 40 mg DAILY RILEY Administration Fluticasone Propionate 1 spray 08/15/24 22:56 Fluticasone Propionate 0.05% Na Spr 16 Gm Btl (*Bkc) NASAL DAILY PRN allergy symptoms Meropenem 1 gm in 100 mls @ 200 mls/hr 08/16/24 22:00 08/18/24 13:02 IVPB 08/23/24 14:29 200 mls/hr Q8HR RILEY Administration Levothyroxine Sodium 112 mcg 08/16/24 06:30 08/18/24 06:11 Levothyroxine Sodium 112 Mcg Tablet PO 112 mcg DAILY@0630 RILEY Administration Levothyroxine Sodium 25 mcg 08/16/24 06:30 08/18/24 06:11 Levothyroxine Sodium 25 Mcg Tablet PO 25 mcg DAILY@0630 RILEY Administration Metoprolol Succinate 50 mg 08/16/24 09:00 08/18/24 08:20 Metoprolol Succinate Ext Rel 50 Mg Tabcr PO 50 mg DAILY RILEY Administration Nystatin 5 ml 08/17/24 09:00 08/18/24 12:59 Nystatin 100,000 Units/Ml Susp 5 Ml Oral.Susp PO 5 ml QID RILEY Administration Ondansetron HCl 4 mg 08/15/24 11:40 Ondansetron Inj 4 Mg/2 Ml Vial IV PUSH Q4H PRN Nausea Pantoprazole Sodium 40 mg 08/16/24 09:00 08/18/24 08:20 Pantoprazole 40 Mg Tablet PO 40 mg QAM RILEY Administration Polyethylene Glycol 17 gm 08/16/24 09:00 08/18/24 08:21 Polyethylene Glycol 3350 17 Gm Powd.Pack PO Not Given DAILY [facility] Pravastatin Sodium 10 mg 08/16/24 09:00 08/18/24 08:20 Pravastatin Sodium 10 Mg Tablet PO 10 mg DAILY [facility]LEY Administration Pregabalin 100 mg 08/15/24 23:50 08/18/24 06:11 Pregabalin (*Crx) 50 Mg Capsule PO 100 mg Q8HR RILEY Administration Labs Labs: Laboratory Results - last 24 hr 08/18/24 05:24 WBC 4.6 RBC 4.50 Hgb 13.2 Hct 41.9 MCV 93.1 MCH 29.3 MCHC 31.5 L RDW 13.9 Plt Count 240 MPV 10.2 Immature Gran % (Auto) 0.4 Neut % (Auto) 49.9 Lymph % (Auto) 36.8 [place] % (Auto) 7.4 Eos % (Auto) 4.6 H Baso % (Auto) 0.9 Lymph # (Auto) 1.69 [place] # (Auto) 0.3 Eos # (Auto) 0.2 Baso # (Auto) 0.0 Abs Immat Gran (auto) 0.02 Absolute Neuts (auto) 2.3 Absolute Nucleated RBC 0.000 Nucleated RBC % 0.0 Sodium 141 Potassium 3.8 Chloride 106 Carbon Dioxide 24 Anion Gap 11 BUN 13 Creatinine 0.63 L Estim Creat Clear Calc 82 Estimated GFR > 60 Glucose 123 H Calcium 10.0 Magnesium 2.3 Quality VTE Prophylaxis VTE prophylaxis: pharmacologic ordered
[2024-08-19] VITALS (7 sets, daily range): BP systolic 98–162; BP diastolic 57–68; PULSE 61–76; RESP 14–18; TEMP 36.3–36.8; O2SAT 96–100
[2024-08-19] MEDS: ACETAMINOPHEN 325 MG TABLET 650 MG PO ×3 (04:45→22:18)
[2024-08-19] MEDS: diphenhydrAMINE HCl CAP 25 MG CAPSULE PO ×3 (04:46→21:18)
[2024-08-19] MEDS: LEVOTHYROXINE SODIUM 112 MCG TABLET PO (05:45)
[2024-08-19] MEDS: LEVOTHYROXINE SODIUM 25 MCG TABLET PO (05:45)
[2024-08-19] MEDS: MEROPENEM 1 GM/NS 100 ML BAG IVPB ×3 (05:46→21:20)
[2024-08-19 05:55] LABS: Hematocrit 41.4 % (37.0-47.0); Hemoglobin 13.1 g/dL (12.0-15.0); Immature Granulocyte Percent A 0.4 % (0-0.5); Lymphocytes Absolute Auto 1.64 K/mm3 (0.9-3.2); Mean Corpuscular HGB Conc 31.6 g/dl (32-36); Mean Corpuscular Hemoglobin 29.3 pg (26-34); Mean Corpuscular Volume 92.6 fl (80-100); Nucleated Red Blood Cells Absolute Auto 0.000 K/mm3 (0.0-0.012); Nucleated Red Blood Cells Perc 0.0 % (0.0-0.2); Platelet Count Result 231 k/mm3 (150-375); Red Blood Count 4.47 M/mm3 (4.2-5.4); White Blood Count 4.5 K/mm3 (4.5-10.0)
[2024-08-19] MEDS: PREGABALIN (*CRX) 50 MG CAPSULE 100 MG PO ×3 (06:25→22:18)
[2024-08-19 07:00] LABS: Anion Gap 7 mmol/L (4-12); Blood Urea Nitrogen 11 mg/dL (7-17); Calcium 10.3 mg/dL (8.4-10.2); Carbon Dioxide 29 mmol/L (22-30); Chloride 105 mmol/L (98-107); Estimated CRCL calculation 88 ml/min; Estimated Glomerular Filt Rate > 60; Glucose 115 mg/dL (65-110); Magnesium 2.3 mg/dL (1.6-2.3); Potassium 4.0 mmol/L (3.4-5.0); Sodium 141 mmol/L (137-145)
[2024-08-19] MEDS: ASCORBIC ACID 500 MG TABLET PO (09:07)
[2024-08-19] MEDS: METOPROLOL SUCCINATE EXT REL 50 MG TABCR PO (09:07)
[2024-08-19] MEDS: NYSTATIN 100,000 UNITS/ML SUSP 5 ML ORAL.SUSP PO ×4 (09:07→21:19)
[2024-08-19] MEDS: PANTOPRAZOLE 40 MG TABLET PO (09:07)
[2024-08-19] MEDS: cycloSPORINE 0.4 ML OPHTH SOLUTION 1 DROP EACH EYE ×2 (09:07→22:18)
[2024-08-19] MEDS: PRAVASTATIN SODIUM 10 MG TABLET PO (09:07)
--- NOTE | 2024-08-19 16:43 | P.PNIM_ITS ---
Progress Note: A&P Assessment and Plan (1) MDRO (multiple drug resistant organisms) resistance: Status: Acute Assessment and Plan: Urine culture from 08/08 shows pseudomonas anginous sensitive to meropenem which i will start meropenem today and dc cefepime, pt mentions blood in her stool from cefepime -awaiting UC from yesterday -follow UC and BC -watch WCC (2) Frequent urinary tract infections: Code(s): N39.0 - Urinary tract infection, site not specified Status: Acute Assessment and Plan: Recurrent urinary tract infections -history of ESBL - multiple allergies to ABX (3) Chronic atrial fibrillation: Code(s): I48.20 - Chronic atrial fibrillation, unspecified Status: Acute Assessment and Plan: - chronic and stable - continue metoprolol succinate 50 mg p.o. daily (4) Hypothyroidism: Code(s): E03.9 - Hypothyroidism, unspecified Status: Acute Assessment and Plan: -chronic and stable -continue home Synthroid (5) Obesity (BMI 30-39.9): Code(s): E66.9 - Obesity, unspecified Status: Acute Assessment and Plan: - weight loss adviced (6) Chronic venous stasis dermatitis of both lower extremities: Code(s): I87.2 - Venous insufficiency (chronic) (peripheral) Status: Acute Assessment and Plan: -chronic -stocking ordered for venous insufficiency (7) Hypertension: Code(s): I10 - Essential (primary) hypertension Status: Acute Assessment and Plan: - chronic and stable - continue metoprolol Plan patient with recurrent UTI and now has MDRO (multiple drug resistant organisms) resistance, UTI and urine culture is growing Pseudomonas aeruginosa and being treated with meropenem, discuss with clinical pharmacist patient will require total of 7 days 4/7 of the antibiotics. patient stats feels much better compared to when she arrived. will continue to monitor. HLD - continue statin GERD- PPI diet- cardiac diet code- DNR dvt prop- lovenox Subjective Date/time seen: 08/19/24 16:43 Interval history: 84-year-old female with an extensive PMHx: of but not limited to recurrent UTI MDRO, pulmonary HTN, hypothyroidism, EL, chronic atrial fibrillation. The patient presented with a urinary tract infection reporting feeling terrible and weak for the past few days, the patient experience chills particularly in the afternoon. Pt states she was in ED few days ago with similar complaints discharged with oral ABX for UTI returned to ED because she did not feel better. Pt UA is positive today await report. Pt has multiple allergies states she cannot take cefepime causes bloody stool, pt is requesting iv invanz as per her primary provider. patient with recurrent UTI and now has MDRO (multiple drug resistant organisms) resistance, UTI and urine culture is growing Pseudomonas aeruginosa and being treated with meropenem, discuss with clinical pharmacist patient will require total of 7 days 05/25 of the antibiotics. patient stats feels much better compared to when she arrived. will continue to monitor. Review of Systems Review of Systems: very anxious lady mentions bloody stools from her present ABX All systems reviewed & are unremarkable except as noted in HPI and below Exam Narrative: GENERAL: Well-appearing,very anxious CHEST: Clear to auscultation. No respiratory distress. HEART: Regular rate and rhythm. Normal peripheral pulses. ABDOMEN: Soft, nontender, nondistended. EXTREMITIES: Normal range of motion. bilateral chronic venous stasis changes. SKIN: Warm, dry, no rash. NEURO: Alert and oriented x3. PSYCH: Normal mood and affect. Objective Data Vital Signs Vital Signs: Vital Signs - 24 hr 08/18/24 20:00 08/18/24 21:40 08/18/24 22:51 Temperature 36.8 C Pulse Rate 68 Respiratory Rate 18 Blood Pressure 149/56 H Pulse Oximetry 100 97 Oxygen Delivery Room Air Room Air 08/18/24 23:38 08/19/24 04:00 08/19/24 08:00 Temperature 36.8 C 36.8 C 36.5 C Pulse Rate 64 68 67 Respiratory Rate 17 18 14 Blood Pressure 140/50 L 159/59 H 140/57 L Pulse Oximetry 97 97 99 Oxygen Delivery 08/19/24 08:50 08/19/24 09:07 08/19/24 11:56 Temperature 36.3 C L Pulse Rate 76 76 Respiratory Rate 16 Blood Pressure 98/65 L Pulse Oximetry 98 Oxygen Delivery Room Air 08/19/24 16:00 Temperature 36.6 C Pulse Rate 61 Respiratory Rate 18 Blood Pressure 162/62 H Pulse Oximetry 100 Oxygen Delivery Intake/Output Intake/Output: Intake & Output 08/16/24 08/17/24 08/18/24 08/19/24 23:59 23:59 23:59 23:59 Intake Total 1320 1323.3 1320 2019 Balance 1320 1323.3 1320 2019 Meds/Results Medications: Active Medications Generic Name Dose Route Start Last Admin Trade Name Freq PRN Reason Stop Dose Admin Acetaminophen 650 mg 08/15/24 11:40 08/19/24 13:45 Acetaminophen 325 Mg Tablet PO 650 mg Q4H PRN Administration Mild Pain (1-3) or Fever Ascorbic Acid 500 mg 08/16/24 09:00 08/19/24 09:07 Ascorbic Acid 500 Mg Tablet PO 500 mg DAILY RILEY Administration Cyclosporine 1 drop 08/16/24 09:00 08/19/24 09:07 Cyclosporine 0.4 Ml Ophth Solution EACH EYE 1 drop Q12HR RILEY Administration Diphenhydramine HCl 25 mg 08/17/24 08:24 08/19/24 14:48 Diphenhydramine Hcl Cap 25 Mg Capsule PO 25 mg Q6H PRN Administration Itching Enoxaparin Sodium 40 mg 08/18/24 09:00 08/19/24 09:12 Enoxaparin 40 Mg/0.4 Ml Syringe SUB-Q Not Given DAILY RILEY Fluticasone Propionate 1 spray 08/15/24 22:56 Fluticasone Propionate 0.05% Na Spr 16 Gm Btl (*Bkc) NASAL DAILY PRN allergy symptoms Meropenem 1 gm in 100 mls @ 200 mls/hr 08/16/24 22:00 08/19/24 14:15 IVPB 08/23/24 14:29 Infused Q8HR [facility] Infusion Levothyroxine Sodium 112 mcg 08/16/24 06:30 08/19/24 05:45 Levothyroxine Sodium 112 Mcg Tablet PO 112 mcg DAILY@0630 RILEY Administration Levothyroxine Sodium 25 mcg 08/16/24 06:30 08/19/24 05:45 Levothyroxine Sodium 25 Mcg Tablet PO 25 mcg DAILY@0630 RILEY Administration Metoprolol Succinate 50 mg 08/16/24 09:00 08/19/24 09:07 Metoprolol Succinate Ext Rel 50 Mg Tabcr PO 50 mg DAILY RILEY Administration Miscellaneous Information 1 each 08/19/24 00:01 Gemtesa Nonformulary. Can Patient Use From Home Or Hold Till Discharge? XX 09/18/24 00:00 CLARIFY RILEY Non-Formulary Medication 75 mg 08/20/24 09:00 Gemtesa PO 09/19/24 08:59 DAILY RILEY Nystatin 5 ml 08/17/24 09:00 08/19/24 13:41 Nystatin 100,000 Units/Ml Susp 5 Ml Oral.Susp PO 5 ml QID RILEY Administration Ondansetron HCl 4 mg 08/15/24 11:40 Ondansetron Inj 4 Mg/2 Ml Vial IV PUSH Q4H PRN Nausea Pantoprazole Sodium 40 mg 08/16/24 09:00 08/19/24 09:07 Pantoprazole 40 Mg Tablet PO 40 mg QAM RILEY Administration Polyethylene Glycol 17 gm 08/16/24 09:00 08/19/24 09:08 Polyethylene Glycol 3350 17 Gm Powd.Pack PO 17 gm DAILY RILEY Administration Pravastatin Sodium 10 mg 08/16/24 09:00 08/19/24 09:07 Pravastatin Sodium 10 Mg Tablet PO 10 mg DAILY RILEY Administration Pregabalin 100 mg 08/15/24 23:50 08/19/24 13:42 Pregabalin (*Crx) 50 Mg Capsule PO 100 mg Q8HR RILEY Administration Labs Labs: Laboratory Results - last 24 hr 08/19/24 05:33 WBC 4.5 RBC 4.47 Hgb 13.1 Hct 41.4 MCV 92.6 MCH 29.3 MCHC 31.6 L RDW 14.1 Plt Count 231 MPV 10.1 Immature Gran % (Auto) 0.4 Neut % (Auto) 48.9 Lymph % (Auto) 36.5 [place] % (Auto) 8.2 Eos % (Auto) 4.9 H Baso % (Auto) 1.1 Lymph # (Auto) 1.64 [place] # (Auto) 0.4 Eos # (Auto) 0.2 Baso # (Auto) 0.1 Abs Immat Gran (auto) 0.02 Absolute Neuts (auto) 2.2 Absolute Nucleated RBC 0.000 Nucleated RBC % 0.0 Sodium 141 Potassium 4.0 Chloride 105 Carbon Dioxide 29 Anion Gap 7 BUN 11 Creatinine 0.59 L Estim Creat Clear Calc 88 Estimated GFR > 60 Glucose 115 H Calcium 10.3 H Magnesium 2.3 Quality VTE Prophylaxis VTE prophylaxis: pharmacologic ordered
--- NOTE | 2024-08-19 17:02 | PHAR ---
HOME MED GEMTESA 75 MG TAB; TAKE 1 TABLET BY MOUTH ONCE DAILY. VERIFIED BY PHARMACY.
[2024-08-20] VITALS (8 sets, daily range): BP systolic 123–153; BP diastolic 50–81; PULSE 60–70; RESP 16–18; TEMP 36.1–36.5; O2SAT 94–99
[2024-08-20 05:07] LABS: Hematocrit 39.6 % (37.0-47.0); Hemoglobin 12.7 g/dL (12.0-15.0); Immature Granulocyte Percent A 0.4 % (0-0.5); Lymphocytes Absolute Auto 1.68 K/mm3 (0.9-3.2); Mean Corpuscular HGB Conc 32.1 g/dl (32-36); Mean Corpuscular Hemoglobin 29.4 pg (26-34); Mean Corpuscular Volume 91.7 fl (80-100); Nucleated Red Blood Cells Absolute Auto 0.000 K/mm3 (0.0-0.012); Nucleated Red Blood Cells Perc 0.0 % (0.0-0.2); Platelet Count Result 213 k/mm3 (150-375); Red Blood Count 4.32 M/mm3 (4.2-5.4); White Blood Count 4.5 K/mm3 (4.5-10.0)
[2024-08-20] MEDS: diphenhydrAMINE HCl CAP 25 MG CAPSULE PO ×2 (05:09→20:58)
[2024-08-20] MEDS: MEROPENEM 1 GM/NS 100 ML BAG IVPB ×3 (05:10→21:03)
[2024-08-20 05:18] LABS: Anion Gap 8 mmol/L (4-12); Blood Urea Nitrogen 11 mg/dL (7-17); Calcium 10.1 mg/dL (8.4-10.2); Carbon Dioxide 24 mmol/L (22-30); Chloride 107 mmol/L (98-107); Estimated CRCL calculation 90 ml/min; Estimated Glomerular Filt Rate > 60; Glucose 111 mg/dL (65-110); Magnesium 2.3 mg/dL (1.6-2.3); Potassium 4.1 mmol/L (3.4-5.0); Sodium 139 mmol/L (137-145)
[2024-08-20] MEDS: ACETAMINOPHEN 325 MG TABLET 650 MG PO ×3 (05:47→20:58)
[2024-08-20] MEDS: LEVOTHYROXINE SODIUM 112 MCG TABLET PO (05:47)
[2024-08-20] MEDS: PREGABALIN (*CRX) 50 MG CAPSULE 100 MG PO ×3 (05:47→21:02)
[2024-08-20] MEDS: LEVOTHYROXINE SODIUM 25 MCG TABLET PO (05:47)
[2024-08-20] MEDS: METOPROLOL SUCCINATE EXT REL 50 MG TABCR PO (08:09)
[2024-08-20] MEDS: PANTOPRAZOLE 40 MG TABLET PO (08:09)
[2024-08-20] MEDS: ASCORBIC ACID 500 MG TABLET PO (08:09)
[2024-08-20] MEDS: PRAVASTATIN SODIUM 10 MG TABLET PO (08:09)
[2024-08-20] MEDS: VIBEGRON 75 MG 75 EACH PO (08:10)
[2024-08-20] MEDS: cycloSPORINE 0.4 ML OPHTH SOLUTION 1 DROP EACH EYE ×2 (08:15→21:03)
[2024-08-20] MEDS: NYSTATIN 100,000 UNITS/ML SUSP 5 ML ORAL.SUSP PO ×4 (08:15→21:03)
[2024-08-20] MEDS: ENOXAPARIN 40 MG/0.4 ML SYRINGE SUB-Q (08:15)
--- NOTE | 2024-08-20 14:41 | P.PNIM_ITS ---
Progress Note: A&P Assessment and Plan (1) MDRO (multiple drug resistant organisms) resistance: Status: Acute Assessment and Plan: Urine culture from 08/08 shows pseudomonas anginous sensitive to meropenem which i will start meropenem today and dc cefepime, pt mentions blood in her stool from cefepime -awaiting UC from yesterday -follow UC and BC -watch WCC (2) Frequent urinary tract infections: Code(s): N39.0 - Urinary tract infection, site not specified Status: Acute Assessment and Plan: Recurrent urinary tract infections -history of ESBL - multiple allergies to ABX (3) Chronic atrial fibrillation: Code(s): I48.20 - Chronic atrial fibrillation, unspecified Status: Acute Assessment and Plan: - chronic and stable - continue metoprolol succinate 50 mg p.o. daily (4) Hypothyroidism: Code(s): E03.9 - Hypothyroidism, unspecified Status: Acute Assessment and Plan: -chronic and stable -continue home Synthroid (5) Obesity (BMI 30-39.9): Code(s): E66.9 - Obesity, unspecified Status: Acute Assessment and Plan: - weight loss adviced (6) Chronic venous stasis dermatitis of both lower extremities: Code(s): I87.2 - Venous insufficiency (chronic) (peripheral) Status: Acute Assessment and Plan: -chronic -stocking ordered for venous insufficiency (7) Hypertension: Code(s): I10 - Essential (primary) hypertension Status: Acute Assessment and Plan: - chronic and stable - continue metoprolol Plan patient with recurrent UTI and now has MDRO (multiple drug resistant organisms) resistance, UTI and urine culture is growing Pseudomonas aeruginosa and being treated with meropenem, discuss with clinical pharmacist patient will require total of 7 days 5/7 of the antibiotics. patient stats feels much better compared to when she arrived. her nurse is present, will continue to monitor. HLD - continue statin GERD- PPI diet- cardiac diet code- DNR dvt prop- lovenox Subjective Date/time seen: 08/20/24 14:41 Interval history: 84-year-old female with an extensive PMHx: of but not limited to recurrent UTI MDRO, pulmonary HTN, hypothyroidism, EL, chronic atrial fibrillation. The patient presented with a urinary tract infection reporting feeling terrible and weak for the past few days, the patient experience chills particularly in the afternoon. Pt states she was in ED few days ago with similar complaints discharged with oral ABX for UTI returned to ED because she did not feel better. Pt UA is positive today await report. Pt has multiple allergies states she cannot take cefepime causes bloody stool, pt is requesting iv invanz as per her primary provider. patient with recurrent UTI and now has MDRO (multiple drug resistant organisms) resistance, UTI and urine culture is growing Pseudomonas aeruginosa and being treated with meropenem, discuss with clinical pharmacist patient will require total of 7 days 5/7 of the antibiotics. patient stats feels much better compared to when she arrived. her nurse is present, will continue to monitor. Review of Systems Review of Systems: very anxious lady mentions bloody stools from her present ABX All systems reviewed & are unremarkable except as noted in HPI and below Exam Narrative: GENERAL: Well-appearing,very anxious CHEST: Clear to auscultation. No respiratory distress. HEART: Regular rate and rhythm. Normal peripheral pulses. ABDOMEN: Soft, nontender, nondistended. EXTREMITIES: Normal range of motion. bilateral chronic venous stasis changes. SKIN: Warm, dry, no rash. NEURO: Alert and oriented x3. PSYCH: Normal mood and affect. Objective Data Vital Signs Vital Signs: Vital Signs - 24 hr 08/19/24 16:00 08/19/24 20:00 08/19/24 21:15 Temperature 36.6 C 36.4 C L Pulse Rate 61 65 Respiratory Rate 18 18 Blood Pressure 162/62 H 156/59 H Pulse Oximetry 100 96 Oxygen Delivery Room Air 08/19/24 23:50 08/20/24 03:37 08/20/24 08:00 Temperature 36.4 C 36.5 C 36.4 C L Pulse Rate 64 66 63 Respiratory Rate 17 18 16 Blood Pressure 150/68 H 153/64 H 123/50 L Pulse Oximetry 96 94 98 Oxygen Delivery 08/20/24 08:00 08/20/24 08:09 08/20/24 11:53 Temperature 36.1 C L Pulse Rate 70 62 Respiratory Rate 16 Blood Pressure 148/62 H Pulse Oximetry 99 Oxygen Delivery Room Air Intake/Output Intake/Output: Intake & Output 08/17/24 08/18/24 08/19/24 08/20/24 23:59 23:59 23:59 23:59 Intake Total 1323.3 1320 2358 1030 Balance 1323.3 1320 2355 1030 Meds/Results Medications: Active Medications Generic Name Dose Route Start Last Admin Trade Name Freq PRN Reason Stop Dose Admin Acetaminophen 650 mg 08/15/24 11:40 08/20/24 13:54 Acetaminophen 325 Mg Tablet PO 650 mg Q4H PRN Administration Mild Pain (1-3) or Fever Ascorbic Acid 500 mg 08/16/24 09:00 08/20/24 08:09 Ascorbic Acid 500 Mg Tablet PO 500 mg DAILY RILEY Administration Cyclosporine 1 drop 08/16/24 09:00 08/20/24 08:15 Cyclosporine 0.4 Ml Ophth Solution EACH EYE 1 drop Q12HR RILEY Administration Diphenhydramine HCl 25 mg 08/17/24 08:24 08/20/24 05:09 Diphenhydramine Hcl Cap 25 Mg Capsule PO 25 mg Q6H PRN Administration Itching Enoxaparin Sodium 40 mg 08/18/24 09:00 08/20/24 08:15 Enoxaparin 40 Mg/0.4 Ml Syringe SUB-Q 40 mg DAILY RILEY Administration Fluticasone Propionate 1 spray 08/15/24 22:56 Fluticasone Propionate 0.05% Na Spr 16 Gm Btl (*Bkc) NASAL DAILY PRN allergy symptoms Meropenem 1 gm in 100 mls @ 200 mls/hr 08/16/24 22:00 08/20/24 13:53 IVPB 08/23/24 14:29 200 mls/hr Q8HR RILEY Administration Levothyroxine Sodium 112 mcg 08/16/24 06:30 08/20/24 05:47 Levothyroxine Sodium 112 Mcg Tablet PO 112 mcg DAILY@0630 RILEY Administration Levothyroxine Sodium 25 mcg 08/16/24 06:30 08/20/24 05:47 Levothyroxine Sodium 25 Mcg Tablet PO 25 mcg DAILY@0630 RILEY Administration Metoprolol Succinate 50 mg 08/16/24 09:00 08/20/24 08:09 Metoprolol Succinate Ext Rel 50 Mg Tabcr PO 50 mg DAILY RILEY Administration Home Gemtesa 75 75 mg 08/20/24 09:00 08/20/24 08:10 Mg PO 09/19/24 08:59 75 mg DAILY RILEY Administration Nystatin 5 ml 08/17/24 09:00 08/20/24 13:53 Nystatin 100,000 Units/Ml Susp 5 Ml Oral.Susp PO 5 ml QID RILEY Administration Ondansetron HCl 4 mg 08/15/24 11:40 Ondansetron Inj 4 Mg/2 Ml Vial IV PUSH Q4H PRN Nausea Pantoprazole Sodium 40 mg 08/16/24 09:00 08/20/24 08:09 Pantoprazole 40 Mg Tablet PO 40 mg QAM RILEY Administration Polyethylene Glycol 17 gm 08/16/24 09:00 08/20/24 08:10 Polyethylene Glycol 3350 17 Gm Powd.Pack PO 17 gm DAILY RILEY Administration Pravastatin Sodium 10 mg 08/16/24 09:00 08/20/24 08:09 Pravastatin Sodium 10 Mg Tablet PO 10 mg DAILY RILEY Administration Pregabalin 100 mg 08/15/24 23:50 08/20/24 13:53 Pregabalin (*Crx) 50 Mg Capsule PO 100 mg Q8HR RILEY Administration Labs Labs: Laboratory Results - last 24 hr 08/20/24 05:00 WBC 4.5 RBC 4.32 Hgb 12.7 Hct 39.6 MCV 91.7 MCH 29.4 MCHC 32.1 RDW 14.0 Plt Count 213 MPV 9.6 Immature Gran % (Auto) 0.4 Neut % (Auto) 48.3 Lymph % (Auto) 37.2 [place] % (Auto) 8.6 H Eos % (Auto) 4.4 Baso % (Auto) 1.1 Lymph # (Auto) 1.68 [place] # (Auto) 0.4 Eos # (Auto) 0.2 Baso # (Auto) 0.1 Abs Immat Gran (auto) 0.02 Absolute Neuts (auto) 2.2 Absolute Nucleated RBC 0.000 Nucleated RBC % 0.0 Sodium 139 Potassium 4.1 Chloride 107 Carbon Dioxide 24 Anion Gap 8 BUN 11 Creatinine 0.57 L Estim Creat Clear Calc 90 Estimated GFR > 60 Glucose 111 H Calcium 10.1 Magnesium 2.3 Quality VTE Prophylaxis VTE prophylaxis: pharmacologic ordered
[2024-08-21] VITALS (7 sets, daily range): BP systolic 141–171; BP diastolic 58–75; PULSE 60–68; RESP 14–18; TEMP 36.1–36.3; O2SAT 93–100
[2024-08-21] MEDS: ACETAMINOPHEN 325 MG TABLET 650 MG PO ×2 (05:10→21:36)
[2024-08-21] MEDS: MEROPENEM 1 GM/NS 100 ML BAG IVPB ×3 (05:10→21:38)
[2024-08-21] MEDS: diphenhydrAMINE HCl CAP 25 MG CAPSULE PO ×3 (05:11→21:35)
[2024-08-21] MEDS: PREGABALIN (*CRX) 50 MG CAPSULE 100 MG PO ×3 (05:11→21:37)
[2024-08-21] MEDS: LEVOTHYROXINE SODIUM 25 MCG TABLET PO (05:11)
[2024-08-21] MEDS: LEVOTHYROXINE SODIUM 112 MCG TABLET PO (05:11)
[2024-08-21 05:27] LABS: Hematocrit 44.8 % (37.0-47.0); Hemoglobin 14.0 g/dL (12.0-15.0); Immature Granulocyte Percent A 0.4 % (0-0.5); Lymphocytes Absolute Auto 1.93 K/mm3 (0.9-3.2); Mean Corpuscular HGB Conc 31.3 g/dl (32-36); Mean Corpuscular Hemoglobin 28.9 pg (26-34); Mean Corpuscular Volume 92.4 fl (80-100); Nucleated Red Blood Cells Absolute Auto 0.000 K/mm3 (0.0-0.012); Nucleated Red Blood Cells Perc 0.0 % (0.0-0.2); Platelet Count Result 231 k/mm3 (150-375); Red Blood Count 4.85 M/mm3 (4.2-5.4); White Blood Count 4.9 K/mm3 (4.5-10.0)
[2024-08-21 05:46] LABS: Anion Gap 9 mmol/L (4-12); Blood Urea Nitrogen 13 mg/dL (7-17); Calcium 10.4 mg/dL (8.4-10.2); Carbon Dioxide 28 mmol/L (22-30); Chloride 104 mmol/L (98-107); Estimated CRCL calculation 82 ml/min; Estimated Glomerular Filt Rate > 60; Glucose 108 mg/dL (65-110); Potassium 4.0 mmol/L (3.4-5.0); Sodium 141 mmol/L (137-145)
[2024-08-21 05:48] LABS: Magnesium 2.3 mg/dL (1.6-2.3)
[2024-08-21] MEDS: METOPROLOL SUCCINATE EXT REL 50 MG TABCR PO (08:41)
[2024-08-21] MEDS: PRAVASTATIN SODIUM 10 MG TABLET PO (08:41)
[2024-08-21] MEDS: PANTOPRAZOLE 40 MG TABLET PO (08:42)
[2024-08-21] MEDS: cycloSPORINE 0.4 ML OPHTH SOLUTION 1 DROP EACH EYE ×2 (08:47→21:37)
[2024-08-21] MEDS: ASCORBIC ACID 500 MG TABLET PO (08:47)
[2024-08-21] MEDS: ENOXAPARIN 40 MG/0.4 ML SYRINGE SUB-Q (08:47)
[2024-08-21] MEDS: VIBEGRON 75 MG 75 EACH PO (08:48)
[2024-08-21] MEDS: NYSTATIN 100,000 UNITS/ML SUSP 5 ML ORAL.SUSP PO ×4 (08:50→21:37)
[2024-08-21] MEDS: ERGOCALCIFEROL (VITAMIN D2) 1,250 MCG (50,000 UNITS) CAPSULE 1250 MCG PO (10:27)
[2024-08-21] MEDS: EUCERIN CREAM 120 GM JAR 1 APPLIC TOPICAL ×2 (10:27→16:27)
--- NOTE | 2024-08-21 11:34 | PCNWS ---
Weekly nutritional screen. Patient is tolerating current heart healthy diet with adequate intake 50-100%. No weight loss reported. No nutritional recommendations at this time.
--- NOTE | 2024-08-21 13:25 | PM.IMPN ---
Progress Note: A&P Assessment and Plan (1) MDRO (multiple drug resistant organisms) resistance: Status: Acute Assessment and Plan: Urine culture from 08/08 shows pseudomonas anginous sensitive to meropenem which i will start meropenem today and dc cefepime, pt mentions blood in her stool from cefepime -awaiting UC from yesterday -follow UC and BC -watch WCC (2) Frequent urinary tract infections: Code(s): N39.0 - Urinary tract infection, site not specified Status: Acute Assessment and Plan: Recurrent urinary tract infections -history of ESBL - multiple allergies to ABX (3) Chronic atrial fibrillation: Code(s): I48.20 - Chronic atrial fibrillation, unspecified Status: Acute Assessment and Plan: - chronic and stable - continue metoprolol succinate 50 mg p.o. daily (4) Hypothyroidism: Code(s): E03.9 - Hypothyroidism, unspecified Status: Acute Assessment and Plan: -chronic and stable -continue home Synthroid (5) Obesity (BMI 30-39.9): Code(s): E66.9 - Obesity, unspecified Status: Acute Assessment and Plan: - weight loss adviced (6) Chronic venous stasis dermatitis of both lower extremities: Code(s): I87.2 - Venous insufficiency (chronic) (peripheral) Status: Acute Assessment and Plan: -chronic -stocking ordered for venous insufficiency (7) Hypertension: Code(s): I10 - Essential (primary) hypertension Status: Acute Assessment and Plan: - chronic and stable - continue metoprolol Plan patient with recurrent UTI and now has MDRO (multiple drug resistant organisms) resistance, UTI and urine culture is growing Pseudomonas aeruginosa and being treated with meropenem, discuss with clinical pharmacist patient will require total of 7 days 6/7 of the antibiotics. patient stats feels much better compared to when she arrived. her nurse is present, will continue to monitor. HLD - continue statin GERD- PPI diet- cardiac diet code- DNR dvt prop- lovenox Subjective Date/time seen: 08/21/24 13:25 Interval history: 84-year-old female with an extensive PMHx: of but not limited to recurrent UTI MDRO, pulmonary HTN, hypothyroidism, EL, chronic atrial fibrillation. The patient presented with a urinary tract infection reporting feeling terrible and weak for the past few days, the patient experience chills particularly in the afternoon. Pt states she was in ED few days ago with similar complaints discharged with oral ABX for UTI returned to ED because she did not feel better. Pt UA is positive today await report. Pt has multiple allergies states she cannot take cefepime causes bloody stool, pt is requesting iv invanz as per her primary provider. patient with recurrent UTI and now has MDRO (multiple drug resistant organisms) resistance, UTI and urine culture is growing Pseudomonas aeruginosa and being treated with meropenem, discuss with clinical pharmacist patient will require total of 7 days 6/7 of the antibiotics. patient stats feels much better compared to when she arrived. her nurse is present, will continue to monitor. Review of Systems Review of Systems: very anxious lady mentions bloody stools from her present ABX All systems reviewed & are unremarkable except as noted in HPI and below Exam Narrative: GENERAL: Well-appearing,very anxious CHEST: Clear to auscultation. No respiratory distress. HEART: Regular rate and rhythm. Normal peripheral pulses. ABDOMEN: Soft, nontender, nondistended. EXTREMITIES: Normal range of motion. bilateral chronic venous stasis changes. SKIN: Warm, dry, no rash. NEURO: Alert and oriented x3. PSYCH: Normal mood and affect. Objective Data Vital Signs Vital Signs: Vital Signs - 24 hr 08/20/24 15:53 08/20/24 20:00 08/20/24 20:46 Temperature 36.1 C L 36.4 C L Pulse Rate 61 60 Respiratory Rate 16 16 Blood Pressure 134/52 L 148/81 H Pulse Oximetry 96 97 94 Oxygen Delivery Room Air Fraction of Inspired Oxygen 21 08/20/24 23:49 08/21/24 04:00 08/21/24 08:00 Temperature 36.2 C L 36.3 C L 36.2 C L Pulse Rate 63 61 66 Respiratory Rate 16 16 14 Blood Pressure 149/58 H 171/58 H 166/75 H Pulse Oximetry 98 98 93 Oxygen Delivery Fraction of Inspired Oxygen 08/21/24 08:41 08/21/24 08:49 08/21/24 12:00 Temperature 36.1 C L Pulse Rate 68 68 61 Respiratory Rate 16 18 Blood Pressure 141/61 H Pulse Oximetry 93 100 Oxygen Delivery Room Air Fraction of Inspired Oxygen Intake/Output Intake/Output: Intake & Output 07/03/1408/19/24 08/20/24 08/21/24 23:59 23:59 23:59 23:59 Intake Total 1320 2358 2138 2250 Balance 1320 2358 2138 2250 Meds/Results Medications: Active Medications Generic Name Dose Route Start Last Admin Trade Name Freq PRN Reason Stop Dose Admin Acetaminophen 650 mg 08/15/24 11:40 08/21/24 05:10 Acetaminophen 325 Mg Tablet PO 650 mg Q4H PRN Administration Mild Pain (1-3) or Fever Ascorbic Acid 500 mg 08/16/24 09:00 08/21/24 08:47 Ascorbic Acid 500 Mg Tablet PO 500 mg DAILY RILEY Administration Cyclosporine 1 drop 08/16/24 09:00 08/21/24 08:47 Cyclosporine 0.4 Ml Ophth Solution EACH EYE 1 drop Q12HR RILEY Administration Diphenhydramine HCl 25 mg 08/17/24 08:24 08/21/24 12:08 Diphenhydramine Hcl Cap 25 Mg Capsule PO 25 mg Q6H PRN Administration Itching Enoxaparin Sodium 40 mg 08/18/24 09:00 08/21/24 08:47 Enoxaparin 40 Mg/0.4 Ml Syringe SUB-Q 40 mg DAILY RILEY Administration Ergocalciferol 1,250 mcg 08/21/24 09:00 08/21/24 10:27 Ergocalciferol (Vitamin D2) 1,250 Mcg (50,000 Units) Capsule PO 1,250 mcg Fr@0900 RILEY Administration Fluticasone Propionate 1 spray 08/15/24 22:56 Fluticasone Propionate 0.05% Na Spr 16 Gm Btl (*Bkc) NASAL DAILY PRN allergy symptoms Meropenem 1 gm in 100 mls @ 200 mls/hr 08/16/24 22:00 08/21/24 13:08 IVPB 08/23/24 14:29 200 mls/hr Q8HR RILEY Administration Levothyroxine Sodium 112 mcg 08/16/24 06:30 08/21/24 05:11 Levothyroxine Sodium 112 Mcg Tablet PO 112 mcg DAILY@0630 RILEY Administration Levothyroxine Sodium 25 mcg 08/16/24 06:30 08/21/24 05:11 Levothyroxine Sodium 25 Mcg Tablet PO 25 mcg DAILY@0630 RILEY Administration Metoprolol Succinate 50 mg 08/16/24 09:00 08/21/24 08:41 Metoprolol Succinate Ext Rel 50 Mg Tabcr PO 50 mg DAILY RILEY Administration Multi-Ingred Cream/Lotion/Oil/Oint 1 applic 08/21/24 09:35 08/21/24 10:27 Eucerin Cream 120 Gm Jar TOPICAL 1 applic BID RILEY Administration Home Gemtesa 75 75 mg 08/20/24 09:00 08/21/24 08:48 Mg PO 09/19/24 08:59 75 mg DAILY RILEY Administration Nystatin 5 ml 08/17/24 09:00 08/21/24 12:09 Nystatin 100,000 Units/Ml Susp 5 Ml Oral.Susp PO 5 ml QID RILEY Administration Ondansetron HCl 4 mg 08/15/24 11:40 Ondansetron Inj 4 Mg/2 Ml Vial IV PUSH Q4H PRN Nausea Pantoprazole Sodium 40 mg 08/16/24 09:00 08/21/24 08:42 Pantoprazole 40 Mg Tablet PO 40 mg QAM RILEY Administration Polyethylene Glycol 17 gm 08/16/24 09:00 08/21/24 08:49 Polyethylene Glycol 3350 17 Gm Powd.Pack PO 17 gm DAILY RILEY Administration Pravastatin Sodium 10 mg 08/16/24 09:00 08/21/24 08:41 Pravastatin Sodium 10 Mg Tablet PO 10 mg DAILY RILEY Administration Pregabalin 100 mg 08/15/24 23:50 08/21/24 13:09 Pregabalin (*Crx) 50 Mg Capsule PO 100 mg Q8HR RILEY Administration Labs Labs: Laboratory Results - last 24 hr 08/21/24 05:16 WBC 4.9 RBC 4.85 Hgb 14.0 Hct 44.8 MCV 92.4 MCH 28.9 MCHC 31.3 L RDW 14.1 Plt Count 231 MPV 9.7 Immature Gran % (Auto) 0.4 Neut % (Auto) 47.6 Lymph % (Auto) 39.5 [place] % (Auto) 7.0 Eos % (Auto) 4.7 H Baso % (Auto) 0.8 Lymph # (Auto) 1.93 [place] # (Auto) 0.3 Eos # (Auto) 0.2 Baso # (Auto) 0.0 Abs Immat Gran (auto) 0.02 Absolute Neuts (auto) 2.3 Absolute Nucleated RBC 0.000 Nucleated RBC % 0.0 Sodium 141 Potassium 4.0 Chloride 104 Carbon Dioxide 28 Anion Gap 9 BUN 13 Creatinine 0.64 L Estim Creat Clear Calc 82 Estimated GFR > 60 Glucose 108 Calcium 10.4 H Magnesium 2.3 Quality VTE Prophylaxis VTE prophylaxis: pharmacologic ordered
[2024-08-22] VITALS: BP 157/60; PULSE 62; RESP 18; TEMP 36.1; O2SAT 98
[2024-08-22 03:26] VITALS: BP 140/87; PULSE 81; RESP 18; TEMP 36.4; O2SAT 95
[2024-08-22 05:18] LABS: Hematocrit 40.0 % (37.0-47.0); Hemoglobin 12.7 g/dL (12.0-15.0); Immature Granulocyte Percent A 0.2 % (0-0.5); Lymphocytes Absolute Auto 1.86 K/mm3 (0.9-3.2); Mean Corpuscular HGB Conc 31.8 g/dl (32-36); Mean Corpuscular Hemoglobin 29.2 pg (26-34); Mean Corpuscular Volume 92.0 fl (80-100); Nucleated Red Blood Cells Absolute Auto 0.000 K/mm3 (0.0-0.012); Nucleated Red Blood Cells Perc 0.0 % (0.0-0.2); Platelet Count Result 221 k/mm3 (150-375); Red Blood Count 4.35 M/mm3 (4.2-5.4); White Blood Count 4.7 K/mm3 (4.5-10.0)
[2024-08-22 05:29] LABS: Anion Gap 6 mmol/L (4-12); Blood Urea Nitrogen 12 mg/dL (7-17); Calcium 9.9 mg/dL (8.4-10.2); Carbon Dioxide 25 mmol/L (22-30); Chloride 107 mmol/L (98-107); Estimated CRCL calculation 92 ml/min; Estimated Glomerular Filt Rate > 60; Glucose 103 mg/dL (65-110); Magnesium 2.3 mg/dL (1.6-2.3); Potassium 4.1 mmol/L (3.4-5.0); Sodium 138 mmol/L (137-145)
[2024-08-22] MEDS: ACETAMINOPHEN 325 MG TABLET 650 MG PO ×3 (05:56→21:54)
[2024-08-22] MEDS: diphenhydrAMINE HCl CAP 25 MG CAPSULE PO ×3 (05:57→21:55)
[2024-08-22] MEDS: LEVOTHYROXINE SODIUM 112 MCG TABLET PO (05:58)
[2024-08-22] MEDS: LEVOTHYROXINE SODIUM 25 MCG TABLET PO (05:58)
[2024-08-22] MEDS: PREGABALIN (*CRX) 50 MG CAPSULE 100 MG PO ×3 (05:58→22:06)
[2024-08-22] MEDS: MEROPENEM 1 GM/NS 100 ML BAG IVPB ×3 (06:00→21:59)
[2024-08-22] MEDS: NYSTATIN 100,000 UNITS/ML SUSP 5 ML ORAL.SUSP PO ×4 (08:19→22:06)
[2024-08-22] MEDS: ENOXAPARIN 40 MG/0.4 ML SYRINGE SUB-Q (08:19)
[2024-08-22] MEDS: cycloSPORINE 0.4 ML OPHTH SOLUTION 1 DROP EACH EYE ×2 (08:20→21:55)
[2024-08-22] MEDS: VIBEGRON 75 MG 75 EACH PO (08:20)
[2024-08-22] MEDS: PRAVASTATIN SODIUM 10 MG TABLET PO (08:20)
[2024-08-22 08:22] VITALS: PULSE 80
[2024-08-22] MEDS: ASCORBIC ACID 500 MG TABLET PO (08:22)
[2024-08-22] MEDS: METOPROLOL SUCCINATE EXT REL 50 MG TABCR PO (08:22)
[2024-08-22 08:23] VITALS: PULSE 80; RESP 18; O2SAT 95
[2024-08-22] MEDS: PANTOPRAZOLE 40 MG TABLET PO (08:23)
[2024-08-22] MEDS: EUCERIN CREAM 120 GM JAR 1 APPLIC TOPICAL ×2 (08:23→16:19)
[2024-08-22 14:30] VITALS: BP 144/59; PULSE 62; RESP 18; TEMP 36.3; O2SAT 100
--- NOTE | 2024-08-22 15:50 | PM.IMPN ---
Progress Note: A&P Assessment and Plan (1) MDRO (multiple drug resistant organisms) resistance: Status: Acute Assessment and Plan: Urine culture from 08/08 shows pseudomonas anginous sensitive to meropenem which i will start meropenem today and dc cefepime, pt mentions blood in her stool from cefepime -awaiting UC from yesterday -follow UC and BC -watch WCC (2) Frequent urinary tract infections: Code(s): N39.0 - Urinary tract infection, site not specified Status: Acute Assessment and Plan: Recurrent urinary tract infections -history of ESBL - multiple allergies to ABX (3) Chronic atrial fibrillation: Code(s): I48.20 - Chronic atrial fibrillation, unspecified Status: Acute Assessment and Plan: - chronic and stable - continue metoprolol succinate 50 mg p.o. daily (4) Hypothyroidism: Code(s): E03.9 - Hypothyroidism, unspecified Status: Acute Assessment and Plan: -chronic and stable -continue home Synthroid (5) Obesity (BMI 30-39.9): Code(s): E66.9 - Obesity, unspecified Status: Acute Assessment and Plan: - weight loss adviced (6) Chronic venous stasis dermatitis of both lower extremities: Code(s): I87.2 - Venous insufficiency (chronic) (peripheral) Status: Acute Assessment and Plan: -chronic -stocking ordered for venous insufficiency (7) Hypertension: Code(s): I10 - Essential (primary) hypertension Status: Acute Assessment and Plan: - chronic and stable - continue metoprolol Plan patient with recurrent UTI and now has MDRO (multiple drug resistant organisms) resistance, UTI and urine culture is growing Pseudomonas aeruginosa and being treated with meropenem, discuss with clinical pharmacist patient will require total of 7 days 6/7 of the antibiotics. patient will receive her last dose of antibiotics tomorrow, and will be discahrged, patient stats feels much better compared to when she arrived. will continue to monitor. HLD - continue statin GERD- PPI diet- cardiac diet code- DNR dvt prop- lovenox Subjective Date/time seen: 08/22/24 15:50 Interval history: 84-year-old female with an extensive PMHx: of but not limited to recurrent UTI MDRO, pulmonary HTN, hypothyroidism, EL, chronic atrial fibrillation. The patient presented with a urinary tract infection reporting feeling terrible and weak for the past few days, the patient experience chills particularly in the afternoon. Pt states she was in ED few days ago with similar complaints discharged with oral ABX for UTI returned to ED because she did not feel better. Pt UA is positive today await report. Pt has multiple allergies states she cannot take cefepime causes bloody stool, pt is requesting iv invanz as per her primary provider. patient with recurrent UTI and now has MDRO (multiple drug resistant organisms) resistance, UTI and urine culture is growing Pseudomonas aeruginosa and being treated with meropenem, discuss with clinical pharmacist patient will require total of 7 days 6/7 of the antibiotics. patient will receive her last dose of antibiotics tomorrow, and will be discahrged, patient stats feels much better compared to when she arrived. will continue to monitor. Review of Systems Review of Systems: very anxious lady mentions bloody stools from her present ABX All systems reviewed & are unremarkable except as noted in HPI and below Exam Narrative: GENERAL: Well-appearing,very anxious CHEST: Clear to auscultation. No respiratory distress. HEART: Regular rate and rhythm. Normal peripheral pulses. ABDOMEN: Soft, nontender, nondistended. EXTREMITIES: Normal range of motion. bilateral chronic venous stasis changes. SKIN: Warm, dry, no rash. NEURO: Alert and oriented x3. PSYCH: Normal mood and affect. Objective Data Vital Signs Vital Signs: Vital Signs - 24 hr 08/21/24 16:00 08/21/24 20:00 08/21/24 20:00 Temperature 36.1 C L 36.3 C L Pulse Rate 60 63 Respiratory Rate 16 16 Blood Pressure 149/68 H 163/70 H Pulse Oximetry 100 100 Oxygen Delivery Room Air 08/22/24 00:00 08/22/24 03:26 08/22/24 08:22 Temperature 36.1 C L 36.4 C Pulse Rate 62 81 80 Respiratory Rate 18 18 Blood Pressure 157/60 H 140/87 Pulse Oximetry 98 95 Oxygen Delivery 08/22/24 08:23 08/22/24 14:30 Temperature 36.3 C L Pulse Rate 80 62 Respiratory Rate 18 18 Blood Pressure 144/59 H Pulse Oximetry 95 100 Oxygen Delivery Room Air Intake/Output Intake/Output: Intake & Output 08/19/24 08/20/24 08/21/2408/22/25 23:59 23:59 23:59 23:59 Intake Total 2358 2138 2940 950 Balance 2358 2138 2940 950 Meds/Results Medications: Active Medications Generic Name Dose Route Start Last Admin Trade Name Freq PRN Reason Stop Dose Admin Acetaminophen 650 mg 08/15/24 11:40 08/22/24 10:57 Acetaminophen 325 Mg Tablet PO 650 mg Q4H PRN Administration Mild Pain (1-3) or Fever Ascorbic Acid 500 mg 08/16/24 09:00 08/22/24 08:22 Ascorbic Acid 500 Mg Tablet PO 500 mg DAILY RILEY Administration Cyclosporine 1 drop 08/16/24 09:00 08/22/24 08:20 Cyclosporine 0.4 Ml Ophth Solution EACH EYE 1 drop Q12HR RILEY Administration Diphenhydramine HCl 25 mg 08/17/24 08:24 08/22/24 13:50 Diphenhydramine Hcl Cap 25 Mg Capsule PO 25 mg Q6H PRN Administration Itching Enoxaparin Sodium 40 mg 08/18/24 09:00 08/22/24 08:19 Enoxaparin 40 Mg/0.4 Ml Syringe SUB-Q 40 mg DAILY RILEY Administration Ergocalciferol 1,250 mcg 08/21/24 09:00 08/21/24 10:27 Ergocalciferol (Vitamin D2) 1,250 Mcg (50,000 Units) Capsule PO 1,250 mcg Fr@0900 RILEY Administration Fluticasone Propionate 1 spray 08/15/24 22:56 Fluticasone Propionate 0.05% Na Spr 16 Gm Btl (*Bkc) NASAL DAILY PRN allergy symptoms Meropenem 1 gm in 100 mls @ 200 mls/hr 08/16/24 22:00 08/22/24 13:49 IVPB 08/23/24 14:29 200 mls/hr Q8HR RILEY Administration Levothyroxine Sodium 112 mcg 08/16/24 06:30 08/22/24 05:58 Levothyroxine Sodium 112 Mcg Tablet PO 112 mcg DAILY@0630 RILEY Administration Levothyroxine Sodium 25 mcg 08/16/24 06:30 08/22/24 05:58 Levothyroxine Sodium 25 Mcg Tablet PO 25 mcg DAILY@0630 RILEY Administration Metoprolol Succinate 50 mg 08/16/24 09:00 08/22/24 08:22 Metoprolol Succinate Ext Rel 50 Mg Tabcr PO 50 mg DAILY RILEY Administration Multi-Ingred Cream/Lotion/Oil/Oint 1 applic 08/21/24 09:35 08/22/24 08:23 Eucerin Cream 120 Gm Jar TOPICAL 1 applic BID RILEY Administration Home Gemtesa 75 75 mg 08/20/24 09:00 08/22/24 08:20 Mg PO 09/19/24 08:59 75 mg DAILY RILEY Administration Nystatin 5 ml 08/17/24 09:00 08/22/24 13:48 Nystatin 100,000 Units/Ml Susp 5 Ml Oral.Susp PO 5 ml QID RILEY Administration Ondansetron HCl 4 mg 08/15/24 11:40 Ondansetron Inj 4 Mg/2 Ml Vial IV PUSH Q4H PRN Nausea Pantoprazole Sodium 40 mg 08/16/24 09:00 08/22/24 08:23 Pantoprazole 40 Mg Tablet PO 40 mg QAM RILEY Administration Polyethylene Glycol 17 gm 08/16/24 09:00 08/22/24 08:18 Polyethylene Glycol 3350 17 Gm Powd.Pack PO 17 gm DAILY RILEY Administration Pravastatin Sodium 10 mg 08/16/24 09:00 08/22/24 08:20 Pravastatin Sodium 10 Mg Tablet PO 10 mg DAILY RILEY Administration Pregabalin 100 mg 08/15/24 23:50 08/22/24 13:49 Pregabalin (*Crx) 50 Mg Capsule PO 100 mg Q8HR RILEY Administration Labs Labs: Laboratory Results - last 24 hr 08/22/24 04:37 WBC 4.7 RBC 4.35 Hgb 12.7 Hct 40.0 MCV 92.0 MCH 29.2 MCHC 31.8 L RDW 13.9 Plt Count 221 MPV 10.7 H Immature Gran % (Auto) 0.2 Neut % (Auto) 46.1 Lymph % (Auto) 40.0 [place] % (Auto) 7.7 Eos % (Auto) 4.9 H Baso % (Auto) 1.1 Lymph # (Auto) 1.86 [place] # (Auto) 0.4 Eos # (Auto) 0.2 Baso # (Auto) 0.1 Abs Immat Gran (auto) 0.01 Absolute Neuts (auto) 2.1 Absolute Nucleated RBC 0.000 Nucleated RBC % 0.0 Sodium 138 Potassium 4.1 Chloride 107 Carbon Dioxide 25 Anion Gap 6 BUN 12 Creatinine 0.56 L Estim Creat Clear Calc 92 Estimated GFR > 60 Glucose 103 Calcium 9.9 Magnesium 2.3 Quality VTE Prophylaxis VTE prophylaxis: pharmacologic ordered
[2024-08-22 20:00] VITALS: BP 154/59; PULSE 70; RESP 16; TEMP 36.5; O2SAT 98
[2024-08-23] VITALS: BP 139/54; PULSE 62; RESP 16; TEMP 36.2; O2SAT 97
[2024-08-23 04:00] VITALS: BP 145/63; PULSE 62; RESP 16; TEMP 36.4; O2SAT 100
[2024-08-23] MEDS: ACETAMINOPHEN 325 MG TABLET 650 MG PO ×2 (05:33→13:04)
[2024-08-23] MEDS: diphenhydrAMINE HCl CAP 25 MG CAPSULE PO (05:33)
[2024-08-23] MEDS: PREGABALIN (*CRX) 50 MG CAPSULE 100 MG PO ×2 (05:34→13:55)
[2024-08-23] MEDS: LEVOTHYROXINE SODIUM 25 MCG TABLET PO (05:35)
[2024-08-23] MEDS: LEVOTHYROXINE SODIUM 112 MCG TABLET PO (05:35)
[2024-08-23] MEDS: MEROPENEM 1 GM/NS 100 ML BAG IVPB ×2 (05:36→13:54)
[2024-08-23 06:25] LABS: Hematocrit 42.0 % (37.0-47.0); Hemoglobin 13.3 g/dL (12.0-15.0); Immature Granulocyte Percent A 0.2 % (0-0.5); Lymphocytes Absolute Auto 1.64 K/mm3 (0.9-3.2); Mean Corpuscular HGB Conc 31.7 g/dl (32-36); Mean Corpuscular Hemoglobin 29.2 pg (26-34); Mean Corpuscular Volume 92.1 fl (80-100); Nucleated Red Blood Cells Absolute Auto 0.000 K/mm3 (0.0-0.012); Nucleated Red Blood Cells Perc 0.0 % (0.0-0.2); Platelet Count Result 199 k/mm3 (150-375); Red Blood Count 4.56 M/mm3 (4.2-5.4); White Blood Count 4.4 K/mm3 (4.5-10.0)
[2024-08-23 06:36] LABS: Anion Gap 8 mmol/L (4-12); Blood Urea Nitrogen 11 mg/dL (7-17); Calcium 9.9 mg/dL (8.4-10.2); Carbon Dioxide 25 mmol/L (22-30); Chloride 106 mmol/L (98-107); Estimated CRCL calculation 96 ml/min; Estimated Glomerular Filt Rate > 60; Glucose 124 mg/dL (65-110); Magnesium 2.0 mg/dL (1.6-2.3); Potassium 3.9 mmol/L (3.4-5.0); Sodium 139 mmol/L (137-145)
[2024-08-23 08:19] VITALS: PULSE 62; RESP 16; O2SAT 100
[2024-08-23 09:43] VITALS: BP 143/98; PULSE 62; RESP 16; TEMP 36.1; O2SAT 100
[2024-08-23 09:45] VITALS: PULSE 62
[2024-08-23] MEDS: METOPROLOL SUCCINATE EXT REL 50 MG TABCR PO (09:45)
[2024-08-23] MEDS: ASCORBIC ACID 500 MG TABLET PO (09:45)
[2024-08-23] MEDS: PANTOPRAZOLE 40 MG TABLET PO (09:45)
[2024-08-23] MEDS: PRAVASTATIN SODIUM 10 MG TABLET PO (09:45)
[2024-08-23] MEDS: NYSTATIN 100,000 UNITS/ML SUSP 5 ML ORAL.SUSP PO ×2 (09:46→13:05)
[2024-08-23] MEDS: VIBEGRON 75 MG 75 EACH PO (09:47)
[2024-08-23] MEDS: EUCERIN CREAM 120 GM JAR 1 APPLIC TOPICAL (09:50)
--- NOTE | 2024-08-23 11:42 | PM.DS ---
DS: Admitting Diagnosis Discharge Date 08/23/24 Admitting Diagnosis Abnormal labs DS: Discharge Diagnosis Discharge Diagnosis (1) MDRO (multiple drug resistant organisms) resistance: Status: Acute Assessment and Plan: Urine culture from 08/08 shows pseudomonas anginous sensitive to meropenem which i will start meropenem today and dc cefepime, pt mentions blood in her stool from cefepime -awaiting UC from yesterday -follow UC and BC -watch WCC (2) Frequent urinary tract infections: Code(s): N39.0 - Urinary tract infection, site not specified Status: Acute Assessment and Plan: Recurrent urinary tract infections -history of ESBL - multiple allergies to ABX (3) Chronic atrial fibrillation: Code(s): I48.20 - Chronic atrial fibrillation, unspecified Status: Acute Assessment and Plan: - chronic and stable - continue metoprolol succinate 50 mg p.o. daily (4) Hypothyroidism: Code(s): E03.9 - Hypothyroidism, unspecified Status: Acute Assessment and Plan: -chronic and stable -continue home Synthroid (5) Obesity (BMI 30-39.9): Code(s): E66.9 - Obesity, unspecified Status: Acute Assessment and Plan: - weight loss adviced (6) Chronic venous stasis dermatitis of both lower extremities: Code(s): I87.2 - Venous insufficiency (chronic) (peripheral) Status: Acute Assessment and Plan: -chronic -stocking ordered for venous insufficiency (7) Hypertension: Code(s): I10 - Essential (primary) hypertension Status: Acute Assessment and Plan: - chronic and stable - continue metoprolol Plan patient with recurrent UTI and now has MDRO (multiple drug resistant organisms) resistance, UTI and urine culture is growing Pseudomonas aeruginosa and being treated with meropenem, discuss with clinical pharmacist patient will require total of 7 days 07/25 of the antibiotics. patient will receive her last dose of antibiotics tomorrow, and will be discahrged, patient stats feels much better compared to when she arrived. will continue to monitor. HLD - continue statin GERD- PPI diet- cardiac diet code- DNR dvt prop- lovenox DS: Summary Hospital Course Hospital Course: patient with recurrent UTI and now has MDRO (multiple drug resistant organisms) resistance, UTI and urine culture is growing Pseudomonas aeruginosa and being treated with meropenem, discuss with clinical pharmacist patient will require total of 7 days 6/7 of the antibiotics. patient will receive her last dose of antibiotics tomorrow, and will be discahrged, patient stats feels much better compared to when she arrived. will continue to monitor. Patient clinical symptoms are improving, patient has completed 7 day course of her antibiotics, patient is clinically stable, will discharge today. Time Spent with Patient Time attestation: Total time spent providing and/or coordinating discharge services: Exam Narrative: GENERAL: Well-appearing,very anxious CHEST: Clear to auscultation. No respiratory distress. HEART: Regular rate and rhythm. Normal peripheral pulses. ABDOMEN: Soft, nontender, nondistended. EXTREMITIES: Normal range of motion. bilateral chronic venous stasis changes. SKIN: Warm, dry, no rash. NEURO: Alert and oriented x3. PSYCH: Normal mood and affect. DS: Data Data Completed and Pending Labs on day of discharge: Labs from last 24 hours 08/23/24 06:17 WBC 4.4 L RBC 4.56 Hgb 13.3 Hct 42.0 MCV 92.1 MCH 29.2 MCHC 31.7 L RDW 14.0 Plt Count 199 MPV 10.0 Immature Gran % (Auto) 0.2 Neut % (Auto) 48.7 Lymph % (Auto) 37.1 Anderson % (Auto) 8.1 Eos % (Auto) 4.8 H Baso % (Auto) 1.1 Lymph # (Auto) 1.64 [place] # (Auto) 0.4 Eos # (Auto) 0.2 Baso # (Auto) 0.1 Abs Immat Gran (auto) 0.01 Absolute Neuts (auto) 2.2 Absolute Nucleated RBC 0.000 Nucleated RBC % 0.0 Sodium 139 Potassium 3.9 Chloride 106 Carbon Dioxide 25 Anion Gap 8 BUN 11 Creatinine 0.53 L Estim Creat Clear Calc 96 Estimated GFR > 60 Glucose 124 H Calcium 9.9 Magnesium 2.0 Discharge Plan Discharge Attending physician on discharge: Zita Peace Consulting providers: Marita Blanchard; Zita Peace; aR Rivera Discharging Clinician: Etelvina Paul Patient Disposition: Home with Home Health Service Activity: as tolerated Diet: heart healthy Discharge Instructions: Per Care Coordination. Patient to have [facility] for RN/PT/OT eval and treat [phone]. They will contact patient to schedule first visit. patient to follow up with her primary care provider as soon as possible, patient is instructed if any symptoms redevelop to go to [facility] ER. Patient Instructions: Antibiotic Form Patient Language: Armenian Stand Alone Forms: General Discharge Information Follow-up/Referrals: Kassidy,Kelly Camacho, [employer] [Primary Care Provider] - Discharge Medications: New nystatin 100,000 unit/mL Suspension 5 ml PO QID Qty: 100 0RF Minerin Creme Cream 1 applic topical BID Qty: 60 0RF Continued pregabalin [Lyrica] 100 mg capsule 100 mg PO DAILY furosemide 20 mg tablet 20 mg PO DAILY PRN (Reason: swelling) nystatin 100,000 unit/gram powder See Rx Instructions .ROUTE .COMPLEX Rx Instructions: to affected areas TID acetaminophen [Tylenol] 325 mg Capsule 650 mg PO PRN PRN (Reason: Back Pain) Xiidra 5 % dropperette 2 drp EACH EYE BID polyethylene glycol 3350 [Miralax] 17 gram/dose Powder 17 g PO DAILY pregabalin 100 mg capsule 100 mg PO TID Rx Instructions: takes last dose at bedtime 2100 metoprolol succinate 50 mg tablet extended release 24 hr 50 mg PO DAILY pravastatin 10 mg tablet 10 mg PO DAILY Premarin 0.625 mg/gram cream 1 applic vaginal EVERY OTHER DAY ergocalciferol (vitamin D2) 1,250 mcg (50,000 unit) capsule 1,250 mcg PO WEEKLY Gemtesa 75 mg tablet 75 mg PO DAILY ibuprofen 600 mg tablet 600 mg PO TID PRN (Reason: pain) Qty: 30 0RF acetaminophen 500 mg capsule 1,000 mg PO Q6H PRN (Reason: pain) Qty: 30 0RF ascorbic acid (vitamin C) 500 mg tablet 500 mg PO DAILY Cequa 0.09 % dropperette 1 drp EACH EYE Q12H cyanocobalamin (vitamin B-12) 1,000 mcg/mL solution 1,000 mcg subcut MONTHLY fluticasone propionate 50 mcg/actuation spray,suspension 1 spray intranasal DAILY PRN (Reason: allergy symptoms) Rx Instructions: administer into each nostril omeprazole 20 mg capsule,delayed release(DR/EC) 20 mg PO DAILY levothyroxine 137 mcg tablet 137 mcg PO DAILY Discontinued cephalexin 500 mg capsule 500 mg PO Q6H 5 Days Qty: 20 0RF Date of admission: 08/16/24 16:59 Primary Care Provider: KassidyKelly Admitting Provider: Williams Fong Attending physician on admission: Etelvina Paul Condition: Stable
== END 2024-08-23 15:41 | disposition home health service (06) | DRG 690 ==
LOC: ANHED 11:46 → ANH2MED 13:00
PROVIDERS: Family Medicine; Nurse Practitioner; Admitting Provider Internal Medicine; Emergency Provider Emergency Medicine; Visit Provider Family Medicine
DX: N39.0 Urinary tract infection, site not specified (principal); Z16.24 Resistance to multiple antibiotics; I48.20 Chronic atrial fibrillation, unspecified; E03.9 Hypothyroidism, unspecified; E66.9 Obesity, unspecified; I87.2 Venous insufficiency (chronic) (peripheral); G47.33 Obstructive sleep apnea (adult) (pediatric); E78.5 Hyperlipidemia, unspecified; I10 Essential (primary) hypertension; Z68.39 Body mass index [BMI] 39.0-39.9, adult; B96.5 Pseudomonas (aeruginosa) (mallei) (pseudomallei) as the cause of diseases classified elsewhere; Z66 Do not resuscitate
CPT/HCPCS: 36415; 80048; 80053; 81001; 83735; 85025; 85027; 87040; 87086; 87186; 93005; 96365; 96372; 96375; 97161; 97165; 97530; 97535; 99285; A9270; G0378; J0692; J1650; J2185

== ENCOUNTER 2024-11-04 12:30 | Outpatient (RCR) | payer MEDICARE, SELFPAY | END 2024-12-24 14:32 | disposition home or self-care (01) | LOC: ANHCPREHAB 12:30 | PROVIDERS: Visit Provider Internal Medicine | DX: I70.218 Atherosclerosis of native arteries of extremities with intermittent claudication, other extremity (principal) | CPT/HCPCS: 93668 ==

== ENCOUNTER 2025-02-14 10:07 | Emergency (ER) | payer MEDICARE, SELFPAY ==
[2025-02-14] VITALS (21 sets, daily range): BP systolic 119–195; BP diastolic 70–101; PULSE 85–140; RESP 13–25; TEMP 36.4–36.8; O2SAT 95–100
--- NOTE | ~2025-02-14 | XR_ITS ---
Examination: XR chest 2V Clinical History: SOA Comparison: 08/08/2024 Technique: PA and Lateral Findings: Mild cardiomegaly. Mild chronic bibasilar atelectasis and/or scarring. Minimal basilar predominant interstitial markings. No acute bony abnormality. IMPRESSION: 1. Suspect mild interstitial pulmonary edema. 2. Otherwise no acute abnormality. Reviewed, dictated and finalized at location [facility]
--- NOTE | 2025-02-14 10:47 | ECG_ITS ---
Test Date: 2025-02-14 11:05:40 Measurements Intervals [place] Rate: 116 P: 0 MI: 0 QRS: -7 QRSD: 88 T: 94 QT: 252 QTc: 350 Interpretive Statements ATRIAL FIBRILLATION WITH RAPID VENTRICULAR RESPONSE NONSPECIFIC ST & T-WAVE ABNORMALITY- ANTEROLAT/HIGH LAT LEADS ABNORMAL ECG Compared to ECG 08/17/2024 15:03:52 Sinus rhythm no longer present Electronically Signed On 02-14-2025 20:15:21 [employer] by Ra Rivera D.O.
[2025-02-14 11:01] LABS: Hematocrit 44.3 % (37.0-47.0); Hemoglobin 14.5 g/dL (12.0-15.0); Immature Granulocyte Percent A 0.2 % (0-0.5); Lymphocytes Absolute Auto 1.54 K/mm3 (0.9-3.2); Mean Corpuscular HGB Conc 32.7 g/dl (32-36); Mean Corpuscular Hemoglobin 29.1 pg (26-34); Mean Corpuscular Volume 89.0 fl (80-100); Nucleated Red Blood Cells Absolute Auto 0.000 K/mm3 (0.0-0.012); Nucleated Red Blood Cells Perc 0.0 % (0.0-0.2); Platelet Count Result 232 k/mm3 (150-375); Red Blood Count 4.98 M/mm3 (4.2-5.4); White Blood Count 5.4 K/mm3 (4.5-10.0)
--- NOTE | 2025-02-14 11:06 | ED.GENADULT ---
HPI - General Adult General Chief complaint: Extremity Problem,Nontraumatic Stated complaint: bilat leg infections? Time Seen by Provider: 02/14/25 10:09 History of Present Illness HPI narrative: Patient is an 84-year-old female who presents ER with swelling to her legs bilaterally. Worsening over the last 2 days. She has noticed some weeping. There is mild erythema. Patient is supposed to take Lasix but she has stopped taking it because she currently has UTI which was treated with fosfomycin yesterday. She does not like urinating all the time and so she discontinued her medication. No fevers or chills or sweats. She does feel as though her AFib is acting up and is causing her some palpitations. She has not yet taken her metoprolol today. Related Data Home Medications ?Medication ?Instructions ?Recorded ?Confirmed ?Last Taken ?Type pregabalin 100 mg capsule (Lyrica) 100 mg PO DAILY 06/17/20 08/15/24 08/11/23 21:00 History conjugated estrogens 0.625 mg/gram 1 applic vaginal EVERY OTHER DAY 08/02/22 08/15/24 12/02/22 History vaginal cream (Premarin) ergocalciferol (vitamin D2) 1,250 1,250 mcg PO WEEKLY 08/02/22 08/15/24 08/05/23 History mcg (50,000 unit) capsule metoprolol succinate 50 mg 50 mg PO DAILY 08/02/22 08/15/24 09/20/23 History tablet,extended release 24 hr pravastatin 10 mg tablet 10 mg PO DAILY 08/02/22 08/15/24 08/12/23 08:00 History vibegron 75 mg tablet (Gemtesa) 75 mg PO DAILY 08/02/22 08/15/24 08/09/23 History acetaminophen 325 mg capsule 650 mg PO PRN PRN Back Pain 08/09/23 08/15/24 Unknown History (Tylenol) furosemide 20 mg tablet 20 mg PO DAILY PRN swelling 08/09/23 08/15/24 Unknown History nystatin 100,000 unit/gram topical See Rx Instructions .Route .COMPLEX 08/09/23 08/15/24 08/09/23 History powder lifitegrast 5 % eye drops in a 2 drp EACH EYE BID 09/21/23 08/15/24 Unknown History dropperette (Xiidra) polyethylene glycol 3350 17 17 g PO DAILY 09/21/23 08/15/24 Unknown History gram/dose oral powder (Miralax) pregabalin 100 mg capsule 100 mg PO TID 09/22/23 08/15/24 09/21/23 09:00 History ascorbic acid (vitamin C) 500 mg 500 mg PO DAILY 08/15/24 08/15/24 Unknown History tablet cyanocobalamin (vitamin B-12) 1,000 mcg subcut MONTHLY 08/15/24 08/15/24 Unknown History 1,000 mcg/mL injection solution cyclosporine 0.09 % eye drops in a 1 drp EACH EYE Q12H 08/15/24 08/15/24 Unknown History dropperette (Cequa) fluticasone propionate 50 1 spray intranasal DAILY PRN 08/15/24 08/15/24 Unknown History mcg/actuation nasal allergy symptoms spray,suspension levothyroxine 137 mcg tablet 137 mcg PO DAILY 08/15/24 08/15/24 Unknown History omeprazole 20 mg capsule,delayed 20 mg PO DAILY 08/15/24 08/15/24 Unknown History release Allergies Allergy/AdvReac Type Severity Reaction Status Date / Time atorvastatin Allergy Mild Muscle Pain Verified 02/14/25 10:16 ciprofloxacin Allergy Unknown Hives Verified 02/14/25 10:16 codeine Allergy Unknown UNKNOWN Verified 02/14/25 10:16 diltiazem Allergy Unknown Unknown Verified 02/14/25 10:16 Iodinated Contrast Media Allergy Unknown HIVES AND Verified 02/14/25 10:16 RASH isosorbide Allergy Unknown Unknown Verified 02/14/25 10:16 latex Allergy Unknown Rash Verified 02/14/25 10:16 levofloxacin Allergy Unknown Rash Verified 02/14/25 10:16 Mycobacterium Tuberculosis Allergy Unknown rash, a-fib Verified 02/14/25 10:16 (Tubercu (Mycobacterium Tuberculosis (Tuberculin PPD)) nitrofurantoin Allergy Unknown ITCH AND Verified 02/14/25 10:16 DIZZY Penicillins Allergy Unknown UTI,yeast,U Verified 02/14/25 10:16 TI,yeast prednisone Allergy Unknown Hives / Verified 02/14/25 10:16 Red Face Sulfa (Sulfonamide Allergy Unknown Anaphylactic Verified 02/14/25 10:16 Antibiotics) Shock cefepime AdvReac Unknown patient Verified 02/14/25 10:16 states blood in stool epinephrine AdvReac Unknown Rash Verified 02/14/25 10:16 Review of Systems Review of Systems: All systems reviewed & are unremarkable except as noted in HPI and below Constitutional: Constitutional: Reports no additional constitutional complaints ENT: Reports system reviewed and no additional complaints, except as documented Cardiovascular: Cardiovascular: Reports no additional cardiovascular complaints Respiratory: Respiratory: Reports no additional respiratory complaints Gastrointestinal: Gastrointestinal: Reports no additional gastrointestinal complaints Integumentary/Breasts: Skin/Breast: Reports system reviewed and no additional complaints, except as docu PMFSH Past Medical History Medical History Hard of hearing Pulmonary hypertension Rhinitis Frequent urinary tract infections Hypothyroidism Shortness of Breath Obstructive sleep apnea Chronic atrial fibrillation Hypersomnia Obesity (BMI 30-39.9) SOB (shortness of breath) Sleep-disordered breathing Surgical History Surgical History History of hysterectomy Family History Family History Mother Carcinoma of colon Father Family history of emphysema, Onset Age: 60 Social History Social History Smoking status: Never smoker Second hand tobacco smoke exposure: No Alcohol intake: never Substance use: never Substance use type: does not use Lack of Transportation: No Lack of Food: Never True Current Housing: I Have Housing Concerned About Future Housing: No Difficulty Paying Gas/Electric Bills: No Difficulty Paying for Meds: No Currently Unemployed: No Education: Master's Degree or Higher Difficulty w/ Childcare or Family Care: No Living arrangements: alone Occupation/Education: retired Spiritual care concerns: No Exam Narrative: GENERAL: Well-appearing, well-nourished, and in no acute distress. HEAD: Normocephalic, atraumatic. ENT: Mucous membranes moist. CHEST: Clear to auscultation. No respiratory distress. HEART: Irregularly irregular rate and rhythm that is tachycardic. Normal peripheral pulses. ABDOMEN: Soft, nontender, nondistended. EXTREMITIES: Normal range of motion. 2+ edema. Chronic venous stasis changes. SKIN: Warm, dry, erythema of the lower extremities in area chronic venous stasis changes without significant warmth. NEURO: Alert and oriented x3. PSYCH: Normal mood and affect. Course Course Emergency Course: Heart rate normalized after IV Lopressor and oral metoprolol. Patient is up and ambulatory without issue. She will receive some Lasix for diuresis. Larry wraps have been applied to the lower extremities bilaterally. Infectious markers negative. Electrolytes normal. Discharge home. Troponin negative. BNP within acceptable limits. Discussed the importance of compliance with home medication. Vital Signs Vital signs: Vital Signs Temperature 97.5 F L 02/14/25 10:04 Pulse Rate 93 02/14/25 10:04 Respiratory Rate 16 02/14/25 10:04 Blood Pressure 182/95 H 02/14/25 10:04 Pulse Oximetry 96 02/14/25 10:04 Oxygen Delivery Room Air 02/14/25 10:04 Temperature 97.5 F L 02/14/25 10:04 Pulse Rate 92 02/14/25 12:17 Respiratory Rate 20 02/14/25 12:17 Blood Pressure 145/86 H 02/14/25 12:17 Pulse Oximetry 100 02/14/25 12:17 Oxygen Delivery Room Air 02/14/25 10:04 [facility] Differential Diagnosis Differential Diagnosis: CHF exacerbation, cellulitis, DVT, AFib with RVR, acute coronary syndrome, sepsis Medical Records I have reviewed the following patient records and this information was taken into consideration when formulating the assessment and plan.: previous labs Lab Data [facility] Lab Attestation statement: I personally reviewed the patient's lab results. 02/14/25 10:55 02/14/25 10:55 Labs: Lab Results 02/14/25 Range/Units 10:55 WBC 5.4 (4.5-10.0) K/mm3 RBC 4.98 (4.2-5.4) M/mm3 Hgb 14.5 (12.0-15.0) g/dL Hct 44.3 (37.0-47.0) % MCV 89.0 (80-100) fl MCH 29.1 (26-34) pg MCHC 32.7 (32-36) g/dl RDW 14.1 (11.5-14.5) % Plt Count 232 (150-375) k/mm3 MPV 10.0 (7.4-10.4) fl Immature Gran % (Auto) 0.2 (0-0.5) % Neut % (Auto) 60.3 (45.5-73.1) % Lymph % (Auto) 28.7 (18.3-44.2) % Sanders % (Auto) 6.2 (2.6-8.5) % Eos % (Auto) 3.5 (0-4.4) % Baso % (Auto) 1.1 (0.2-1.2) % Lymph # (Auto) 1.54 (0.9-3.2) K/mm3 Sanders # (Auto) 0.3 (0.1-0.6) K/mm3 Eos # (Auto) 0.2 (0-0.3) K/mm3 Baso # (Auto) 0.1 (0.0-0.1) K/mm3 Abs Immat Gran (auto) 0.01 (0.00-0.031) K/mm3 Absolute Neuts (auto) 3.2 (1.3-6.7) K/mm3 Absolute Nucleated RBC 0.000 (0.0-0.012) K/mm3 Nucleated RBC % 0.0 (0.0-0.2) % PT 15.0 H (11.1-14.7) Seconds INR 1.2 APTT 30.3 (22.3-36.8) Seconds Sodium 142 (137-145) mmol/L Potassium 3.8 (3.4-5.0) mmol/L Chloride 108 H (98-107) mmol/L Carbon Dioxide 27 (22-30) mmol/L Anion Gap 7 (4-12) mmol/L BUN 12 (7-17) mg/dL Creatinine 0.67 L (0.7-1.0) mg/dL Estim Creat Clear Calc 80 ml/min Estimated GFR > 60 (59 - ) Glucose 122 H (65-110) mg/dL Calcium 10.5 H (8.4-10.2) mg/dL Total Bilirubin 0.7 (0.2-1.3) mg/dL AST 31 (14-36) U/L ALT 29 (6-35) U/L Alkaline Phosphatase 136 H (38-126) U/L Troponin I < 0.012 (0.000-0.034) ng/mL NT-Pro-B Natriuret Pep 227 H (19.9-100) pg/mL Total Protein 8.1 (6.3-8.2) g/dL Albumin 4.5 (3.5-5.1) g/dL Imaging Data Attestation: I personally reviewed and interpreted this imaging study as follows: Radiologist's impression: ITS Impressions Chest X-Ray 02/14/25 12:17 IMPRESSION: 1. Suspect mild interstitial pulmonary edema. 2. Otherwise no acute abnormality. ECG Data EKG #1: ECG completion date: 02/14/25 ECG completion time: 11:05 tachycardia (116), atrial fibrillation, non-specific ST changes, normal QRS and normal QT Discharge Plan Discharge Clinical Impression: Edema of extremity, Atrial fibrillation with RVR Patient Disposition: Home Condition: Stable Instructions: A-fib (Atrial Fibrillation) (ED), Leg Edema (ED) Additional Instructions: Please return to the emergency department if you develop severe and persistent chest pain, difficulty breathing, dizziness, leg swelling or if you are coughing up blood as these can be signs of a medical emergency. Please call your doctor for a follow up appointment to determine the need for further testing. Patient Language: Bulgarian Prescriptions: No Action pregabalin [Lyrica] 100 mg capsule 100 mg PO DAILY furosemide 20 mg tablet 20 mg PO DAILY PRN (Reason: swelling) nystatin 100,000 unit/gram powder See Rx Instructions .ROUTE .COMPLEX Rx Instructions: to affected areas TID acetaminophen [Tylenol] 325 mg Capsule 650 mg PO PRN PRN (Reason: Back Pain) Xiidra 5 % dropperette 2 drp EACH EYE BID polyethylene glycol 3350 [Miralax] 17 gram/dose Powder 17 g PO DAILY pregabalin 100 mg capsule 100 mg PO TID Rx Instructions: takes last dose at bedtime 2100 metoprolol succinate 50 mg tablet extended release 24 hr 50 mg PO DAILY pravastatin 10 mg tablet 10 mg PO DAILY Premarin 0.625 mg/gram cream 1 applic vaginal EVERY OTHER DAY ergocalciferol (vitamin D2) 1,250 mcg (50,000 unit) capsule 1,250 mcg PO WEEKLY Gemtesa 75 mg tablet 75 mg PO DAILY ibuprofen 600 mg tablet 600 mg PO TID PRN (Reason: pain) Qty: 30 0RF acetaminophen 500 mg capsule 1,000 mg PO Q6H PRN (Reason: pain) Qty: 30 0RF ascorbic acid (vitamin C) 500 mg tablet 500 mg PO DAILY Cequa 0.09 % dropperette 1 drp EACH EYE Q12H cyanocobalamin (vitamin B-12) 1,000 mcg/mL solution 1,000 mcg subcut MONTHLY fluticasone propionate 50 mcg/actuation spray,suspension 1 spray intranasal DAILY PRN (Reason: allergy symptoms) Rx Instructions: administer into each nostril omeprazole 20 mg capsule,delayed release(DR/EC) 20 mg PO DAILY levothyroxine 137 mcg tablet 137 mcg PO DAILY nystatin 100,000 unit/mL Suspension 5 ml PO QID Qty: 100 0RF Minerin Creme Cream 1 applic topical BID Qty: 60 0RF Follow-up/Referrals: Mehdi,MD Xiang [Primary Care Provider, Unknown] - 1 Week
[2025-02-14 11:14] LABS: Alanine Aminotransferase 29 U/L (6-35); Albumin Level 4.5 g/dL (3.5-5.1); Alkaline Phosphatase 136 U/L (38-126); Anion Gap 7 mmol/L (4-12); Aspartate Amino Transferase 31 U/L (14-36); Bilirubin,Total 0.7 mg/dL (0.2-1.3); Blood Urea Nitrogen 12 mg/dL (7-17); Calcium 10.5 mg/dL (8.4-10.2); Carbon Dioxide 27 mmol/L (22-30); Chloride 108 mmol/L (98-107); Estimated CRCL calculation 80 ml/min; Estimated Glomerular Filt Rate > 60; Glucose 122 mg/dL (65-110); Potassium 3.8 mmol/L (3.4-5.0); Sodium 142 mmol/L (137-145); Total Protein 8.1 g/dL (6.3-8.2)
[2025-02-14 11:24] LABS: NT Pro B Type Natriuretic Pept 227 pg/mL (19.9-100); Troponin I < 0.012 ng/mL (0.000-0.034)
[2025-02-14 11:32] LABS: INR 1.2; Prothrombin Time 15.0 Seconds (11.1-14.7)
[2025-02-14 11:33] LABS: Partial Thromboplastin Time 30.3 Seconds (22.3-36.8)
[2025-02-14] MEDS: METOPROLOL SUCCINATE EXT REL 50 MG TABCR PO (11:50)
[2025-02-14] MEDS: METOPROLOL TARTRATE INJ 5 MG/5 ML VIAL IV PUSH (11:50)
[2025-02-14] MEDS: FUROSEMIDE INJ 40 MG/4 ML VIAL 20 MG IV PUSH (13:11)
== END 2025-02-14 14:07 | disposition home or self-care (01) ==
PROVIDERS: Emergency Provider Emergency Medicine; PCP Family Medicine
DX: R60.0 Localized edema (principal); I48.20 Chronic atrial fibrillation, unspecified; R06.02 Shortness of breath; I27.20 Pulmonary hypertension, unspecified; G47.33 Obstructive sleep apnea (adult) (pediatric); Z79.899 Other long term (current) drug therapy
CPT/HCPCS: 36415; 71046; 80053; 83880; 84484; 85025; 85610; 85730; 93005; 96374; 96375; 99284; A9270; J0616; J1938